=== PATIENT | female | born 1955 | race Caucasian/White ===

== ENCOUNTER 2020-02-29 11:00 | Outpatient (CLI) | payer OTHER, SELFPAY ==
--- NOTE | ~2020-02-29 | CT_ITS ---
EXAMINATION: CT lung screening DATE: 02/29/2020 11:32 INDICATION: History of tobacco dependence TECHNIQUE: Computed tomography (CT) of the chest was performed without intravenous contrast. The dose -length product was 147.28 mGy-cm. Automated exposure control and iterative reconstruction technique were employed. COMPARISON: Chest dated 05/13/2019 FINDINGS: Calcified mediastinal lymph node, consistent with chronic granulomatous disease. No lymphad enopathy. No significant pleural or pericardial effusion. Severe emphysema. No endobronchial lesions. Calcified granuloma right upper lobe. There is an irregular shaped right upper lobe mass measuring 1 .8 x 1.7 x 1.1 cm. IMPRESSION: 1. Lung rads 4B, very suspicious for bronchogenic carcinoma. Recommend further evaluation with pet/CT and/or tissue sampling. 2: Severe emphysema. Reviewed, dictated and finalized at location B.
== END 2020-02-29 11:01 | disposition home or self-care (01) ==
LOC: ANHIMG 11:02
PROVIDERS: PCP Internal Medicine Infectious Disease; Visit Provider Nurse Practitioner Gerontology
DX: Z12.2 Encounter for screening for malignant neoplasm of respiratory organs (principal); Z87.891 Personal history of nicotine dependence; J43.9 Emphysema, unspecified; R91.8 Other nonspecific abnormal finding of lung field
CPT/HCPCS: G0297

== ENCOUNTER 2020-03-16 16:28 | Outpatient (CLI) | payer OTHER, SELFPAY ==
--- NOTE | ~2020-03-16 | US_ITS ---
US soft tissue UE LT 03/16/2020 16:57 Indication: Swelling of the left forearm for 2 months Procedure: High-resolution Limited ultrasound of the left forearm distally and posteriorly in the are a of swelling Comparison: No prior studies for comparison. Findings: Normal heterogeneous echotexture without focal solid or cystic mass. No abnormal fluid laura ections. Impression: 1: Normal soft tissue ultrasound of the left forearm in the area of swelling. No discrete mass. Reviewed, dictated and finalized at location A. Impression: 1: Normal soft tissue ultrasound of the left forearm in the area of swelling. N o discrete mass.
== END 2020-03-16 16:29 | disposition home or self-care (01) ==
PROVIDERS: PCP Internal Medicine Infectious Disease; Visit Provider Internal Medicine Infectious Disease
DX: R22.32 Localized swelling, mass and lump, left upper limb (principal)
CPT/HCPCS: 76882

== ENCOUNTER 2020-04-14 10:35 | Outpatient (CLI) | payer OTHER, SELFPAY ==
--- NOTE | ~2020-04-14 | XR_ITS ---
XR shoulder LT min 2V 04/14/2020 10:52 Indication: Left shoulder pain Procedure: 4 views left shoulder Comparison: No prior studies for comparison. Findings: No fracture, subluxation or dislocation. No significant soft tissue abnormality. No foreign bodies. Visualized lung parenchyma is unremarkable. Impression: 1: No significant bone or joint abnormality. Reviewed, dictated and finalized at location A. Impression: 1: No significant bone or joint abnormality.
== END 2020-04-14 10:36 | disposition home or self-care (01) ==
PROVIDERS: PCP Internal Medicine Infectious Disease; Visit Provider Internal Medicine Infectious Disease
DX: M25.512 Pain in left shoulder (principal)
CPT/HCPCS: 73030

== ENCOUNTER 2020-06-05 12:37 | Outpatient (CLI) | payer OTHER, SELFPAY ==
--- NOTE | 2020-06-12 10:45 | PFT_ITS ---
This report was moved to the correct visit, [id number], on June 14, 2020. Original report was signed by Dr. Perkins on June 13, 2020 at 1047. PFT Interpretation PFT Interpretation: This PFT met all criteria for ATS standards and reproducibility FEV/FVC post bronchodilator 25% FEV1 31% or 0.57 liters FVC 90% or 2.25 liters TLC 207% or 8.41 liters RV 399% RV/TLC 74% DLCO 30% when adjusted for alveolar volume but not adjusted for hemoglobin Flow volume loops showed severe expiratory coving. Impression: Severe airflow obstruction with severe hyperinlfation and air trapping. When compared to 2019 PFT. There has been some worsening of hyperinflation and air trapping but FEV1 has not significantly changed. Clinical correlation is advised. Report Initialized date/time: Meeta Perkins MD 06/13/20 / 1045 Electronically signed by: Meeta Perkins MD 06/13/20 1047 [facility]
--- NOTE | 2020-06-12 10:50 | SIXMIN_ITS ---
This report was moved to the correct visit, [id number], on June 14, 2020 at 1050. Original report was signed by Dr. Perkins on June 13, 2020 at 1053. Six Minute Walk Six Minute Walk: The patients O2 sats started at 94% on 2 liters and dropped as low as 94% on 2 liters Total walk distance was 450 feet using a walker conclusion: This patient did very well with 2 liters of oxgyen. I would recommend using 2 liters 09/03 and no need to increase with exertion Report Initialized date/time: Meeta Perkins MD 06/13/20 / 1050 Electronically signed by: Meeta Perkins MD 06/13/20 1056 [facility]
--- NOTE | 2020-06-13 10:45 | PFT_ITS ---
This report was moved to the correct visit, [id number], on June 14, 2020. Original report was signed by Dr. Perkins on June 13, 2020 at 1047. PFT Interpretation PFT Interpretation: This PFT met all criteria for ATS standards and reproducibility FEV/FVC post bronchodilator 25% FEV1 31% or 0.57 liters FVC 90% or 2.25 liters TLC 207% or 8.41 liters RV 399% RV/TLC 74% DLCO 30% when adjusted for alveolar volume but not adjusted for hemoglobin Flow volume loops showed severe expiratory coving. Impression: Severe airflow obstruction with severe hyperinlfation and air trapping. When compared to 2019 PFT. There has been some worsening of hyperinflation and air trapping but FEV1 has not significantly changed. Clinical correlation is advised. Report Initialized date/time: Meeta Perkins MD 06/13/20 / 1045 Electronically signed by: Meeta Perkins MD 06/13/20 1047 [facility]
== END 2020-06-05 12:38 | disposition home or self-care (01) ==
LOC: ANHPFT 12:38
PROVIDERS: PCP Internal Medicine Infectious Disease; Visit Provider Nurse Practitioner Gerontology
DX: J44.9 Chronic obstructive pulmonary disease, unspecified (principal); J96.10 Chronic respiratory failure, unspecified whether with hypoxia or hypercapnia
CPT/HCPCS: 94060; 94618; 94726; 94729

== ENCOUNTER 2020-07-04 09:04 | Outpatient (CLI) | payer OTHER, SELFPAY ==
--- NOTE | ~2020-07-04 | CT_ITS ---
EXAMINATION: CT chest wo con DATE: 07/04/2020 09:32 INDICATION: Right upper lobe malignant neoplasm TECHNIQUE: Computed tomography (CT) of the chest was performed without intravenous contrast. Automate d exposure control and iterative reconstruction technique were employed. Exam dose: 244.05 mGy-cm to candy exam DLP. COMPARISON: 03/03/2020 CT lung screening FINDINGS: Right upper lung irregular soft tissue mass currently measures approximately 8 x 16 mm maxi mal dimension compared to 9.3 x 18.3 mm maximal dimension on 02/29/2020. Bilateral apical scarring, stable. Severe emphysema is again noted. No pulmonary infiltrate or consolidation. Calcified right upper lobe pulmonary granuloma and calcified right hilar and mediastinal nodes, consi stent with old pulmonary granulomatous disease. No thoracic aortic aneurysm or dissection. Normal heart size. No pericardial or pleural effusion. No hilar or mediastinal mass lesion or lymphadenopathy. Normal morphology of the adrenal glands. Included upper abdominal structures are unremarkable other t brody abdominal aortic calcification, diverticulosis of the splenic flexure of the colon. No suspicious osteolytic or osteoblastic lesions are noted. IMPRESSION: Mildly diminished size of right upper lobe soft tissue mass since 02/29/2020 Emphysema Reviewed, dictated and finalized at Location A. Reviewed, dictated and finalized at location B. 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
== END 2020-07-04 09:05 | disposition home or self-care (01) ==
PROVIDERS: PCP Internal Medicine Infectious Disease; Referring Provider Internal Medicine Medical Oncology; Visit Provider Radiology Radiation Oncology
DX: C34.11 Malignant neoplasm of upper lobe, right bronchus or lung (principal); J43.9 Emphysema, unspecified; F17.210 Nicotine dependence, cigarettes, uncomplicated
CPT/HCPCS: 71250

== ENCOUNTER 2020-07-17 09:00 | Outpatient (RCR) | payer OTHER, SELFPAY ==
[2020-05-24 09:40] VITALS: BP_SYST 108
--- NOTE | 2020-05-24 10:58 | PTOPEVAL ---
INITIAL PHYSICAL THERAPY EVALUATION and PLAN OF CARE Thank you for referring July Lloyd to [facility].? July is scheduled to be seen for physical therapy? 2x/week for 8 weeks. Please review, sign, date and return this plan of care ABENA. I agree with and certify that the following plan of care is medically necessary. Referring Physician Date Admitting Provider: Attending Provider: PHYSICIAN NOT ON STAFF Referring Provider: *PT Outpatient Evaluation Start: 05/24/20 09:53 Freq: Status: Active Protocol: Document 05/24/20 09:40 ALY (Rec: 05/24/20 10:57 ALY [id number]) Therapy Assessment Status Assessment Status Assessment Status Evaluation Outpatient Past Medical History Past Medical History Source of Past Medical History Patient Neurological History Hx Neurological Disorders No Significant History Cardiovascular History Hx Angina Yes Hx Hypercholesterolemia Yes Hx Hypertension Yes Respiratory History Hx Chronic Obstructive Pulmonary Disease Yes: end stage-oxygen all of (COPD) the time Hx Sleep Apnea Yes: moderate to severe Gastrointestinal History Hx Gastrointestinal Disorders No Significant History Genitourinary History Hx Genitourinary Disorders No Significant History Musculoskeletal History Hx Other Musculoskeletal Disorders Yes: L frozen shoulder 2019 Endocrine History Hx Endocrine Disorders No Significant History HEENT History Hx Cataracts Yes: R 2019 Other History Hx Cancer Yes: R lung Hx Radiation Therapy Yes Evaluation Information Problem Diagnosis L shoulder pain - L frozen shoulder Onset end of Spring, beginning Summer Subjective Information increase swelling distal L Query Text:As Reported By Patient/ forearm - testing was negative Family Began to feel pain in L shoulder, progressively got worse with lifting her L arm - then the pain worsened If pillows are supporting L arm - able to lie on L side [place] a pop when walking up the wall - the other day - able to move her arm a little farther. Able to shower and dress herself. Has aide to help her with IADLs, Diagnostic Tests X-Rays For This Problem Yes Prior Level of Function Activity Level (Last 3 Months) Occupation disabled Hand Dominance Right Medications
--- NOTE | 2020-06-07 09:34 | PCPTNOTE ---
Patient called & cancelled scheduled appointment this date due to not feel well.
--- NOTE | 2020-06-13 10:40 | WPDPFTINT ---
PFT Interpretation PFT Interpretation: This PFT met all criteria for ATS standards and reproducibility FEV/FVC post bronchodilator 25% FEV1 31% or 0.57 liters FVC 90% or 2.25 liters TLC 207% or 8.41 liters RV 399% RV/TLC 74% DLCO 30% when adjusted for alveolar volume but not adjusted for hemoglobin Flow volume loops showed severe expiratory coving. Impression: Severe airflow obstruction with severe hyperinlfation and air trapping. When compared to 2019 PFT. There has been some worsening of hyperinflation and air trapping but FEV1 has not significantly changed. Clinical correlation is advised.
--- NOTE | 2020-06-13 10:48 | WPDSIXMINUTE ---
Six Minute Walk Six Minute Walk: The patients O2 sats started at 94% on 2 liters and dropped as low as 94% on 2 liters Total walk distance was 450 feet using a walker conclusion: This patient did very well with 2 liters of oxgyen. I would recommend using 2 liters 09/03 and no need to increase with exertion
[2020-06-21 10:09] VITALS: BP_SYST 125
--- NOTE | 2020-07-02 12:00 | PCPTNOTE ---
Patient called & cancelled scheduled appointment this date due to feeling ill.
[2020-07-17 09:10] VITALS: BP_SYST 135
--- NOTE | 2020-07-17 09:53 | PTOPEVAL ---
PHYSICAL THERAPY DISCHARGE SUMMARY Thank you for referring July Lloyd to [facility].? July has been seen x 10 visits in PT - she needed to cancel a few due to illness. She has made increased gains with L shoulder ROM, strength, and functional abilities with decreased levels of pain. She is ready for d/c from PT to [facility]. I agree with July's discharge from physical therapy. Referring Physician Date Admitting Provider: Attending Provider: PHYSICIAN NOT ON STAFF Referring Provider: *PT Outpatient Evaluation Start: 05/24/20 09:53 Freq: Status: Active Protocol: Document 07/17/20 09:10 ALY (Rec: 07/17/20 09:53 ALY [id number]) Therapy Assessment Status Assessment Status Assessment Status Discharge Evaluation Information Problem Subjective Information July reports that she is Query Text:As Reported By Patient/ using L UE with most Family everything. Only difficulty that she has is with reaching behind her back with L UE. Hardly any pain anymore. Pain Assessment Timing of Pain Assessment Timing of Pain Assessment Assessment Pain Scale Pain Scale Used Numeric (1 - 10) Self Report Pain Assessment Left Shoulder(s) Reported Pain Level 0 Lowest Pain Intensity 0 Greatest Pain Intensity 1 Pain Score Pain Score 0: Self Report Upper Extremity Range of Motion Scapular/ Shoulder Range of Motion Left Shoulder Flexion - Active 140 Shoulder Flexion - Passive 155 Shoulder Extension - Active 60 Shoulder Abduction - Active 122 Shoulder Abduction - Passive 135 Shoulder Medial Rotation - Active 65 Shoulder Medial Rotation - Active L4 Query Text:Reach Behind the Back Shoulder Lateral Rotation - Active 80 Shoulder Lateral Rotation - Active C7 Query Text:Reach Behind the Head Scapular/Shoulder Range of Motion Pain,Soft Tissue Restriction Limitations Scapular/Shoulder Range of Motion ER in neutral - 60 Comments Upper Extremity Muscle Strength Testing Scapular/Shoulder Left Shoulder Flexion Strength 4+ Good + Shoulder Extension Strength 5 Normal Shoulder Abduction Strength 4 Good Shoulder Medial Rotation Strength 5 Normal Shoulder Lateral Rotation Strength 4+ Good + PT Clinical Summary Clinical Summary Protocol: PTEVCODE PT Clinical Summary SPADI - Pain score 6% disability score 10% total score 8% July has progressed well in PT. She has had a decrease in L shoulder pain - especially
== END 2020-07-17 14:58 | disposition home or self-care (01) ==
LOC: ANHPT 09:00
PROVIDERS: PCP Internal Medicine Infectious Disease
DX: M25.519 Pain in unspecified shoulder (principal)
CPT/HCPCS: 97110; 97140; 97162

== ENCOUNTER 2020-10-08 10:58 | Outpatient (CLI) | payer OTHER, SELFPAY ==
--- NOTE | ~2020-10-08 | CT_ITS ---
EXAMINATION:CT diagnostic chest wo con DATE: 10/08/2020 11:24 INDICATION: Lung cancer. TECHNIQUE: Computed tomography (CT) of the chest was performed without intravenous contrast. Automate d exposure control and iterative reconstruction technique were employed. The dose-length product (DLP ) was 295.89 mGy-cm. COMPARISON: Chest CT 07/04/2020, 02/29/2020 FINDINGS: There is severe emphysema. There is mild scarring at the lung apices. A calcified right upp er lobe nodule and calcified right hilar and mediastinal lymph nodes are consistent with old granulom atous disease. There is a 13 mm nodule in right lung upper lobe. There is thickening of the major fis sure in this area. No pleural effusion. The heart size is normal. There are coronary artery calcifica tions. No pericardial effusion. There is mild thoracic spondylosis. IMPRESSION: 1. 13 mm right upper lobe pulmonary nodule, stable from 07/04/2020 and improved from 15 mm on 02/29/20 20. Worsened thickening of the major fissure in this area may be changes of radiation therapy if the patient has that clinical history. 2. Severe emphysema. 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 13 mm right upper lobe pulmonary nodule, stable from 07/04/2020 and improved from 15 mm on 02/29/2020. Worsened thickening of the major fissure in this area may be changes of radiation therapy if the patient has that clinical history. 2. Severe emphysema.
== END 2020-10-08 10:59 | disposition home or self-care (01) ==
PROVIDERS: PCP Internal Medicine Infectious Disease; Visit Provider Radiology Radiation Oncology
DX: C34.11 Malignant neoplasm of upper lobe, right bronchus or lung (principal); F17.210 Nicotine dependence, cigarettes, uncomplicated; J43.9 Emphysema, unspecified
CPT/HCPCS: 71250

== ENCOUNTER 2020-12-11 14:51 | Outpatient (CLI) | payer OTHER, SELFPAY ==
--- NOTE | ~2020-12-11 | MM_ITS ---
EXAMINATION: MM screening lucio BI w arianna HISTORY: Screening mammogram TECHNIQUE: Craniocaudal and mediolateral oblique 3-D tomosynthesis images were obtained and synthetic 2-D images were generated. CAD analysis was submitted and interpreted. COMPARISON: 09/01/2019 bilateral digital screening mammogram BREAST PARENCHYMAL COMPOSITION: There are scattered areas of fibroglandular density. FINDINGS: Stable fibroglandular asymmetry. There is no evidence of suspicious mass, calcification, or architectural distortion to suggest malignancy in either breast. There has been no suspicious interv al change. IMPRESSION: 1. No mammographic evidence of malignancy. 2. Recommend routine screening mammography in one year. BI-RADS Category 2: Benign finding(s). Reviewed, dictated and finalized at location A.
== END 2020-12-11 14:52 | disposition home or self-care (01) ==
LOC: ANHIMG 14:54
PROVIDERS: PCP Internal Medicine Infectious Disease; Visit Provider Internal Medicine Infectious Disease
DX: Z12.31 Encounter for screening mammogram for malignant neoplasm of breast (principal)
CPT/HCPCS: 77063; 77067

== ENCOUNTER 2020-12-31 11:09 | Outpatient (CLI) | payer OTHER, SELFPAY ==
--- NOTE | ~2020-12-31 | CT_ITS ---
EXAMINATION: CT diagnostic chest wo con DATE: 12/31/2020 11:45 INDICATION: Right lung cancer TECHNIQUE: Computed tomography (CT) of the chest was performed without intravenous contrast. The dose -length product (DLP) was 240.08 mGy-cm. Automated exposure control and iterative reconstruction tech [employer] were employed. COMPARISON: 10/08/2020 FINDINGS: A 14 mm nodule in the right upper lobe is not significantly changed since the comparison ex amination. There is stable thickening of the right major fissure adjacent to the nodule. No new pulmo nary nodules are identified. There is severe emphysema. Calcified pulmonary nodules and calcified rig ht hilar and mediastinal lymph nodes are consistent with old granulomatous disease. No pathologically enlarged thoracic lymph nodes are identified. The heart size is normal. There is no pleural effusion or pneumothorax. There is mild thoracic spondylosis. Calcified coronary artery atherosclerosis is no caroline. IMPRESSION: 1. Stable right upper lobe nodule, consistent with primary bronchogenic carcinoma. 2. Stable thickening of the adjacent major fissure, possibly radiation change. Reviewed, dictated and finalized at location A. IMPRESSION: 1. Stable right upper lobe nodule, consistent with primary bronchogenic carcino ma. 2. Stable thickening of the adjacent major fissure, possibly radiation change.
== END 2020-12-31 11:10 | disposition home or self-care (01) ==
PROVIDERS: PCP Internal Medicine Infectious Disease; Visit Provider Radiology Radiation Oncology
DX: C34.11 Malignant neoplasm of upper lobe, right bronchus or lung (principal); F17.210 Nicotine dependence, cigarettes, uncomplicated; R91.8 Other nonspecific abnormal finding of lung field
CPT/HCPCS: 71250

== ENCOUNTER 2021-04-01 10:36 | Outpatient (CLI) | payer OTHER, SELFPAY ==
--- NOTE | ~2021-04-01 | CT_ITS ---
EXAMINATION: CT diagnostic chest wo con DATE: 04/01/2021 11:04 INDICATION: malignant neoplasm upper lobe, RT bronchus, nicotine depende TECHNIQUE: Computed tomography (CT) of the chest was performed without intravenous contrast. Addition al 3D reconstructions utilizing coronal maximum intensity projection (MIP) were performed. Automated exposure control and iterative reconstruction technique were employed. The dose-length product was 29 1.33 mGy-cm. COMPARISON: 12/31/2020 and 02/29/2020 FINDINGS: Severe upper lung predominant emphysema. No interval change since the most recent study of a 13 x 10 mm right upper lobe nodule which measured up to 1.7 x 1.1 cm on 02/29/2020. Unchanged underlying small region of pleural thickening and scarring which is also new since 02/29/2020 suggesting interval radi ation treatment. Calcified right upper lobe nodule and calcified right hilar and mediastinal lymph no colin consistent with old granulomatous disease. No other airspace opacities, pulmonary edema or pleura l effusion. Heart size is normal. Atherosclerotic coronary artery calcification and aortic valve calc ification. No pericardial effusion. Thoracic aorta is normal in caliber. No pathologically enlarged t horacic lymphadenopathy. Visualized upper abdomen is unremarkable. Moderate thoracic spondylosis. IMPRESSION: 1. No interval change in a 13 x 10 mm right upper lobe nodule with overlying region of lateral proxim al scarring with pleural thickening likely representing radiation treated primary bronchogenic carcin adam. Reviewed, dictated and finalized at location A. IMPRESSION: 1. No interval change in a 13 x 10 mm right upper lobe nodule with overlying re gion of lateral proximal scarring with pleural thickening likely representing r adiation treated primary bronchogenic carcinoma.
== END 2021-04-01 10:37 | disposition home or self-care (01) ==
LOC: ANHIMG 10:45
PROVIDERS: PCP Internal Medicine Infectious Disease; Visit Provider Radiology Radiation Oncology
DX: C34.11 Malignant neoplasm of upper lobe, right bronchus or lung (principal); F17.210 Nicotine dependence, cigarettes, uncomplicated
CPT/HCPCS: 71250

== ENCOUNTER 2021-06-11 12:54 | Outpatient (CLI) | payer MEDICARE, MEDICAID, SELFPAY ==
--- NOTE | ~2021-06-11 | XR_ITS ---
XR chest 2V 06/11/2021 13:24 Indication: COPD and shortness of breath Procedure: PA and lateral views of the chest Comparison: 05/13/2019 Findings: There is focal infiltrate of the right upper lobe which is new compared with prior study. C alcified granuloma right upper lung zone. The lungs are hyperinflated which is consistent with, but n ot diagnostic of chronic obstructive pulmonary disease. No significant effusion or pneumothorax. Hear t size normal. Impression: 1: Focal infiltrate right upper lobe which may represent atelectasis or pneumonia. Developing mass le ss favored. Recommend follow-up chest x-ray in 3-4 weeks following appropriate therapy to assess for resolution. If no resolution at that time, follow-up CT chest recommended. Reviewed, dictated and finalized at location A. Impression: 1: Focal infiltrate right upper lobe which may represent atelectasis or pneumon ia. Developing mass less favored. Recommend follow-up chest x-ray in 3-4 weeks following appropriate therapy to assess for resolution. If no resolution at elle t time, follow-up CT chest recommended.
== END 2021-06-11 12:55 | disposition home or self-care (01) ==
PROVIDERS: PCP Internal Medicine Infectious Disease
DX: J44.9 Chronic obstructive pulmonary disease, unspecified (principal)
CPT/HCPCS: 71046

== ENCOUNTER 2021-07-08 10:01 | Outpatient (CLI) | payer MEDICARE, MEDICAID, SELFPAY ==
--- NOTE | ~2021-07-08 | CT_ITS ---
EXAMINATION: CT diagnostic chest wo con EXAM DATE: 07/08/2021 10:29 INDICATION: Bronchogenic carcinoma of right lung, post treatment. TECHNIQUE: Spiral CT of the chest without contrast. Axial, coronal and sagittal images of the chest were reviewed. Coronal maximum intensity pixel images of chest reviewed. The dose-length product ( DLP) for this examination was 301.92 mGy-cm. The exposure was tailored according to patient size (au to mA exposure control), and iterative reconstruction (ASIR) was used as additional dose reduction te chnique. Comparison is made to prior examination from 04/01/2021. FINDINGS: Stable 13 x 10 mm right apical pleural-based density consistent with treated lung cancer. There is adjacent chronic pleural thickening and subacute appearing right 4th rib at same posterolate ral location, could be pathologic from radiation related osteitis. There is severe chronic emphysema and hyperinflation. There are no pleural or pericardial effusions. Tracheobronchial tree is patent. There is no media stinal, hilar or axillary lymphadenopathy. There is no pneumothorax. Heart normal in size. Ther e is mild coronary arterial calcification, arterial sclerosis. Upper abdomen is unremarkable. Ther e is mild thoracic spondylosis without osteoblastic or osteolytic lesions identified. IMPRESSION: 1. Stable treated right upper lobe lung cancer. 2. Underlying pleural thickening and subacute right 4th rib fracture probably pathological from radi ation osteitis. 3. Severe emphysema and hyperinflation. Reviewed, dictated and finalized at location A. 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 Stable treated right upper lobe lung cancer. 2. 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 3. Severe emphysema and hyperinflation.
== END 2021-07-08 10:02 | disposition home or self-care (01) ==
PROVIDERS: PCP Internal Medicine Infectious Disease; Visit Provider Radiology Radiation Oncology
DX: C34.91 Malignant neoplasm of unspecified part of right bronchus or lung (principal); J43.9 Emphysema, unspecified; R91.8 Other nonspecific abnormal finding of lung field
CPT/HCPCS: 71250

== ENCOUNTER 2021-09-24 16:14 | Emergency (ER) | payer MEDICARE, MEDICAID, SELFPAY ==
[2021-09-24] VITALS (14 sets, daily range): BP systolic 104–157; BP diastolic 62–96; PULSE 99–112; RESP 14–24; TEMP 36.6–36.9; O2SAT 95–100
--- NOTE | ~2021-09-24 | XR_ITS ---
EXAMINATION: XR chest 1V portable DATE: 09/24/2021 16:57 INDICATION: Shortness of breath. TECHNIQUE: A single frontal view of the chest was obtained. COMPARISON: Chest CT 07/08/2021, chest 2 views 06/11/2021 FINDINGS: There are lucencies in the lungs, consistent with emphysema. A calcified right lung nodule is consistent with old granulomatous disease. There is a 3 cm mass in right upper lobe. There is a di ffuse interstitial pattern in the lungs. No pleural effusion or pneumothorax. The heart size is job l. There are prominent paracardial fat pads. There are pathologic fractures of right fourth and fifth ribs. IMPRESSION: 1. Worsened mass in right lung upper lobe, consistent with primary bronchogenic carcinoma and treatme nt changes. 2. Pathologic fractures of right fourth and fifth ribs. 3. New interstitial pattern in the lungs suspicious for pulmonary edema versus atypical pneumonia. 4. Emphysema. Reviewed, dictated and finalized at location A. ACCOUNTANT IMPRESSION: 1. Worsened mass in right lung upper lobe, consistent with primary bronchogenic carcinoma and treatment changes. 2. Pathologic fractures of right fourth and fifth ribs. 3. New interstitial pattern in the lungs suspicious for pulmonary edema versus atypical pneumonia. 4. Emphysema.
--- NOTE | ~2021-09-24 | CT_ITS ---
EXAMINATION: CTA chest PE protocol DATE: 09/24/2021 18:24 INDICATION: Chest pain. Shortness of breath. TECHNIQUE: Computed tomography angiography (CTA) of the chest was performed with 100 mL Omnipaque-350 intravenous contrast timed to evaluate the pulmonary arteries. Coronal maximum intensity projection 3D-reconstructions were created by the technologist. Automated exposure control and iterative reconst ruction technique were employed. The dose-length product was 609.56 mGy-cm. COMPARISON: Chest CT 07/08/2021, 02/29/20 FINDINGS: There is severe emphysema. There is mild scarring at the lung apices. There are peripheral airspace opacities in right upper lobe measuring 4.3 x 1.5 cm. A calcified right lung nodule and calc ified right hilar lymph nodes are consistent with old granulomatous disease. There are airspace opaci ties in apicoposterior segment left upper lobe. There is septal thickening in left upper lobe. There are airspace opacities involving the lingula. No pleural effusion. The heart size is normal. No peric ardial effusion. There is no pulmonary embolus. There are healing fractures of right third, fourth, a nd fifth ribs. There is mild thoracic spondylosis. IMPRESSION: 1. Stable peripheral airspace opacities in right upper lobe, consistent with primary bronchogenic car cinoma and changes of radiation therapy. 2. Airspace opacities and septal thickening in left upper lobe, likely pneumonia. 3. Severe emphysema. 4. No pulmonary embolus. Reviewed, dictated and finalized at location A. R SPRAYER IMPRESSION: 1. Stable peripheral airspace opacities in right upper lobe, consistent with pr imary bronchogenic carcinoma and changes of radiation therapy. 2. Airspace opacities and septal thickening in left upper lobe, likely pneumoni a. 3. Severe emphysema. 4. No pulmonary embolus.
--- NOTE | 2021-09-24 16:24 | ECG_ITS ---
Measurements Intervals [place] Rate: 105 P: 78 VT: 132 QRS: 83 QRSD: 89 T: 50 QT: 340 QTc: 451 Interpretive Statements SINUS TACHYCARDIA BORDERLINE ST ABNORMALITY- ANTEROLATERAL LEADS BASELINE ARTIFACT- I, II, III, AVR, AVL, AVF, V1-V6 BORDERLINE ECG Electronically Signed On 09-25-2021 6:29:40 INTERNETWORKING TECHNICIAN by Sumeet Rutherford D.O.
[2021-09-24 16:37] LABS: Basophils Percent Auto 0.3 % (0.2-1.2); Eosinophils Absolute Auto 0.2 K/mm3 (0-0.3); Eosinophils Percent Auto 1.4 % (0-4.4); Hemoglobin 12.5 g/dL (12.0-15.0); Immature Granulocyte Absolute 0.04 K/mm3 (0.00-0.031); Immature Granulocyte Percent A 0.4 % (0-0.5); Lymphocytes Absolute Auto 0.86 K/mm3 (0.9-3.2); Lymphocytes Percent Auto 7.9 % (18.3-44.2); Mean Corpuscular HGB Conc 32.1 g/dl (32-36); Mean Corpuscular Hemoglobin 28.3 pg (26-34); Mean Corpuscular Volume 88.2 fl (80-100); Monocytes Absolute Auto 0.7 K/mm3 (0.1-0.6); Monocytes Percent Auto 6.8 % (2.6-8.5); Neutrophils Percent Auto 83.2 % (45.5-73.1); Platelet Count Result 316 k/mm3 (150-375); Red Blood Count 4.42 M/mm3 (4.2-5.4); Red Cell Distribution Width 13.2 % (11.5-14.5); White Blood Count 10.8 K/mm3 (4.5-10.0)
[2021-09-24 16:51] LABS: Alanine Aminotransferase 41 U/L (4-35); Albumin Level 4.5 g/dL (3.5-5.1); Alkaline Phosphatase 199 U/L (38-126); Anion Gap 10 mmol/L (8-16); Aspartate Amino Transferase 61 U/L (14-36); Bilirubin,Total 0.4 mg/dL (0.2-1.3); Blood Urea Nitrogen 15 mg/dL (7-17); Calcium 9.8 mg/dL (8.4-10.2); Carbon Dioxide 27 mmol/L (22-30); Chloride 99 mmol/L (98-107); Estimated CRCL calculation 71 ml/min; Estimated Glomerular Filt Rate > 60; Glucose 182 mg/dL (65-110); Potassium 3.4 mmol/L (3.4-5.0); Sodium 136 mmol/L (137-145)
--- NOTE | 2021-09-24 17:25 | ED.GENADULT ---
HPI - General Adult General Chief complaint: Fever Stated complaint: MULTIPLE C/O Time Seen by Provider: 09/24/21 16:28 Source: patient and RN notes reviewed History of Present Illness HPI narrative: Patient is 66 y/o female complaining of fever starting 2 days ago. She states that her fever is up to 103. She has been taking Tylenol, which usually helps bring the fever down. She also has cough, SOB and chest pain. She is on O2 at home for COPD. She has history of lung cancer and she received radiation in the past. Related Data Allergies Allergy/AdvReac Type Severity Reaction Status Date / Time oxycodone Allergy Severe Unknown Verified 09/24/21 18:32 meperidine Allergy Unknown Unknown Verified 09/24/21 18:32 Review of Systems Constitutional: Constitutional: Denies chills, Reports fever(s), Denies headache(s) and Denies weakness Eyes: Eyes: Denies blurry vision ENT: Denies headache(s) and Denies neck pain Cardiovascular: Cardiovascular: Reports chest pain and Reports dyspnea Respiratory: Respiratory: Reports cough and Reports dyspnea Gastrointestinal: Gastrointestinal: Denies abdominal pain, Denies diarrhea, Denies nausea and Denies vomiting Genitourinary: Genitourinary: Denies hematuria and Denies dysuria Musculoskeletal: Musculoskeletal: Denies back pain and Denies neck pain Neurologic: Denies headache(s) and Denies weakness Exam Const: General: no acute distress and well developed Orientation/consciousness: oriented to person, oriented to place, oriented to time and patient oriented x3 HENMT: Head: normocephalic Ears: external ears normal General nose exam: Normal external nose present Eyes: General: appearance normal, both eyes and all related structures Conjunctivae: conjunctivae normal Neck: Neck: normal visual inspection and full ROM Chest: Chest palpation & inspection: normal inspection of the chest and no tenderness Resp: Effort & Inspection: normal respiratory effort Auscultation: clear to auscultation bilaterally Cardio: Rate: regular rate Rhythm: regular rhythm GI: GI Palp: No abdominal tenderness and Yes Soft to palpation Skin: General skin exam: normal color and turgor normal Neuro: General: oriented to person, oriented to place, oriented to time and patient oriented x3 Cognition (Neuro): normal cognition Extrem: General: normal to inspection, full ROM and no pedal edema Psych: Appearance: grossly normal Mental Status: mental status grossly normal Affect: normal affect Course Reevaluation(s) Reevaluation #1: Offered patient admission for observation and IV antibiotics, but patient declined. Date: 09/24/21 Consultations Consultation #1: Discussed with Dr. Woods, who agrees to admit. Date: 09/24/21 Time: 23:21 Vital Signs Vital signs: Vital Signs Temperature 36.6 C 09/24/21 16:19 Pulse Rate 112 H 09/24/21 16:19 Respiratory Rate 23 H 09/24/21 16:19 Blood Pressure 157/77 H 09/24/21 16:19 Pulse Oximetry 100 09/24/21 16:19 Temperature 36.9 C 09/24/21 19:28 Pulse Rate 108 H 09/25/21 00:54 Respiratory Rate 24 H 09/25/21 00:54 Blood Pressure 127/78 09/25/21 00:54 Pulse Oximetry 98 09/25/21 00:54 Medical Decision Making Vital Signs Vital Signs: Vital Signs Temperature 36.6 C 09/24/21 16:19 Pulse Rate 112 H 09/24/21 16:19 Respiratory Rate 23 H 09/24/21 16:19 Blood Pressure 157/77 H 09/24/21 16:19 Pulse Oximetry 100 09/24/21 16:19 Temperature 36.9 C 09/24/21 19:28 Pulse Rate 108 H 09/25/21 00:54 Respiratory Rate 24 H 09/25/21 00:54 Blood Pressure 127/78 09/25/21 00:54 Pulse Oximetry 98 09/25/21 00:54 Lab Data Result diagrams: 09/24/21 16:31 09/24/21 16:31 Labs: Lab Results 09/24/21 09/24/21 09/24/21 Range/Units 16:31 16:31 16:31 WBC 10.8 H (4.5-10.0) K/mm3 RBC 4.42 (4.2-5.4) M/mm3 Hgb 12.5 (12.0-15.0) g/dL Hct 39.0 (37.0-47.0) % MCV 88.2 (80-100)
[2021-09-24] MEDS: ONDANSETRON INJ 4 MG/2 ML VIAL IV PUSH (18:33)
[2021-09-24 18:36] LABS: Troponin I < 0.012 ng/mL (0.000-0.034)
[2021-09-24 21:38] LABS: Troponin I < 0.012 ng/mL (0.000-0.034)
[2021-09-25 00:54] VITALS: BP 127/78; PULSE 108; RESP 24; O2SAT 98
== END 2021-09-25 00:55 | disposition home or self-care (01) ==
PROVIDERS: Emergency Medicine; Emergency Provider Emergency Medicine; PCP Internal Medicine Infectious Disease
DX: J18.9 Pneumonia, unspecified organism (principal); C34.91 Malignant neoplasm of unspecified part of right bronchus or lung; J44.9 Chronic obstructive pulmonary disease, unspecified; Z99.81 Dependence on supplemental oxygen; R00.0 Tachycardia, unspecified; R94.31 Abnormal electrocardiogram [ECG] [EKG]
CPT/HCPCS: 36415; 71045; 71275; 80053; 84484; 85025; 93005; 96365; 96368; 96375; 99284; J0456; J0696; J2405; Q9967

== ENCOUNTER 2021-10-09 09:55 | Outpatient (CLI) | payer MEDICARE, MEDICAID, SELFPAY ==
--- NOTE | ~2021-10-09 | CT_ITS ---
EXAMINATION: CT diagnostic chest wo con EXAM DATE: 10/09/2021 10:22 INDICATION: Bronchogenic Carcinoma Of Right Lung TECHNIQUE: Spiral CT of the chest without contrast. Axial, coronal and sagittal images of the chest were reviewed. Coronal maximum intensity pixel images of chest reviewed. The dose-length product ( DLP) for this examination was 273.26 mGy-cm. The exposure was tailored according to patient size (au to mA exposure control), and iterative reconstruction (ASIR) was used as additional dose reduction te chnique. There is no prior study for comparison. FINDINGS: Interval decrease in size, volume of previously seen left upper lobe, suprahilar airspace disease, could be resolving pneumonia given that prior study was 2 weeks ago. Stable appearance to farheen henry's treated right upper lobe cancer. Right 3rd-5th subacute appearing rib fractures, could be pat hologic from radiation osteitis. There are no pleural or pericardial effusions. Tracheobronchial t ree is patent. There is no mediastinal, hilar or axillary lymphadenopathy. There is no pneumothor ax. Heart normal in size. There is mild coronary arterial calcification, arterial sclerosis. Upp er abdomen is unremarkable. Lower rib bone island. There is moderate emphysema. IMPRESSION: 1. Stable treated right upper lobe cancer. 2. Improving left upper lobe airspace disease which would be most consistent with pneumonia. 3. Right 3rd-5th rib fractures could be from radiation osteitis. 4. Moderate emphysema. Reviewed, dictated and finalized at location G. DIRECTOR IMPRESSION: 1. Stable treated right upper lobe cancer. 2. Improving left upper lobe airspace disease which would be most consistent w ith pneumonia. 3. Right 3rd-5th rib fractures could be from radiation osteitis. 4. Moderate emphysema.
== END 2021-10-09 09:56 | disposition home or self-care (01) ==
LOC: ANHIMG 10:03
PROVIDERS: PCP Internal Medicine Infectious Disease; Visit Provider Radiology Radiation Oncology
DX: C34.11 Malignant neoplasm of upper lobe, right bronchus or lung (principal); I25.10 Atherosclerotic heart disease of native coronary artery without angina pectoris; S22.41XA Multiple fractures of ribs, right side, initial encounter for closed fracture; J43.9 Emphysema, unspecified
CPT/HCPCS: 71250

== ENCOUNTER 2022-01-23 10:02 | Outpatient (CLI) | payer MEDICARE, MEDICAID, SELFPAY ==
--- NOTE | 2022-01-23 12:42 | WPDSIXMINUTE ---
Six Minute Walk Procedure Procedure Performed Pulmonary Stress Test (6 min walk) Six Minute Walk Six Minute Walk: this 6 minute walk test was carried out with the patient breathing supplemental oxygen 2 liters/minute. The pre walk oxyhemoglobin saturation was 98%. The patient walked over 121 m with 1 stop during testing. During the walk, the oxyhemoglobin saturation remained 90% or higher. The perceived dyspnea on the Elia scale was 0 at baseline and increased to 2 at the end of the testing. Impression: No evidence of oxyhemoglobin desaturation on this testing.
--- NOTE | 2022-01-23 12:45 | WPDPFTINT ---
PFT Procedure Performed PFT Procedure Performed Spirometry with Pre/Post Bronchodilator Plethysmography (Lung Vol) Diffusing Cap (DLCO) Flow Vol Loop PFT Interpretation Lung volumes were measured with the body plethysmography method. The elevated FRC and RV are indicative of air trapping. Spirometry showed diminished expiratory flow rates and a diminished FEV1 to FVC ratio of 24%, indicative of very severe obstructive airway disease. Following administration of a bronchodilator, there was no significant change in the expiratory flow rates. Lung diffusion capacity is severely reduced at 27% predicted. The flow volume loop is consistent with severe emphysema. In comparison to previous study done in 20, the post bronchodilator measurement of FVC is now lower by approximately 0.4 L whereas FEV1 and Lung diffusion capacity are essentially unchanged. Also since the previous study, there has been less air trapping from lung volume measurements. Impression: Very severe obstructive airway disease with evidence of air trapping and no response to bronchodilators on this testing. Severely reduced lung diffusion capacity.
== END 2022-01-23 10:03 | disposition home or self-care (01) ==
LOC: ANHPFT 10:04
PROVIDERS: PCP Internal Medicine Infectious Disease
DX: J44.9 Chronic obstructive pulmonary disease, unspecified (principal); R94.2 Abnormal results of pulmonary function studies
CPT/HCPCS: 94060; 94618; 94726; 94729

== ENCOUNTER 2022-04-08 12:13 | Outpatient (CLI) | payer MEDICARE, MEDICAID, SELFPAY ==
--- NOTE | ~2022-04-08 | CT_ITS ---
EXAMINATION: CT diagnostic chest wo con DATE: 04/08/2022 12:34 INDICATION: Bronchogenic carcinoma of the right lung TECHNIQUE: Computed tomography (CT) of the right was performed without intravenous contrast. The dose -length product (DLP) was 213.92 mGy-cm. Automated exposure control and iterative reconstruction tech MyFrontStepsque were employed. COMPARISON: 10/09/2021 FINDINGS: There is severe emphysema. There are stable subpleural airspace opacities of the right uppe r lobe. There are chronic fractures of right third, fourth, and fifth ribs. Left perihilar upper lobe airspace opacities are nearly completely resolved. There is some residual scarring, likely postinfec tious. No new opacities are identified. No pleural effusion or pneumothorax. No pathologically enlarg ed thoracic lymph nodes are identified. The heart size is normal. Calcified coronary artery atheroscl erosis is noted. There is mild thoracic spondylosis. IMPRESSION: 1. Stable changes in the right upper lobe, consistent with treated malignancy. 2. Left upper lobe scarring. 3. Severe emphysema. Reviewed, dictated and finalized at location B.
== END 2022-04-08 12:14 | disposition home or self-care (01) ==
PROVIDERS: PCP Internal Medicine Infectious Disease; Visit Provider Radiology Radiation Oncology
DX: C34.91 Malignant neoplasm of unspecified part of right bronchus or lung (principal); J43.9 Emphysema, unspecified; R91.8 Other nonspecific abnormal finding of lung field
CPT/HCPCS: 71250

== ENCOUNTER 2022-04-11 08:05 | Outpatient (CLI) | payer MEDICARE, MEDICAID, SELFPAY ==
[2022-04-11 08:15] VITALS: PULSE 66; O2SAT 95
[2022-04-11 08:20] VITALS: PULSE 75; O2SAT 86
[2022-04-11 08:25] VITALS: PULSE 77; O2SAT 88
[2022-04-11 08:30] VITALS: PULSE 78; O2SAT 91
[2022-04-11 08:40] VITALS: PULSE 68; O2SAT 95
--- NOTE | 2022-04-11 08:46 | HOMEO2EVAL ---
Evaluation was performed at [facility] Home Oxygen Evaluation RC: Home Oxygen (O2) Evaluation Start: 04/11/22 08:42 Freq: Status: Active Protocol: RPE Activity Type Activity Date Activity User E-sign Co-sign Detail Recorded Client Recorded Date Recorded By Document 04/11/22 08:15 [email or web address] [email or web address] 04/11/22 08:46 DJO Document 04/11/22 08:20 [email or web address] [email or web address] 04/11/22 08:46 DJO Document 04/11/22 08:25 [email or web address] [email or web address] 04/11/22 08:46 DJO Document 04/11/22 08:30 [email or web address] [email or web address] 04/11/22 08:46 DJO Document 04/11/22 08:40 [email or web address] [email or web address] 04/11/22 08:46 DJO 04/11/22 04/11/22 04/11/22 08:15 08:20 08:25 Home O2 Evaluation Test Phase Resting Exercise Exercise Oxygen Delivery Room Air Room Air Nasal Cannula Oxygen Flow Rate (L/min) 1 Pulse Oximetry (90-100 %) 95 86 L 88 L Pulse Rate (60-100 beats/min) 66 75 77 Activity Tolerance Ambulation Distance (feet) Ambulation Distance (meters) Treatment Charges O2 Evaluation - Outpatient 04/11/22 04/11/22 08:30 08:40 Home O2 Evaluation Test Phase Exercise Resting Oxygen Delivery Nasal Cannula Room Air Oxygen Flow Rate (L/min) 2 Pulse Oximetry (90-100 %) 91 95 Pulse Rate (60-100 beats/min) 78 68 Activity Tolerance Good Ambulation Distance (feet) 500 Ambulation Distance (meters) 152.39 Treatment Charges
== END 2022-04-11 08:06 | disposition home or self-care (01) ==
PROVIDERS: PCP Internal Medicine Infectious Disease; Visit Provider Nurse Practitioner Gerontology
DX: J44.9 Chronic obstructive pulmonary disease, unspecified (principal)
CPT/HCPCS: 94618

== ENCOUNTER 2022-06-24 09:02 | Outpatient (CLI) | payer MEDICARE, MEDICAID, SELFPAY ==
--- NOTE | ~2022-06-24 | MM_ITS ---
EXAMINATION: MM screening [facility] BI w arianna HISTORY: Screening mammogram TECHNIQUE: Craniocaudal and mediolateral oblique 3-D tomosynthesis images were obtained and synthetic 2-D images were generated. CAD analysis was submitted and interpreted. COMPARISON: 12/11/2020, 09/01/2019 bilateral screening mammogram examinations BREAST PARENCHYMAL COMPOSITION: There are scattered areas of fibroglandular density. FINDINGS: Stable mild fibroglandular asymmetry. There are a few benign calcifications. There is no ev idence of suspicious mass, calcification, or architectural distortion to suggest malignancy in either breast. There has been no suspicious interval change. IMPRESSION: 1. No mammographic evidence of malignancy. 2. Recommend routine screening mammography in one year. BI-RADS Category 2: Benign finding(s). Reviewed, dictated and finalized at location A. RIOR WIRER
== END 2022-06-24 09:03 | disposition home or self-care (01) ==
PROVIDERS: PCP Internal Medicine Infectious Disease; Visit Provider Internal Medicine Infectious Disease
DX: Z12.31 Encounter for screening mammogram for malignant neoplasm of breast (principal)
CPT/HCPCS: 77063; 77067

== ENCOUNTER 2022-10-10 12:15 | Outpatient (CLI) | payer MEDICARE, MEDICAID, SELFPAY ==
--- NOTE | ~2022-10-10 | CT_ITS ---
CT Scan of the Chest without Contrast: Clinical Indication: Lung cancer Technique: Contiguous sections were acquired throughout the chest without intravenous contrast. Dose reduction technique was used on this scan by utilizing automated exposure control and iterative recon struction technique. The dose-length product (DLP) was 310.60 mGy-cm. COMPARISON: 04/08/2022 Findings: There is no evidence of any significant mediastinal, hilar or axillary lymphadenopathy. The mediastin al soft tissues appear normal. There is no evidence of pleural or pericardial effusion. Severe emphysema noted. Stable scarring noted in the right upper lobe, with possible postoperative sc arring present. Calcified granuloma unchanged. No new pulmonary abnormality seen. Stable chronic rib fracture deformities of the lateral right fourth and fifth ribs are noted. Images through the upper abdomen reveal no abnormalities. Impression: Stable pulmonary findings in the right upper lobe, suggestive of scarring and possible postoperative or post therapy change. No distinct evidence for active malignancy or metastatic disease. Severe emphysema. Reviewed, dictated and finalized at location M. ER TECH Impression: Stable pulmonary findings in the right upper lobe, suggestive of scarring and p ossible postoperative or post therapy change. No distinct evidence for active m alignancy or metastatic disease. Severe emphysema.
== END 2022-10-10 12:16 | disposition home or self-care (01) ==
PROVIDERS: PCP Internal Medicine Infectious Disease; Visit Provider Radiology Radiation Oncology
DX: C34.91 Malignant neoplasm of unspecified part of right bronchus or lung (principal); J43.9 Emphysema, unspecified
CPT/HCPCS: 71250

== ENCOUNTER 2023-04-13 09:37 | Outpatient (CLI) | payer MEDICARE, MEDICAID, SELFPAY ==
--- NOTE | ~2023-04-13 | CT_ITS ---
CT Scan of the Chest without Contrast: Clinical Indication: Right lung cancer Technique: Contiguous sections were acquired throughout the chest without intravenous contrast. Dose reduction technique was used on this scan by utilizing automated exposure control and iterative recon struction technique. The dose-length product (DLP) was 346.00 mGy-cm. COMPARISON: 10/10/2022 Findings: There is no evidence of any significant mediastinal, hilar or axillary lymphadenopathy. The mediastin al soft tissues appear normal. There is no evidence of pleural or pericardial effusion. There is moderate to advanced pulmonary emphysema. Probable prior resection in the right lung. Stable areas of chronic pulmonary scarring. Stable calcified right lung granuloma. Images through the upper abdomen reveal no abnormalities. Impression: No change from prior exam. Prior postoperative/post therapy changes in the right upper lobe. Moderate to severe emphysema with areas of chronic bibasilar scarring. Reviewed, dictated and finalized at [facility]. Impression: No change from prior exam. Prior postoperative/post therapy changes in the righ t upper lobe. Moderate to severe emphysema with areas of chronic bibasilar scarring.
== END 2023-04-13 09:38 | disposition home or self-care (01) ==
PROVIDERS: PCP Internal Medicine Infectious Disease; Visit Provider Radiology Radiation Oncology
DX: C34.91 Malignant neoplasm of unspecified part of right bronchus or lung (principal); J43.9 Emphysema, unspecified
CPT/HCPCS: 71250

== ENCOUNTER 2023-05-15 09:17 | Outpatient (CLI) | payer MEDICARE, MEDICAID, SELFPAY ==
[2023-05-15 10:18] LABS: NT Pro B Type Natriuretic Pept 59 pg/mL (19.9-100)
[2023-05-15 11:24] LABS: Microalbumin Urine Random 20.3 mg/L (0-16.7)
[2023-05-15 11:33] LABS: Creatinine Urine 76.2 mg/dL; MALB Creatinine Ratio 26.6 mg/g (0-30)
[2023-05-20 12:51] LABS: Lipoprotein A 24 nmol/L (<75)
== END 2023-05-15 09:18 | disposition home or self-care (01) ==
PROVIDERS: PCP Internal Medicine Infectious Disease; Visit Provider Internal Medicine Cardiovascular Disease
DX: G47.33 Obstructive sleep apnea (adult) (pediatric) (principal); I51.89 Other ill-defined heart diseases; I25.10 Atherosclerotic heart disease of native coronary artery without angina pectoris; Z82.49 Family history of ischemic heart disease and other diseases of the circulatory system; E78.5 Hyperlipidemia, unspecified; E55.9 Vitamin D deficiency, unspecified; I10 Essential (primary) hypertension; C34.90 Malignant neoplasm of unspecified part of unspecified bronchus or lung
CPT/HCPCS: 36415; 82043; 83695; 83880; 86141

== ENCOUNTER 2023-07-20 09:36 | Outpatient (CLI) | payer MEDICARE, MEDICAID, SELFPAY ==
--- NOTE | 2023-07-27 12:17 | WPDPFTINT ---
PFT Procedure Performed PFT Procedure Performed Plethysmography (Lung Vol) Diffusing Cap (DLCO) Flow Vol Loop Spirometry w/o Bronchodil PFT Interpretation DOS: 07/20/2023 REQUESTING: Dr. Errol Harrison REASON FOR TESTING: asthma Results are reliable and reproducible. SPIROMETRY: FEV1 is 0.5 L, 24% predicted, extremely reduced. FVC is 1.88 L, 71% predicted, mildly reduced. The FEV1/FVC ratio is 27%, marked extremely reduced consistent with airflow obstruction. No bronchodilator was given. LUNG VOLUMES: Total lung capacity is 5.52 L, 120% predicted, within the normal range. Residual volume 3.47 L, 175% predicted, elevated consistent with air trapping. RV/TLC is 63%, consistent with air trapping. Airway resistance is 19.99, extremely increased. DIFFUSION DLCO is 5.0, 26% predicted, extremely reduced. DLCO/VA is 1.8, 40% predicted, extremely reduced. FLOW VOLUME LOOP: There is extreme coving of the expiratory limb consistent with airflow obstruction. IMPRESSION: this study shows extremely severe obstructive ventilatory impairment with moderately severe air trapping and extremely severe diffusion impairment. No bronchodilator was given. Compared to a prior study on 01/23/2022 values are similar. The FEV1 was 0.49 L,, severe airflow obstruction was present, lung volumes were similar. Diffusion was similar. On the prior study bronchodilator was given but there was not a significant response. Disha Eldridge MD
== END 2023-07-20 09:37 | disposition home or self-care (01) ==
PROVIDERS: PCP Internal Medicine Infectious Disease
DX: J45.40 Moderate persistent asthma, uncomplicated (principal)
CPT/HCPCS: 94375; 94726; 94729

== ENCOUNTER 2023-10-15 12:37 | Outpatient (CLI) | payer MEDICARE, MEDICAID, SELFPAY ==
--- NOTE | ~2023-10-15 | CT_ITS ---
CT Scan of the Chest without Contrast: Clinical Indication: Lung cancer Technique: Contiguous sections were acquired throughout the chest without intravenous contrast. Dose reduction technique was used on this scan by utilizing automated exposure control and iterative recon struction technique. The dose-length product (DLP) was 315.87 mGy-cm. COMPARISON: 04/13/2023 Findings: There is no evidence of any significant mediastinal, hilar or axillary lymphadenopathy. The mediastin al soft tissues appear normal. There is no evidence of pleural or pericardial effusion. Stable area of scarring and/or pleural thickening at the right upper lobe region. Advanced emphysema present. Images through the upper abdomen reveal no abnormalities. Impression: No evidence for active malignancy or metastatic disease. Stable linear scarring and/or pleural thickening at the right upper lobe region. Advanced emphysema. Reviewed, dictated and finalized at [facility]. TER SUPERVISOR Impression: No evidence for active malignancy or metastatic disease. Stable linear scarring and/or pleural thickening at the right upper lobe region . Advanced emphysema.
== END 2023-10-15 12:38 | disposition home or self-care (01) ==
LOC: ANHIMG 12:37
PROVIDERS: PCP Internal Medicine Infectious Disease; Visit Provider Physician Assistant Medical
DX: C34.91 Malignant neoplasm of unspecified part of right bronchus or lung (principal); J43.9 Emphysema, unspecified
CPT/HCPCS: 71250

== ENCOUNTER 2024-02-02 10:31 | Outpatient (CLI) | payer MEDICARE, MEDICAID, SELFPAY ==
--- NOTE | 2024-02-11 13:28 | P.PCNPFT_ITS ---
PFT Procedure Performed PFT Procedure Performed Spirometry with Pre/Post Bronchodilator Plethysmography (Lung Vol) Diffusing Cap (DLCO) Flow Vol Loop PFT Interpretation DOS: 02/02/2024 REQUESTING: Dr. Darshan Ballesteros REASON FOR TESTING: COPD Results are reliable and reproducible. SPIROMETRY: FEV1 is 0.58 L, 30% predicted, extremely reduced. FVC is 2.53 L, 105% predicted, normal. The FEV1/FVC ratio is 23%, extremely reduced consistent with airflow obstruction. After bronchodilator, FEV1 increased 2%, 0.59L, 31% predicted. There was no change in the FVC after bronchodilator. LUNG VOLUMES: Total lung capacity is 8.23 L, 204%, extremely high, consistent with severe hyperinflation. Residual volume is 5.71 L, 361%, consistent with severe air trapping. RV/TLC is 69%, consistent with severe air trapping. Airway resistance is extremely increased. DIFFUSION: DLCO is 7.3,40% predicted, extremely reduced. DLCO/VA is 2.07, 57% predicted, moderately reduced. FLOW VOLUME LOOP: There is extreme coving of the expiratory limb consistent with airflow obstruction. IMPRESSION: This study shows an extremely severe obstructive ventilatory impairment with severe hyperinflation and severe air trapping with a severe diffusion impairment. There is no response to bronchodilator. No hyperinfla tion, worsening air trapping, mild improvement in diffusion. Compared to a prior study on 07/20/2023, the FEV1 was 0.50 L, now is similar, 0.58 L. FVC is higher, now 2.53 L compared to 1.88 L. Severe airflow obstruction is still present. Total lung capacity was 5.52 L, 120%, now TLC is 8.23 L, 204%, consistent with severe hyperinflation which is new. RV was 3.47 L, 175%, now RV is 5.71 L, 361%, worsening severe air trapping. Diffusion was similar, DLCO was 5.0, 26%, now 7.3 which is 40%, on the border between severe and moderately abnormal. DLCO/VA is 2.07, 57%, better, was 1.8 which was 40%. Disha Eldridge MD
== END 2024-02-02 10:32 | disposition home or self-care (01) ==
LOC: CHSCARD 10:32
PROVIDERS: PCP Internal Medicine Infectious Disease
DX: J44.9 Chronic obstructive pulmonary disease, unspecified (principal)
CPT/HCPCS: 94060; 94726; 94729

== ENCOUNTER 2024-02-15 14:06 | Outpatient (CLI) | payer MEDICARE, MEDICAID, SELFPAY ==
--- NOTE | ~2024-02-15 | MM_ITS ---
EXAMINATION: MM screening [facility] BI w arianna HISTORY: Screening mammogram TECHNIQUE: Craniocaudal and mediolateral oblique 3-D tomosynthesis images were obtained and synthetic 2-D images were generated. CAD analysis was submitted and interpreted. COMPARISON: 06/24/2022, 12/11/2020, 09/01/2019 BREAST PARENCHYMAL COMPOSITION:Not Dense. There are scattered areas of fibroglandular density. FINDINGS: No suspicious mass, calcification, or architectural distortion are identified in either ozzie ast to suggest malignancy. There has been no suspicious interval change. IMPRESSION: No mammographic evidence of malignancy. Recommend routine screening mammography in one year. BI-RADS Category 1: Negative Reviewed, dictated and finalized at location .
== END 2024-02-15 14:07 | disposition home or self-care (01) ==
LOC: ANHIMG 14:07
PROVIDERS: PCP Internal Medicine Infectious Disease; Visit Provider Internal Medicine Infectious Disease
DX: Z12.31 Encounter for screening mammogram for malignant neoplasm of breast (principal)
CPT/HCPCS: 77063; 77067

== ENCOUNTER 2024-04-15 10:39 | Outpatient (CLI) | payer MEDICARE, MEDICAID, SELFPAY ==
--- NOTE | ~2024-04-15 | CT_ITS ---
CT Scan of the Chest without Contrast: Clinical Indication: Bronchogenic carcinoma Technique: Contiguous sections were acquired throughout the chest without intravenous contrast. Dose reduction technique was used on this scan by utilizing automated exposure control and iterative recon struction technique. The dose-length product (DLP) was 239.01 mGy-cm. COMPARISON: 10/15/2023 Findings: There is no evidence of any significant mediastinal, hilar or axillary lymphadenopathy. The mediastin al soft tissues appear normal. There is no evidence of pleural or pericardial effusion. Severe emphysema present. Peripheral pleural thickening/consolidation the right upper lobe with adjac ent scarring is stable from prior exam, likely representing post therapy change/treated disease. Stab le calcified right lung granuloma. Images through the upper abdomen reveal no abnormalities. Impression: Stable probable posttreatment changes at the right upper lobe peripherally. Severe nausea. Reviewed, dictated and finalized at [facility]. Impression: Stable probable posttreatment changes at the right upper lobe peripherally. Severe nausea.
== END 2024-04-15 10:40 | disposition home or self-care (01) ==
PROVIDERS: PCP Internal Medicine Infectious Disease; Visit Provider Radiology Radiation Oncology
DX: C34.91 Malignant neoplasm of unspecified part of right bronchus or lung (principal); R11.0 Nausea; J43.9 Emphysema, unspecified; J84.10 Pulmonary fibrosis, unspecified
CPT/HCPCS: 71250

== ENCOUNTER 2024-09-22 08:53 | Outpatient (CLI) | payer MEDICARE, MEDICAID, SELFPAY ==
--- NOTE | ~2024-09-22 | DEXA_ITS ---
Bone Density Report Name: JUDITH COLORADO Age: 69 Sex: Female Ethnicity: White Date of : 1955 Indication: postmenopausal; screening for osteoporosis; height loss; cancer; hysterectomy; Referring Provider: KRISTIAN, EDI Study: Bone densitometry was performed. Exam Date: September 22, 2024 Accession number: [id number] Bone Density: Region BMD T-score Z-score Classification AP Spine(L1-L4) 0.835 -1.9 0.1 Osteopenia Femoral Neck (Left) 0.619 -2.1 -0.4 Osteopenia Total Hip (Left) 0.683 -2.1 -0.7 Osteopenia Femoral Neck (Right) 0.619 -2.1 -0.4 Osteopenia Total Hip (Right) 0.713 -1.9 -0.5 Osteopenia Total Hip Mean 0.698 -2.0 -0.6 Osteopenia World Health Organization criteria for BMD impression classify patients as: Normal (T-score at or above -1.0), Osteopenia (T-score between -1.0 and -2.5), or Osteoporosis (T-score at or below -2.5). 10-year Fracture Risk(1): Major Osteoporotic Fracture 12% Hip Fracture 2.0% Reported Risk Factors: [place] (), Neck BMD=0.619, BMI=28.2 (1) FRAX(R) Version 3.08. Fracture probability calculated for an untreated patient. Fracture probability may be lower if the patient has received treatment. Clinical Information Provided by Patient: Has used the following medications: Vitamin D Has the following medical conditions: Cancer, Hysterectomy Patient maximum height was 62 Menopause Age: 36 Drinks caffeinated beverages Onset of menses at age 13 Number of children 2 Impression: The patient has low bone mass, based on the Left Total Hip T-score. The patient has an estimated ten-year risk of hip fracture of 2% and an estimated ten-year risk of major fracture of 12%, based on the WHO FRAX algorithm. Discussion: BONE DENSITY IS LOW AT ONE OR MORE SKELETAL SITES. This patient's lowest T-score is low at one or more skeletal sites. It meets the World Health Organization's (WHO) criteria for ?low bone mass? (T-score between -1.0 and -2.5). The patient's 10-year risk of fracture as calculated by FRAX is less than the threshold where pharmacological therapy is recommended by the National Osteoporosis Foundation (NOF). However, all treatment decisions require clinical judgment and consideration of individual patient factors, including patient preferences, comorbidities, previous drug use, risk factors not captured in the FRAX model (e.g., frailty, falls, vitamin D deficiency, increased bone turnover, interval significant decline in bone density) and possible under or overestimation of fracture risk by FRAX. The patient should follow a healthful lifestyle (good nutrition with adequate calcium and vitamin D, and appropriate weight-bearing exercise). Follow-Up: Consider repeating this study in 2 to 3 years to reassess this patient's status, or sooner if there is some new clinical indication. Reported by: XIN on 09/22/2024 9:21:00 AM. Reviewed, dictated and finalized at location [facility] PATRICIA
--- OUTSIDE RECORDS SUMMARY | 2024-09-22 09:03 | XMS_ITS | Encounter Summary ---
Author Organization [facility] Facility Care Team Providers Care Box Coverer Hand Name Role Phone Darshan Ballesteros MD Primary Care Provider Abdiaziz Fuentes DO Unavailable [phone] Walter Rowan MD Unavailable [phone] Cholo Aguilar MD Unavailable Cholo Aguilar MD Unavailable Walter Rowan MD Unavailable [phone] Encounter Details Date Type Department Care Team (Latest Contact Info) Description 06/20/2015 Orders Only [facility] CLINCONV ProviderDayan MD [address] [place] [address] Social History Tobacco Use Types Packs/Day Years Used Date Smoking Tobacco: Never Assessed Comments Unknown Sex and Gender Information Value Date Recorded Sex Assigned at Not on file Legal 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 us Historical Provider [facility] CARDIAC SERVICES PROCE DURES Final Result * CARDIOLOGY REPORT (01/08/2016 12:00 AM CDT) Anatomical Region Laterality Modality Other Narrative 01/08/2016 12:00 AM CDT Ordered by an unspecified provider. us Historical Provider CV CARDIAC SERVICES PROCE DURES Final Result documented in this encounter Visit Diagnoses Not on filedocumented in this encounter Care Teams Box Coverer Hand Relationship Specialty Start Date End Date Darshan Ballesteros MD [address] [address] PCP - General Internal Medicine 11/12/18 Abdiaziz Fuentes DO [address] [phone] Medical Oncologist/Sheet Sorter Hematology and Oncology 10/15/20 Walter Rowan MD [facility] [phone] Radiation Oncologist Radiation Oncology 04/10/21 Cholo Aguilar MD [address] [address] Ice Cream Truck Driver Pulmonary Disease 07/15/21 Cholo Aguilar MD [address] [place] [address] Surgeon Pulmonary Disease 04/21/23 Walter Rowan MD [address] [address] Radiation Oncologist Radiation Oncology 04/01/24 documented as of this encounter
--- OUTSIDE RECORDS SUMMARY | 2024-09-22 09:03 | XMS_ITS | Encounter Summary ---
Author Organization [facility] Facility Care Team Providers Care Feed Mill Manager Name Role Phone Darshan Ballesteros MD Primary Care Provider Abdiaziz Fuentes DO Unavailable [phone] Walter Rowan MD Unavailable [phone] Cholo Aguilar MD Unavailable Cholo Aguilar MD Unavailable Walter Rowan MD Unavailable [phone] Encounter Details Date Type Department Care Team (Latest Contact Info) Description 01/28/2018 Orders Only [facility] CLINCONV ProviderDayan MD [address] [place] [address] Social History Tobacco Use Types Packs/Day Years Used Date Smoking Tobacco: Never Assessed Comments Unknown Sex and Gender Information Value Date Recorded Sex Assigned at Not on file 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 Historical Provider Final Res ult documented in this encounter Visit Diagnoses Not on filedocumented in this encounter Care Teams Feed Mill Manager Relationship Specialty Start Date End Date Darshan Ballesteros MD [address] [facility] [address] [place] [address] PCP - General Internal Medicine 11/12/18 Abdiaziz Fuentes DO [address] [place] [address] Medical Oncologist/Eye Technician Hematology and Oncology 10/15/20 Walter Rowan MD [address] [place] [phone] Radiation Oncologist Radiation Oncology 04/10/21 Cholo Aguilar MD [address] [place] [address] Development Officer Pulmonary Disease 07/15/21 Cholo Aguilar MD [address] [place] [address] [phone] Surgeon Pulmonary Disease 04/21/23 Walter Rowan MD [address] [place] [phone] Radiation Oncologist Radiation Oncology 04/01/24 documented as of this encounter
--- OUTSIDE RECORDS SUMMARY | 2024-09-22 09:03 | XMS_ITS | Encounter Summary ---
Author Organization [facility] Facility Care Team Providers Care Jewelry Store Manager Name Role Phone Darshan Ballesteros MD Primary Care Provider Abdiaziz Fuentes DO Unavailable [phone] Walter Rowan MD Unavailable [phone] Cholo Aguilar MD Unavailable Cholo Aguilar MD Unavailable Walter Rowan MD Unavailable [phone] Encounter Details Date Type Department Care Team (Latest Contact Info) Description 10/10/2015 Orders Only [facility] CLINCONV ProviderDayan MD [address] [place] [address] Social History Tobacco Use Types Packs/Day Years Used Date Smoking Tobacco: Never Assessed Comments Unknown Sex and Gender Information Value Date Recorded Sex Assigned at Not on file 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 Historical Provider MD [facility] CARDIAC SERVICES PROCE [place] Final Result documented in this encounter Visit Diagnoses Not on filedocumented in this encounter Care Teams Jewelry Store Manager Relationship Specialty Start Date End Date Darshan Ballesteros MD [address] [facility] [address] [place] [address] PCP - General Internal Medicine 11/12/18 Abdiaziz Fuentes DO [facility] [address] Medical Oncologist/Machine Oiler Hematology and Oncology 10/15/20 Walter Rowan MD [address] [place] [address] [phone] Radiation Oncologist Radiation Oncology 04/10/21 Cholo Aguilar MD [address] [place] [address] [phone] Conference Coordinator Pulmonary Disease 07/15/21 Cholo Aguilar MD [address] [place] [address] [phone] Surgeon Pulmonary Disease 04/21/23 Walter Rowan MD [address] [place] [address] [phone] Radiation Oncologist Radiation Oncology 04/01/24 documented as of this encounter
--- OUTSIDE RECORDS SUMMARY | 2024-09-22 09:03 | XMS_ITS | CONTINUITY OF CARE DOCUMENT ---
Author Name yared vail Address Unknown Organization [facility] Address [address] [place] [address] Phone [phone] Care Team Providers Care Sexologist Name Role Phone Sam BARRIGA, Andrew Unavailable [phone] EDI TOWNSEND MD Unavailable [phone] EDI TOWNSEND MD Unavailable PROBLEMS Condition Status Date Provider Notes Tricuspid regurgitation, mild active Andrew Vargas MD Diastolic dysfunction active Andrew Vargas MD Emphysema;see lung md active Andrew Vargas MD Tobacco use, quit active Andrew Vargas MD Screening active Andrew Vargas MD HTN essential active Andrew Vargas MD VITAMIN D DEFICIENCY active Andrew Banuelos Hyperlipidemia;with low lpa and high crp active Andrew Vargas MD FAMILY HISTORY OF HEART DISEASE active Andrew Vargas MD family hx CAD;NEG DUPLEX per pt active Andrew Vargas MD Abnormal electrocardiogram completed 04/06 - Andrew Vargas MD [place], adult active Andrew Varags MD Lung cancer active Andrew Vargas MD had rad rxl 2020 Pulmonary hypertension active Andrew Vargas MD Overweight active Andrew Vargas MD ENCOUNTERS Date Type Provider Location Encounter Diag nosis - In-person encounter Office Visit Andrew Vargas MD [place] [facility] ScreeningHyperlipidemia;with low lpa and high crpPulmonary hypertensionOverweight - In-person encounter Office Visit Andrew Vargas MD [facility] [place], adultLung cancer - In-person encounter Office Visit Andrew Vargas MD [place] [facility] VITAMIN D DEFICIENCYAbnormal electrocardiogram - In-person encounter Office Visit Andrew Vargas MD [place] [facility] Emphysema;see lung mdTobacco use, quitScreeningHTN essentialVITAMIN D DEFICIENCYHyperlipidemia;wit h low lpa and high crpFAMILY HISTORY OF HEART DISEASECAD;NEG DUPLEX per pt VITAL SIGNS Date Observation Value Provider Body Mass Index (Ratio) 29.49 kg/m2 Lisseth Vargas MD blood pressure, diastolic 76 mm[Hg] Jamel Vargas MD blood pressure, systolic 128 mm[Hg] Michael Vargas MD respiratory rate E&M 12 /min Andrew Vargas MD pulse rate 62 /min Andrew Banuelos oxygen saturation, oximetry 91 % Andrew Vargas MD weight E&M 151 [lb_av] Andrew Banuelos Body Mass Index (Ratio) 31.05 kg/m2 Lisseth Vargas MD blood pressure, diastolic 70 mm[Hg] Li nkLogic blood pressure, systolic 131 mm[Hg] Yasmine kLogic blood pressure, cuff size regular Ja rret blood pressure, diastolic 70 mm[Hg] Ja rret blood pressure, systolic 131 mm[Hg] Jar ret pulse rate 65 /min Shade respiratory rate E&M 12 /min Shade Inhaled O2 2 L/min Shade y oxygen saturation, oximetry 86 % Shade weight E&M 159 [lb_av] Shade da y height E&M 60 [in_i] Shade Goddard y Body Mass Index (Ratio) 30.07 kg/m2 Lisseth Vargas MD respiratory rate E&M 16 /min Tonsha Pepe blood pressure, diastolic 72 mm[Hg] To nsha Pepe blood pressure, systolic 132 mm[Hg] Ton sha Pepe blood pressure, resting Yes Tons [facility] Pepe oxygen saturation, oximetry 94 % Tonsha Pepe pulse rate 59 /min Tonsha Pepe weight E&M 154 [lb_av] Tons Pepe height E&M 60 [in_i] [facility] Pepe temperature site temporal Tammy Tank sley temperature E&M 97.5 [degF] Tammy Tanks ivory Body Mass Index (Ratio) 26.75 kg/m2 Lisseth Vargas MD Inhaled O2 2 L/min Kim sadler blood pressure, cuff size regular Cy raheem Carbajal blood pressure, diastolic 70 mm[Hg] Cy raheem Carbajal blood pressure, systolic 134 mm[Hg] Petra Carbajal oxygen saturation, oximetry 87 % Kim Carbajal pulse rate 74 /min Kim Odombel l respiratory rate E&M 16 /min Kim Carbajal height E&M 60 [in_i] Kim Leibel l weight E&M 137 [lb_av] Kim Leibel l ALLERGIES Allergy Name Onset Date Reaction Criticality Status Tiotropium [place] Low Criticality a ctive Oxycodone-Acetaminophen Low Critical ity active Oxycodone Low Criticality active Meperidine Low Criticality active Fluticasone Propion-Salmeterol Low C riticality active PERCOCET Low Criticality active DEMEROL Low Criticality active RESULTS Date Observation Value Provider Reference Range Interpretation Location 1 prothrombin time (patient) 10.0 s [facility] 9.1-12.0 1 international normalized ratio (INR) 0.9 [facility] 0.8-1.2 1 lipoprotein, beta, serum, point, quantitative, calculated 47 mg/dL [facility] 0-99 1 very low density lipoproteins 21 mg/dL [facility] 5-40 1 HDL cholesterol, serum 72 mg/dL [facility] >39 1 triglyceride, serum, random 103 mg/dL [facility] 0-149 1 cholesterol, serum 140 mg/dL [facility] [id number]/07/3 1 calcium, serum 9.9 mg/dL [facility] 8.7-10.3 1 carbon dioxide, venous blood 25 mmol/L [facility] 20-29 1 chloride, serum 105 mmol/L [facility] 96-106 1 potassium, serum 4.4 mmol/L [facility] 3.5-5.2 1 sodium, serum 145 mmol/L [facility] 134-144 High 1 urea nitrogen/creatinin e ratio, serum 17 [facility] 12-28 1 eGFR if 111 mL/min/{1. 73_m2} [facility] >59 1 eGFR if not 96 mL/min/{1. 73_m2} [facility] >59 1 creatinine, serum 0.64 mg/dL [facility] 0.57-1.00 1 urea nitrogen, blood 11 mg/dL [facility] 8-27 1 blood glucose, random 90 mg/dL [facility] 65-99 1 basophil count, absolute 0.1 x10E3/uL [facility] 0.0-0.2 1 Eosinophil Absolute Count 0.2 X10E3/UL [facility] 0.0-0.4 1 monocyte count, blood, automated 0.6 X10E3/UL [facility] 0.1-0.9 1 lymphocyte count, blood, automated 2.1 X10E3/UL [facility] 0.7-3.1 1 Absolute Neutrophils 5.6 X10E3/UL [facility] 1.4-7.0 1 basophils as percent of blood leukocytes 1 % [facility] Not Estab. 1 eosinophils as percent of blood leukocytes 2 % [facility] Not Estab. 1 monocytes as percent of blood leukocytes 7 % [facility] Not Estab. 1 lymphocytes as percent of blood leukocytes 25 % [facility] Not Estab. 1 neutrophils as percent of blood leukocytes 65 % [facility] Not Estab. 1 platelet count 292 X10E3/UL [facility] 066-338 3567/07/3 1 red blood cell distribution width 14.0 % [facility] 12.3-15.4 1 mean corpuscular hemoglobin concentration, RBC 32.8 G/DL [facility] 31.5-35.7 1 mean corpuscular hemoglobin, RBC 29.2 pg [facility] 26.6-33.0 1 mean corpuscular volume, RBC 89 fL [facility] 79-97 1 hematocrit, blood 42.1 % [facility] 34.0-46.6 1 hemoglobin, blood 13.8 g/dL [facility] 11.1-15.9 1 erythrocyte (RBC) count 4.72 X10E6/UL [facility] 3.77-5.28 1 leukocyte count, blood 8.6 X10E3/UL [facility] 3.4-10.8 HISTORY OF MEDICATION USE Medication Status Instructions Dates Provider Indications Com merlene Freire 10 mg tablet active TAKE 1 TABLET BY MOUTH EVERY DAY Jinny Stone 0.25 mg/0.5 mL pen injector active 1 pen injector subcutaneously once a week Andrew Vargas MD ranolazine 500 mg tablet extended release 12 hr active TAKE 1 TABLET BY MOUTH TWICE DAILY Jeannette Khan Jardiance 10 mg tablet completed Take 1 tablet by mouth once a day - Andrew Vargas MD ranolazine 500 mg tablet extended release 12 hr completed TAKE 1 TABLET BY MOUTH TWICE A DAY - Jinny Castlelanorossy ranolazine 500 mg tablet extended release 12 hr completed TAKE 1 TABLET BY MOUTH TWICE DAILY - Urvashi RIOSP Atrovent HFA 17 mcg/actuation HFA aerosol inhaler active Inhale 2 puff by mouth four times a day Urvashimichael Garciaglhenry [employer] #12.9, 30 days supply, Prescribed by FEDERICO HUNTER, Filled 02/13/2020 POLYMYXIN B-TRIMETHOPRIM SOLUTION completed drop in each eye three times daily - Andrew Vargas MD KETOROLAC TROMETHAMINE 0.4 % OPHTHALMIC SOLUTION completed 1 drop in each eye four times a day - Andrew Vargas MD PREDNISOLONE ACETATE 1 % OPHTHALMIC SUSPENSION completed Take 1 drop in each eye three times a day - Andrew Vargas MD Symbicort 160-4.5 mcg/actuation HFA aerosol inhaler active Inhale 2 puff twice a day Kim Carbajal SPIRIVA HANDIHALER 18 MCG INHALATION CAPSULE completed inhale 1 capsule by mouth daily - Anisha Pepe ranolazine 500 mg tablet extended release 12 hr completed take 1 tab twice daily - Kim Carbajal nitroglycerin 0.4 mg tablet, sublingual active Take as directed Kim Carbajal PROAIR RESPICLICK 108 (90 BASE) MCG/ACT INH AEPB completed Inhale 2 puffs every 4 hrs as needed - Anisha Pepe ipratropium-alb uterol 0.5 mg-3 mg(2.5 mg base)/3 mL solution for nebulization active Take as directed Kim Carbajal furosemide 20 mg tablet active Take 1 tablet by mouth once a day as needed Andrew Vargas MD FLUTICASONE PROPIONATE 50 MCG/ACT NASAL SUSPENSION completed take as directed - Andrew Vargas MD VITAMIN D2 TABLET completed take 1 tab weekly - Andrew Vargas MD cetirizine 10 mg tablet completed Take 1 tablet once a day - [facility] metoprolol tartrate 25 mg tablet active Take 1 tablet by mouth twice a day Kim Carbajal atorvastatin 80 mg tablet active Take 1 tablet once a day Kim Carbajal aspirin 81 mg tablet,delayed release (DR/EC) active Take 1 tablet by mouth once a day [facility] amlodipine 10 mg tablet active Take tablet by mouth once a day Kim Carbajal albuterol sulfate 0.63 mg/3 mL solution for nebulization active Take as directed Kim Carbajal SOCIAL HISTORY Date Observation Value Provider drug use no Andrew Banuelos alcohol use no Andrew Banuelos smoking, year quit 2018 Andrew chinchilla MD smoking history, tot al pack/day 4 PPD Andrew Vargas MD cigarette use yes Andrew Vargas MD smoking status Former smoker Andrew aguilar MD drug use no Urvashi Ventimig nenita [facility] alcohol use no Urvashi Ventimig nenita [facility] smoking status Former smoker Urvashi Venti miglia [facility] social history E&M S moking History: Pancho richard is a former smoker. Andrew Vargas MD social history reviewed E&M revi ewed - no changes required Andrew Vargas MD smoking, year quit 2019 Tonsha Mo ss smoking history, tot al pack/day 4 PPD Tonsha Pepe cigarette use yes Tonsha Pepe smoking status Former smoker Tonsha Pepe quit smoking, stage quit Andrew pa MD social history E&M S moking History: Pancho richard is a former smoker. Andrew Vargas MD social history reviewed E&M radha garcia - no changes required Andrew Vargas MD smoking, year quit 2019 Kim bell smoking history, tot al pack/day 4 PPD Kim Carbajal cigarette use yes Kimshant Odomisrael la smoking status Former smoker Kim Lei arzate FUNCTIONAL STATUS Date Observation Value Provider HRA, CV Assess/Plan, Angina (inactive) Management Plan continue current therapy Andrew Vargas MD HRA, CV Assess/Plan, Angina (inactive) Management Plan continue current therapy Kimmie Voss HRA, CV Assess/Plan, Angina (inactive) Management Plan continue current therapy Andrew Vargas MD FAMILY HISTORY Family Member Condition Aunt Family History of Co ronary Artery Disease: Father Family History of Hy pertension: Father Family History of Di abetes: INSURANCE PROVIDERS Payer name Policy type / Coverage type [place] [employer] party ID [employer] MEDICARE GOLD ADVANTAGE HMO Medicare [id number] [facility] Medicaid 9 [id number] ADVANCE DIRECTIVES Name Date DISCUSSED - NO DECISION MADE TREATMENT PLAN Date Name Performer [id number],C,nml pro Kay Vargas MD [id number],S, Urvashimichael Mercer mignenita [facility] [id number],S,will do f/u e cho Urvashimichael Christy [facility] [id number],S,r emains on statin therapy. LIpids at goal. Last LDL was 61 H er updated medication list for this problem includes: Atorvastatin 80 Mg Tablet (Atorvastatin) ..... Take 1 tablet once a day Urvashi Ventimiglia [facility] [id number],C,O2 dependent Urvashi Ventimiglia [facility] [id number],S,B P well controlled 131/70. C ontinue present medication regimen H er updated medication list for this problem includes: Metoprolol Tartrate 25 Mg Tablet (Metoprolol tartrate) ..... Take 1 tablet by mouth twice a day Amlodipine 10 Mg Tablet (Amlodipine) ..... Take tablet by mouth once a day Aspirin 81 Mg Tablet,delayed Release (dr/ec) (Aspirin) ..... Take 1 tablet by mouth once a day Furosemide 20 Mg Tablet (Furosemide) ..... Take 1 tablet by mouth once a day as needed Urvashi Christy [facility] [id number],S,H as history of HFref. She has chronic SOB unclear if related to her COPD or also diastolic HF. We will update some labs. Recent labs from PCP show no anemia. Will also update echo as last echo was in 2019. 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 as well as her pre-diabetes O rders: E KG (CPT-65523) 9 9214 MOD 30-39min (CPT-48771) C omplete Echo (CPT-81200) P ROBNP, N TERMINAL (47471) P ROBNP, N TERMINAL (72373) M icroalb/Creatinine Urine, Random (6517) L ipoprotein (a) (849169) C RP, high sensitivity (47468) C T, Coronary Calcium Score (CPT-72202) Urvashi Westley [facility] Cardiology Andrew Vargas MD Cardiology Andrew Vargas MD Cardiology: O 2 dependent Andrew Vargas MD Cardiology:32 Andrew Vargas MD Cardiology:pro 50 Andrew Vargas MD Cardiology:neg uacr n eg vd and egfre n ml tsh, nml b12 and folate n eg a1c and tsh Andrew Vargas MD Cardiology Andrew Vargas MD Cardiology:neg in fu Andrew esqueda MD Cardiology: n eg nuc m ild cad 15 Andrew Vargas MD Cardiology Andrew Vargas MD :nml pro Andrew Vargas MD Cardiology Urvashi Naima figueroa [facility] Cardiology:will do f/u echo Darrell Mason [facility] Cardiology:remains o n statin therapy. LIpids at goal. Last LDL was 61 H er updated medication list for this problem includes: Atorvastatin 80 Mg Tablet (Atorvastatin) ..... Take 1 tablet once a day Urvashi Christy [facility] Cardiology:O2 dependent Urvashi serrano [facility] Cardiology:BP well c ontrolled 131/70. C ontinue present medication regimen H er updated medication list for this problem includes: Metoprolol Tartrate 25 Mg Tablet (Metoprolol tartrate) ..... Take 1 tablet by mouth twice a day Amlodipine 10 Mg Tablet (Amlodipine) ..... Take tablet by mouth once a day Aspirin 81 Mg Tablet,delayed Release (dr/ec) (Aspirin) ..... Take 1 tablet by mouth once a day Furosemide 20 Mg Tablet (Furosemide) ..... Take 1 tablet by mouth once a day as needed Urvashimichael Christy [facility] Cardiology:Has histo ry of HFref. She has chronic SOB unclear if related to her COPD or also diastolic HF. We will update some labs. Recent labs from PCP show no anemia. Will also update echo as last echo was in 2019. 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 The patient is either a current smoker or has quit within the past 15 years. T he patient is recommended to have low dose CT scan for lung cancer screening. Has been counseled regarding the importance of tobacco cessation and abstinence. Shared decision making during this office visit included discussion of the benefits and harms of screening, possible future recommendations of follow-up diagnostic testing, and total amount of radiation exposure. The patient was recommended to have annual low dose CT scan for lung cancer screening and is willing to undergo diagnosis and treatment. Andrew Vargas MD Cardiology: H er updated medication list for this problem includes: Atorvastatin Calcium 80 Mg Oral Tablet (Atorvastatin calcium) ..... Take 1 tab daily C HOL: 140 (03/16/2019) HDL: 72 (03/16/2019) Andrew Vargas MD Cardiology: H er updated medication list for this problem includes: Furosemide 20 Mg Oral Tablet (Furosemide) ..... Take 1 tab daily as needed Metoprolol Tartrate 25 Mg Oral Tablet (Metoprolol tartrate) ..... Take 1 tab twice daily Aspirin Adult Low Dose 81 Mg Oral Tablet Delayed Release (Aspirin) ..... Take daily Amlodipine Besylate 10 Mg Oral Tablet (Amlodipine besylate) ..... Take daily BP today: 132/72 P rior BP: 134/70 (03/15/2019) Labs Reviewed: C reat: 0.64 (03/16/2019) C hol: 140 (03/16/2019) HDL: 72 (03/16/2019) Andrew Vargas MD Cardiology:neg nuc h ad caht per pt and tells me was mild Andrew Vargas MD Cardiology Andrew Vargas MD Cardiology:neg vd n ml tsh, nml b12 and folate Andrew Vargas MD Cardiology:nml pro Andrew Vargas MD Cardiology New Patient Andrew chinchilla MD Cardiology New Patie nt : H er updated medication list for this problem includes: Atorvastatin Calcium 80 Mg Oral Tablet (Atorvastatin calcium) ..... Take 1 tab daily Andrew Vargas MD Cardiology New Patient Andrew chinchilla MD Cardiology New Patie nt : H er updated medication list for this problem includes: Furosemide 20 Mg Oral Tablet (Furosemide) ..... Take 1 tab daily as needed Metoprolol Tartrate 25 Mg Oral Tablet (Metoprolol tartrate) ..... Take 1 tab twice daily Aspirin Adult Low Dose 81 Mg Oral Tablet Delayed Release (Aspirin) ..... Take daily Amlodipine Besylate 10 Mg Oral Tablet (Amlodipine besylate) ..... Take daily BP today: 134/70 Andrew Vargas MD Cardiology New Patient Andrew chinchilla MD Cardiology New Patient :nml tsh, nml b12 and folate Andrew Vargas MD Cardiology New Patient :miguelangel joseph Andrew Vargas MD Date Name RPM (remote patient monitoring) Vitamin D, 25-Hydrox y CT, Coronary Calcium Score Complete Echo CT, Coronary Calcium Score CRP, high sensitivit y Lipoprotein (a) Microalb/Creatinine Urine, Random PROBNP, N TERMINAL Complete Echo Low Dose Lung CT CT, Coronary Calcium Score PROTHROMBIN TIME WIT H INR LIPID PANEL CBC (INCLUDES DIFF/P LT) BASIC METABOLIC PANE L W/EGFR LIPID PANEL Complete Echo Stress Regadenoson CT, Coronary Calcium Score HISTORY OF PROCEDURES Procedure Date Procedure Name Provider Procedure Notes S tatus Complex e/m visit add on Andrew Vargas MD completed EKG Andrew Vargas MD complete d Counseling LDCT Adnrew Vargas MD com pleted EKG Andrew Vargas MD complete d Regadenoson, 4 units Andrew Vargas MD completed Cardiolite, 2 units Andrew Vargas MD completed SPECT Images Andrew Vargas MD comple caroline Stress EKG Andrew Vargas MD complete d ALEXIS Vargas MD complete d
--- OUTSIDE RECORDS SUMMARY | 2024-09-22 09:04 | XMS_ITS | Encounter Summary ---
Author Organization [facility] Care Team Providers Care Costume Seamstress Name Role Phone Darshan Ballesteros MD Primary Care Provider Abdiaziz Fuentes DO Unavailable [phone] Walter Rowan MD Unavailable [phone] Cholo Aguilar MD Unavailable Cholo Aguilar MD Unavailable Walter Rowan MD Unavailable [phone] Encounter Details Date Type Department Care Team (Latest Contact Info) Description 06/06/2015 Orders Only [facility] CLINCONV ProviderDayan MD [address] [place] [id number] Social History Tobacco Use Types Packs/Day Years Used Date Smoking Tobacco: Never Assessed Comments Unknown Sex and Gender Information Value Date Recorded Sex Assigned at Not on file Legal 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 Gender Identity Not on file Sexual Orientation [...] on filedocumented in this encounter Care Teams Costume Seamstress Relationship Specialty Start Date End Date Darshan Ballesteros MD [address] [facility] [address] [place] [address] PCP - General Internal Medicine 11/12/18 Abdiaziz Fuentes DO [facility] [address] Medical Oncologist/Construction Field Engineer Hematology and Oncology 10/15/20 Walter Rowan MD [address] [place] [address] [phone] Radiation Oncologist Radiation Oncology 04/10/21 Cholo Aguilar MD [address] [place] [address] [phone] Radiology Physician Pulmonary Disease 07/15/21 Cholo Aguilar MD [address] [place] [address] [phone] Surgeon Pulmonary Disease 04/21/23 Walter Rowan MD [address] [place] [address] [phone] Radiation Oncologist Radiation Oncology 04/01/24 documented as of this encounter
--- OUTSIDE RECORDS SUMMARY | 2024-09-22 09:04 | XMS_ITS ---
Author Organization [facility] Address [address] [place] [address] Care Team Providers Care [place] Instructor Name Role Phone Darshan Ballesteros MD Primary Care Provider Abdiaziz Fuentes DO Unavailable [phone] Cholo Aguilar MD Unavailable Cholo Aguilar MD Unavailable Walter Rowan MD Unavailable [phone] Active Problems Problem Noted Date Diagnosed Date 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 Cancer Staging:Clinical stage from 03/20/2020:Stage IA2(cT1b, cN0, cM0) - Signed by Abdiaziz Fuentes DO on 03/21/2020 Left shoulder tendinitis 03/21/2020 Current Oncology Plans No current plan information found. Past Plans No past plan information found. Radiation Treatments * Plan Last Treated On Elapsed Days Fractions Treated Prescribed Fraction Dose Prescribed Total Dose SBRT R LUNG 04/13/2020 4 3 1,800 cGy 5,400 cG y Reference Point Last Treated On Elapsed Days Session Dose Total Dose SBRT R LUNG 04/13/2020 4 1,800 cGy 5,400 cGy
--- OUTSIDE RECORDS SUMMARY | 2024-09-22 09:04 | XMS_ITS | Encounter Summary ---
Author Organization [facility] Facility Care Team Providers Care Waiver Analyst Name Role Phone Darshan Ballesteros MD Primary Care Provider Abdiaziz Fuentes DO Unavailable [phone] Walter Rowan MD Unavailable [phone] Cholo Aguilar MD Unavailable Cholo Aguilar MD Unavailable Walter Rowan MD Unavailable [phone] Encounter Details Date Type Department Care Team (Latest Contact Info) Description 06/08/2015 Orders Only [facility] CLINCONV ProviderDayan MD [address] [place] [address] Social History Tobacco Use Types Packs/Day Years Used Date Smoking Tobacco: Never Assessed Comments Unknown Sex and Gender Information Value Date Recorded Sex Assigned at Not on file 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 Gender Identity Not on file Sexual Orientation [...] on filedocumented in this encounter Care Teams Waiver Analyst Relationship Specialty Start Date End Date Darshan Ballesteros MD [address] [facility] 1 [place] [address] PCP - General Internal Medicine 11/12/18 Abdiaziz Fuentes DO [facility] [address] Medical Oncologist/Women'S Ministry Director Hematology and Oncology 10/15/20 Walter Rowan MD [address] [place] [address] [phone] Radiation Oncologist Radiation Oncology 04/10/21 Cholo Aguilar MD [address] [place] [address] [id number] Air Traffic Systems Technician Pulmonary Disease 07/15/21 Cholo Aguilar MD [address] [place] [address] [phone] Surgeon Pulmonary Disease 04/21/23 Walter Rowan MD [address] [place] [address] [id number] Radiation Oncologist Radiation Oncology 04/01/24 documented as of this encounter
--- OUTSIDE RECORDS SUMMARY | 2024-09-22 09:04 | XMS_ITS | Clinical Summary ---
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 Gender Identity Not on file Sexual Orientation Not on file Plan of Treatment Health Maintenance Due Date Last Done Comments DEXA Bone Density 1955 Hepatitis C Virus (HCV) Screening 1955 Colonoscopy 2001 Colorectal Cancer Screening 2001 Cologuard 2006 Immunochemical Fecal Occult Blood 2006 Mammogram 2006 Pneumococcal Immunization (50+ years) (1 of 1 - PCV) 2006 Zoster Immunization (1 of 2) 2006 Influenza Immunization (#1) 2024 SARS-COV-2 Immunization ( season) 2024 08/21/2021, 11/06/2020, 10/16/2020, Additional history exists Respiratory Syncytial Virus (RSV) Immunization (Adult) (1 - 1-dose 75+ series) 2031 DTaP/Tdap/Td Immunization Discontinued 08/16/2003 TdaP Immunization Completed 08/16/2003 Hepatitis B Immunization Aged Out No longer eligible based on patient's age to complete this topic Meningococcal Immunization (ACWY) Aged Out No longer eligible based on patient's age to complete this topic Rotavirus Immunization Aged Out No lo nger eligible based on patient's age to complete this topic
--- OUTSIDE RECORDS SUMMARY | 2024-09-22 09:04 | XMS_ITS | Clinical Summary ---
Author Organization [facility] Address [address] [place] [address] Care Team Providers Care Electrical Tester Name Role Phone Darshan Ballesteros MD Primary Care Provider Abdiaziz Fuentes DO Unavailable [phone] Cholo Aguilar MD Unavailable hColo Aguilar MD Unavailable Walter Rowan MD Unavailable [phone] Allergies Active Allergy Reactions Criticality Noted Date Comments Fluticasone Propion-Salmeterol Other (See comments) High 07/08/2019 Meperidine Hives Medium 03/07/2019 hives Oxycodone Hives Medium 06/20/2015 Hives Oxycodone-Acetaminophen Hives Medium 03/07/2019 hives Tiotropium [place] Shortness of breath High 03/20/20 20 Medications ranolazine ER (RANEXA) 500 mg 12 hr tablet Take 1 tablet (500 mg total) by mouth 2 (two) times a day 84 tablet 9 Active budesonide-form oteroL (SYMBICORT) 160-4.5 mcg/actuation inhaler Inhale 2 puffs 2 (two) times a day Rinse mouth with water after use. Do not swallow. Active ipratropium (ATROVENT HFA) 17 mcg/actuation inhaler Inhale 2 puffs 4 (four) times a day Active atorvastatin (LIPITOR) 80 mg tablet Take 1 tablet (80 mg total) by mouth daily Active metoprolol tartrate (LOPRESSOR) 25 mg immediate release tablet Take 1 tablet (25 mg total) by mouth 2 (two) times a day Active furosemide (LASIX) 20 mg tablet Take 1 tablet (20 mg total) by mouth 2 (two) times a day Active amLODIPine (NORVASC) 10 mg tablet Take 1 tablet (10 mg total) by mouth daily Active nitroglycerin (NITROSTAT) 0.[address] 0.4 mg under the tongue every 5 (five) minutes as needed for chest pain Active sodium chloride-aloe vera ([place] Saline) gel Active cyclobenzaprine (FLEXERIL) 10 mg tablet daily as needed Acti ve aspirin 81 mg enteric coated tablet TK 1 T PO D 0 Active meloxicam (MOBIC) 15 mg tablet Take 1 tablet (15 mg total) by mouth daily Active albuterol HFA (PROVENTIL HFA,VENTOLIN HFA,PROAIR HFA) 90 mcg/actuation inhaler albuterol sulfate HFA 90 mcg/actuation aerosol inhaler Active arformoteroL (BROVANA) 15 mcg/2 mL nebulizer solution 2 mL (15 mcg total) every 12 hours Active budesonide (PULMICORT) 0.5 mg/2 mL nebulizer solution 2 mL every 12 hours Active ipratropium-alb uteroL (DUO-NEB) 0.5-2.5 mg/3 mL nebulizer solution ipratropium 0.5 mg-albuterol 3 mg (2.5 mg base)/3 mL nebulization soln Active predniSONE (DELTASONE) 20 mg tablet Active azithromycin (ZITHROMAX) 250 mg tablet azithromycin 250 mg tablet TK 2 TS PO ON DAY 1, THEN TK 1 T PO D FOR 4 DAYS Active Wixela Inhub 250-50 mcg/dose diskus inhaler Inhale 1 puff 2 (two) times a day 4 Active Jardiance 10 mg tablet Take 1 tablet (10 mg total) by mouth daily 3 Active Active Problems Problem Noted Date Diagnosed Date 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 Cancer Staging:Clinical stage from 03/20/2020:Stage IA2(cT1b, cN0, cM0) - Signed by Abdiaziz Fuentes DO on 03/21/2020 Left shoulder tendinitis 03/21/2020 Immunizations Name Administration Dates Next Due Tdap 08/16/2003 Surgical History Surgery Date Site/Laterality Comments HERNIA REPAIR CARPAL TUNNEL RELEASE PARTIAL HYSTERECTOMY HYSTERECTOMY Medical History Medical History Date Comments Depression Emphysema, unspecified (HCC) Bronchitis Hypercholesteremia Hypertension Peptic ulceration CAD (coronary artery disease) Family History Medical History Relation Name Comments No Known Problems Father Aneurysm Mother Relation Name Status Comments Father Mother Social History Tobacco Use Types Packs/Day Years Used Date Smoking Tobacco: Former Cigarettes 0 45 1 [phone] - 2019 Smokeless Tobacco: Never Tobacco Cessation:Counseling Given: Not Answered Alcohol Use Standard Drinks/Week Comments Not Currently 0 (1 standard drink = 0.6 oz pur e alcohol) Personal Safety Answer Date Recorded Getting School Help Needed Not on file 08/19 Comments Unknown Sex and Gender Information Value Date Recorded Sex Assigned at Not on file 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 Gender Identity Not on file Sexual Orientation Not on file 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 on file Not on file Obstetrics History Last Filed Vital Signs Vital Sign Reading Time Taken Comments Blood Pressure 133/68 04/20/2024 3:36 PM CDT Pulse 71 04/20/2024 3:36 PM CDT Temperature 36.7 C (98.1 F) 03/20/2020 4:18 PM CDT Respiratory Rate 16 03/20/2020 4:18 PM CDT Oxygen Saturation 97% 04/20/2024 3:3 6 PM CDT 2L portable o2 Inhaled Oxygen Concentration - - Weight 72.6 kg (160 lb) 04/21/2023 11:1 7 AM CDT Height 152.4 cm (5') 03/20/2020 4:18 PM CDT Body Mass Index 31.25 03/20/2020 4:18 PM CDT Plan of Treatment Health Maintenance Due Date Last Done Comments Colon Cancer Screening-Colonoscopy 1956 Depression Screening 1956 Fall Risk Assessment 1956 Hepatitis C Screening 1956 Osteoporosis Screening-Bone Density Scan 1956 Pneumococcal vaccine 65+ (1 of 2 - PCV) 1962 Hepatitis B Screening 1974 Zoster Vaccine (1 of 2) 2006 DTaP/Tdap/Td Vaccine (2 - Td or Tdap) 08/16/2013 08/16/2003 Well Visit 65+ 2021 Breast Cancer Screening-Mammogram 06/24/2023 06/24/2022, 12/12/2020, 09/01/2019, Additional history exists Covid-19 Vaccine ( - 2023-2 5 season) 2024 08/21/2021, 10/16/2020 Influenza Vaccine (#1) 2024 Insurance [employer] MEDICARE GOLD IDPA AETNA MEDICARE GOLD Care Teams Electrical Tester Relationship Specialty Start Date End Date Darshan Ballesteros MD [address] [place] [address] [address] [place] [address] PCP - General Internal Medicine 11/12/18 Abdiaziz Fuentes DO [address] [place] [id number] Medical Oncologist/Test Engine Operator Hematology and Oncology 10/15/20 Cholo Aguilar MD [address] [facility] [address] [place] [address] Geothermal Operating Engineer Pulmonary Disease 07/15/21 Cholo Aguilar MD [address] [place] [id number] Surgeon Pulmonary Disease 04/21/23 Walter Rowan MD [address] [address] Radiation Oncologist Radiation Oncology 04/01/24
--- OUTSIDE RECORDS SUMMARY | 2024-09-22 09:04 | XMS_ITS | Referral Summary ---
Author Organization [facility] Address [address] [place] [address] Care Team Providers Care Podiatric Assistant Name Role Phone Darshan Ballesteros MD Primary Care Provider Abdiaziz Fuentes DO Unavailable [phone] Cholo Aguilar MD Unavailable Cholo Aguilar MD Unavailable Walter Rowan MD Unavailable [phone] Allergies Active Allergy Reactions Criticality Noted Date Comments Fluticasone Propion-Salmeterol Other (See comments) High 07/08/2019 Meperidine Hives Medium 03/07/2019 hives Oxycodone Hives Medium 06/20/2015 Hives Oxycodone-Acetaminophen Hives Medium 03/07/2019 hives Tiotropium [place] Shortness of breath High 03/20/20 20 Medications [...] for chest pain Active sodium chloride-aloe vera ([place] Saline) gel Active cyclobenzaprine (FLEXERIL) 10 mg [...] Name Administration Dates Next Due Tdap 08/16/2003 Social History Tobacco Use Types Packs/Day Years [...] on file Legal Sex Female 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 REGIONAL PLANNER Gender Identity Not on file Sexual Orientation Not on file 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 on file Not on file Last Filed Vital Signs Vital Sign Reading [...] 03/20/2020 4:18 PM CDT Plan of Treatment Not on file Insurance IDPA IDPA [employer] MEDICARE GOLD IDPA AETNA MEDICARE GOLD Care Teams Podiatric Assistant Relationship Specialty Start Date End Date Darshan Ballesteros MD [address] [place] [id number] PCP - General Internal Medicine 11/12/18 Abdiaziz Fuentes DO [address] [place] [id number] Medical Oncologist/Meat Molder Hematology and Oncology 10/15/20 Cholo Aguilar MD [address] [place] [id number] Marketing Pr Intern Pulmonary Disease 07/15/21 Cholo Aguilar MD [address] [place] [id number] Surgeon Pulmonary Disease 04/21/23 Walter Rowan MD [address] [place] [id number] Radiation Oncologist Radiation Oncology 04/01/24
--- OUTSIDE RECORDS SUMMARY | 2024-09-22 09:04 | XMS_ITS | Data Portability ---
Author Organization [facility] Address [address] [facility] [place] [address] Care Team Providers Care Coil Winder Strap Name Role Phone DARSHAN TOWNSEND Primary Care Provider [phone] BASSAM PARRA Beautician Apprentice JAMIE SNELL Ship Laborer Unavailable Assessment No assessment recorded. Plan of Treatment Reminders Order Date Submit Date Provider Last Modified By Organization Details Last Modified Time Details Appointments ANY 2024 11:00A M Darshan Townsend MD Not available Not available Not available ANY 15 2024 11:30A M Jamie Snell MD Not available Not available Not available Lab CMP, serum or plasma 2023 024 SHELDON Patel, [address], [address], [place], [address], 04/28/2024 08:33:34 urinal ysis macro (dipst ick) panel, urine 2023 024 SHELDON Patel, [address], [place], [address], 04/28/2024 08:33:35 lipid panel, serum 2023 024 SHELDON Patel, 2022 [address], [place], [address], 04/28/2024 08:33:33 CBC 2023 024 SHELDON Patel, 2022 [address], [address], [place], [address], 04/28/2024 08:33:36 vitami n D, 25-hyd leatha, total, serum 2023 024 LUDOWICI [facility], [address], [place], [address], 04/28/2024 08:33:37 Referral dermat ologis t referr ольга velazquez rash of both LE 2023 024 lamont Moore MD ([facility], Dermatology), [address], [place], [address], 04/27/2024 15:13:14 Procedures None record ed. Surgeries None record ed. Imaging MAMMO, screen ing, digita l, bilate ral 2023 024 [facility] ([facility] Call Scheduling), [address] [place], [address], 02/15/2024 20:59:09 PFT, comple te 2023 024 [facility] (Rad), [address] [place], [address], 01/29/2024 13:54:39 DEXA [address] (Imaging), [address] [facility] [address], [place], [address], 09/08/2024 10:01:06 Medication Orders Wixela Inhub 250 mcg-50 mcg/do se powder for inhala tion 2023 024 [id number], [address] [facility], [place], [place], [id number], 03/30/2024 12:30:33 Symbic ort 160 mcg-4. 5 mcg/ac tuatio n HFA aeroso l inhale r 2023 024 hlucasfoster [facility] #[id number], [address] [facility], [place], [place], [id number], 10/30/2023 19:18:58 Augmen tin 875 mg-125 mg tablet 2023 08//2 024 SHELDON [facility] #[id number], [address], [place], [place], [id number], 04/06/2024 12:34:49 Patient TargetsNo targets recorded. Patient Instructions Encounter Date Encounter Id Patient Instructions Last Modified By Organization Details Last Modified Time 10/27/2023 [id number] mammogram: about this test oajao Not available 10/27/2023 12:43:18 Restart Symbicor t Stop Wixela COVID vaccine MMG Follow up in 6 months and PRN oajao Not available 10/27/2023 12:57:17 03/30/2024 [id number] rash: care instructions oajao Not available 03/30/2024 12:38:32 Labs DEXA Augmentin Follow up, in 6 months and PRN oajao Not available 03/30/2024 12:44:38 Reason for Referral Compo Caster Referral for E ruption Pigmented rash of both LE Pigmented rash of both LE Referring Physician: Darshan Townsend, Internal Medicine, Encounter Date: 03/30/2024 Results Created Date Observation Date Name Description Value Unit Range Abnormal Flag Note LastModifiedBy Organization Detail LastModifiedTime 04/27/2004/28/2024 LIPID PANEL cholesterol, total 161 mg/dL 100-19 9 Not Available [facility] ([facility]) [address] [facility], [place], [address], 04/28/2024 08:33:33 04/27/2004/28/2024 LIPID PANEL triglyceride s 63 mg/dL 0-149 Not Available [facility] ([facility]) [address] [facility], [place], [address], 04/28/2024 08:33:33 04/27/20 24 04/28/2024 LIPID PANEL HDL cholesterol 78 mg/dL >39 Not Available [facility] ([facility]) [address] [facility] [place] [place], [address], 04/28/2024 08:33:33 04/27/20 24 04/28/2024 LIPID PANEL VLDL cholesterol mick 12 mg/dL 5-40 Not Available [facility] ([facility]) [address] [facility] [place] [place], [address], 04/28/2024 08:33:33 04/27/20 24 04/28/2024 LIPID PANEL LDL chol calc ([facility]) 71 mg/dL 0-99 Not Available [facility] ([facility]) [address] [facility] [place] [place], [address], 04/28/2024 08:33:33 04/27/20 24 04/28/2024 COMP. METAB OLIC PANEL (14) glucose 103 mg/dL 70-99 above high normal Not Available [facility] ([facility]) [address] [facility] [place] [place], [address], 04/28/2024 08:33:34 04/27/20 24 04/28/2024 COMP. METAB OLIC PANEL (14) BUN 11 mg/dL 8-27 Not Available [facility] ([facility]) [address] [facility] [place] [place], [address], 04/28/2024 08:33:34 04/27/20 24 04/28/2024 COMP. METAB OLIC PANEL (14) creatinine 0.68 mg/dL 0.57-1 .00 Not Available [facility] ([facility]) [address] [facility] [place] [place], [address], 04/28/2024 08:33:34 04/27/20 24 04/28/2024 COMP. METAB OLIC PANEL (14) eGFR 95 mL/mi n/1.7 3 >59 Not Available [facility] ([facility]) [address] [facility] [place] [place], [address], 04/28/2024 08:33:34 04/27/20 24 04/28/2024 COMP. METAB OLIC PANEL (14) BUN/creatini ne ratio 16 12-28 Not Available [facility] ([facility]) [address] [facility] [place] [place], [address], 04/28/2024 08:33:34 04/27/20 24 04/28/2024 COMP. METAB OLIC PANEL (14) sodium 140 mmol/ L 134-14 4 Not Available [facility] ([facility]) [address] [facility], [place], [address], 04/28/2024 08:33:34 04/27/20 24 04/28/2024 COMP. METAB OLIC PANEL (14) potassium 4.6 mmol/ L 3.5-5. 2 Not Available [facility] ([facility]) [address] [facility] [place], [address], 04/28/2024 08:33:34 04/27/20 24 04/28/2024 COMP. METAB OLIC PANEL (14) chloride 101 mmol/ L 96-106 Not Available [facility] ([facility]) [address] [facility] [place] [place], [address], 04/28/2024 08:33:34 04/27/20 24 04/28/2024 COMP. METAB OLIC PANEL (14) carbon dioxide, total 24 mmol/ L 20-29 Not Available [facility] ([facility]) [address] [facility], [place], [address], 04/28/2024 08:33:34 04/27/20 24 04/28/2024 COMP. METAB OLIC PANEL (14) calcium 10.0 mg/dL 8.7-10 .3 Not Available [facility] ([facility]) [address] [facility] [place], [address], 04/28/2024 08:33:34 04/27/20 24 04/28/2024 COMP. METAB OLIC PANEL (14) protein, total 7.2 g/dL 6.0-8. 5 Not Available [facility] ([facility]) [address] [facility] [place], [address], 04/28/2024 08:33:34 04/27/20 24 04/28/2024 COMP. METAB OLIC PANEL (14) albumin 4.8 g/dL 3.9-4. 9 Not Available [facility] ([facility]) [address] [facility] [place] [place], [address], 04/28/2024 08:33:34 04/27/20 24 04/28/2024 COMP. METAB OLIC PANEL (14) globulin, total 2.4 g/dL 1.5-4. 5 Not Available [facility] ([facility]) [address] [place], [address], 04/28/2024 08:33:34 04/27/20 24 04/28/2024 COMP. METAB OLIC PANEL (14) bilirubin, total 0.3 mg/dL 0.0-1. 2 Not Available [facility] ([facility]) [address] [facility] [place] [place], [address], 04/28/2024 08:33:34 04/27/20 24 04/28/2024 COMP. METAB OLIC PANEL (14) alkaline phosphatase 170 IU/L 44-121 above high normal Not Available [facility] ([facility]) [address] [facility] [place], [address], 04/28/2024 08:33:34 04/27/20 24 04/28/2024 COMP. METAB OLIC PANEL (14) AST (SGOT) 31 IU/L 0-40 Not Available [facility] ([facility]) [address] [facility] [place] [place], [address], 04/28/2024 08:33:34 04/27/20 24 04/28/2024 COMP. METAB OLIC PANEL (14) ALT (SGPT) 27 IU/L 0-32 Not Available [facility] ([facility]) [address] [facility], [place], [address], 04/28/2024 08:33:34 04/27/20 24 04/28/2024 URINA LYSIS , ROUTI NE specific gravity 1.011 1.005- 1.030 Not Available [facility] ([facility]) [address] [facility], [place], [address], 04/28/2024 08:33:35 04/27/20 24 04/28/2024 URINA LYSIS , ROUTI NE pH 6.5 5.0-7. 5 Not Available [facility] ([facility]) [address] [facility], [place], [address], 04/28/2024 08:33:35 04/27/20 24 04/28/2024 URINA LYSIS , ROUTI NE urine-color YELLOW yellow Not Available [facility] ([facility]) [address] [facility], [place], [address], 04/28/2024 08:33:35 04/27/20 24 04/28/2024 URINA LYSIS , ROUTI NE appearance CLEAR clear Not Available [facility] ([facility]) [address] [facility], [place], [address], 04/28/2024 08:33:35 04/27/20 24 04/28/2024 URINA LYSIS , ROUTI NE WBC esterase NEGATI VE negati ve Not Available [facility] ([facility]) [address] [place], [address], 04/28/2024 08:33:35 04/27/20 24 04/28/2024 URINA LYSIS , ROUTI NE protein NEGATI VE negati ve/tra ce Not Available [facility] ([facility]) [address] [place], [address], 04/28/2024 08:33:35 04/27/20 24 04/28/2024 URINA LYSIS , ROUTI NE glucose 2+ negati ve abnormal Not Available [facility] ([facility]) [address] [place], [address], 04/28/2024 08:33:35 04/27/20 24 04/28/2024 URINA LYSIS , ROUTI NE ketones NEGATI VE negati ve Not Available [facility] ([facility]) [address] [place], [address], 04/28/2024 08:33:35 04/27/20 24 04/28/2024 URINA LYSIS , ROUTI NE occult blood NEGATI VE negati ve Not Available [facility] ([facility]) [address] [place], [address], 04/28/2024 08:33:35 04/27/20 24 04/28/2024 URINA LYSIS , ROUTI NE bilirubin NEGATI VE negati ve Not Available [facility] ([facility]) [address] [place], [address], 04/28/2024 08:33:35 04/27/20 24 04/28/2024 URINA LYSIS , ROUTI NE urobilinogen ,semi-qn 0.2 mg/dL 0.2-1. 0 Not Available [facility] ([facility]) [address] [place], [address], 04/28/2024 08:33:35 04/27/20 24 04/28/2024 URINA LYSIS , ROUTI NE nitrite, urine NEGATI VE negati ve Not Available [facility] ([facility]) [address] [place], [address], 04/28/2024 08:33:35 04/27/20 24 04/28/2024 URINA LYSIS , ROUTI NE microscopic examination COMMEN T Micro scopi c not indic ated and not perfo rmed. Not Available [facility] ([facility]) [address] [place], [address], 04/28/2024 08:33:35 04/27/20 24 04/27/2024 CBC, PLATE LET, NO DIFFE RENTI AL WBC 8.8 x10e3 /uL 3.4-10 .8 Not Available [facility] ([facility]) [address] [facility], [place], [address], 04/28/2024 08:33:36 04/27/20 24 04/27/2024 CBC, PLATE LET, NO DIFFE RENTI AL RBC 5.00 x10e6 /uL 3.77-5 .28 Not Available [facility] ([facility]) [address] [facility], [place], [address], 04/28/2024 08:33:36 04/27/20 24 04/27/2024 CBC, PLATE LET, NO DIFFE RENTI AL hemoglobin 14.4 g/dL 11.1-1 5.9 Not Available [facility] ([facility]) [address] [facility], [place], [address], 04/28/2024 08:33:36 04/27/20 24 04/27/2024 CBC, PLATE LET, NO DIFFE RENTI AL hematocrit 44.6 % 34.0-4 6.6 Not Available [facility] ([facility]) [address] [facility], [place], [address], 04/28/2024 08:33:36 04/27/20 24 04/27/2024 CBC, PLATE LET, NO DIFFE RENTI AL MCV 89 fL 79-97 Not Available [facility] ([facility]) [address] [place], [address], 04/28/2024 08:33:36 04/27/20 24 04/27/2024 CBC, PLATE LET, NO DIFFE RENTI AL MCH 28.8 pg 26.6-3 3.0 Not Available [facility] ([facility]) [address] [place], [address], 04/28/2024 08:33:36 04/27/20 24 04/27/2024 CBC, PLATE LET, NO DIFFE RENTI AL MCHC 32.3 g/dL 31.5-3 5.7 Not Available [facility] ([facility]) [address] [facility], [place], [address], 04/28/2024 08:33:36 04/27/20 24 04/27/2024 CBC, PLATE LET, NO DIFFE RENTI AL RDW 14.0 % 11.7-1 5.4 Not Available [facility] ([facility]) [address] [facility], [place], [address], 04/28/2024 08:33:36 04/27/20 24 04/27/2024 CBC, PLATE LET, NO DIFFE RENTI AL platelets 289 x10e3 /uL 150-45 0 Not Available [facility] ([facility]) [address] [facility], [place], [address], 04/28/2024 08:33:36 04/27/20 24 04/28/2024 VITAM IN D, 25-HY DROXY vitamin D, 25-hydroxy 13.2 NG/mL 30.0-1 00.0 below low normal Vitam in D defic iency has been defin ed by the Insti tute of Medic ine and an Endoc rine Socie ty pract ice guide line as a level of serum 25-OH vitam in D less than 20 ng/mL (1,2) . The Endoc rine Socie ty went on to furth er defin e vitam in D insuf ficie ncy as a level betwe en 21 and 29 ng/mL (2). 1. IOM (Inst itute of Medic ine). 2009. Dieta ry refer ence charlotte es for calci um and D. Wilfred quevedo [place]: The Natio nal [facility] Press . 2. Vandana hanks MF, Binkl ey [place], Bisch off-F errar i RODRIGUEZ, et al. Evalu ation , treat ment, and preve ntion of vitam in D defic iency : an Endoc rine Socie ty clini mick pract ice guide line. JCEM. 2010; 96(7) :1911 -30. Not Available [facility] ([facility]) [address] [facility], [place], [address], 04/28/2024 08:33:37 10/07/19 24 07/20/2023 jose metry , [facility] hodil ation No observ ation record ed. arabella Not Available 12/20 17:15:47 10/16/19 24 10/15/2023 LDCT, chest , for lung cance r scree sophia No observ ation record ed. [address] [place] [address], [address], 10/27/2023 12:57:26 02/11/20 24 02/02/2024 PFT, compl ete No observ ation record ed. [facility] (Resp Services) [address] [place] [address] [address] [facility], [place], [address], 04/06/2024 10:26:29 02/15/20 24 02/15/2024 MAMMO , kristinae sophia, digit al, bilat eral No observ ation record ed. [address] [place] [address], [address], 03/30/2024 12:26:38 04/06/20 24 01/31/2024 jose metry , [facility] hodil ation No observ ation record ed. [facility] ([facility]) [address] [place], [address], 04/26/2024 16:22:50 Result Notes None recorded. Problems Name Problem SNOMED Code Status Onset Date Resolution Date Notes Provider Name and Address Organization Details Recorded Time Colonoscopy declined 8613492020335 00 Active 2016 Darshan Townsend MD Attn: Robert g,[address] [facility], [place], [address], [place] [facility] 7 11:35:45 Solitary nodule of lung 939202400 Active 2017 Darshan Townsend MD Attn: Robert louis,[address] [facility], [place], [address], [place] [facility] 8 14:03:30 Dependence on supplementa l oxygen 444371219569 Active 2018 Darshan Townsend MD Attn: Robert myers,[address] [place], [address], [place] [facility] 3 12:52:30 Memory impairment 919890944 Active 2018 Darshan Townsend MD Attn: Robert myers,[address] [place], [address], [place] [facility] 9 14:01:23 History of calculus of kidney 984225219 Active 2018 Darshan Townsend MD Attn: Robert myers,[address] [place], [address], [place] [facility] 9 14:01:24 Pneumococca l vaccination declined 681141790 Active 2018 Darshan Townsend MD Attn: Robert myers,[address] [facility], [place], [address], [place] [facility] 9 14:03:02 Influenza vaccination declined 749749215 Active 2018 Darshan Townsend MD Attn: Robert myers,[address] [place], [address], [place] [facility] 9 14:03:11 Stenosis of interverteb ral foramina 123884066646 Active 2018 Darshan Townsend MD Attn: Robert myers,[address] [place], [address], [place] [facility] 9 13:59:07 Congenital stenosis of cervical canal 63399002 Active 2018 Darshan Townsend MD Attn: Robert myers,[address] [facility], [place], [address], [place] [facility] 9 13:59:08 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 684394847 Active 2018 Darshan Townsend MD Attn: Accountivan g,[address] [facility], [place], [address], [place] [facility] 9 13:59:11 Tobacco dependence in remission 065607637 Active 2018 Darshan Townsend MD Attn: Accountivan g,[address] [facility], [place], [address], [place] [facility] 9 18:29:47 Acute exacerbatio n of chronic obstructive pulmonary disease 784791369 Active 2018 Darshan Townsend MD Attn: Robert myers,[address] [facility], [place], [address], [place] [facility] 9 14:02:44 Diastolic dysfunction 5804970 Active 2019 Darshan Townsend MD Attn: Robert myers,[address] [facility], [place], [address], [place] [facility] 0 12:11:54 Malignant tumor of lung 468376448 Active 2019 Darshan Townsend MD Attn: Robert myers,[address] [facility], [place], [address], [place] [facility] 0 12:02:41 Edema of lower extremity 933147871 Active 2021 Darshan Townsend MD Attn: Robert g,[address] [facility], [place], [address], [place] [facility] 2 13:17:26 Tobacco user 809279336 Active Darshan Townsend MD Attn: Robert myers,[address] [place], [address], [place] [facility] 5 12:03:25 Numbness 70364966 Active Darshan Townsend MD Attn: Accountin g,[address] [facility], [place], [address], [place] [facility] 4 11:14:07 Headache 22895259 Active Darshan Townsend MD Attn: Accountin g,[address] [facility], [place], [address], [place] [facility] 4 11:14:07 Pure hypercholes terolemia 870068690 Active Darshan Townsend MD Attn: Accountin g,[address] [facility], [place], [address], [place] [facility] 5 12:48:13 Chronic obstructive pulmonary disease 02796240 Active Darshan Townsend MD Attn: Accountin g,[address] [facility], [place], [address], [place] [facility] 3 12:52:26 Coronary arterioscle rosis in [place] artery 5752702919076 Active Darshan Townsend MD Attn: Accountin g,[address] [facility], [place], [address], [place] [facility] 5 13:58:29 Vitamin D deficiency 13784356 Active Darshan Townsend MD Attn: Accountin g,[address] [facility], [place], [address], [place] [facility] 5 13:58:29 Obstructive sleep apnea syndrome 07690768 Active Darshan Townsend MD Attn: Accountin g,[address] [facility], [place], [address], [place] [facility] 5 13:58:29 Pharyngitis 947720772 Active Darshan Townsend MD Attn: Accountin g,[address] [facility], [place], [address], [place] [facility] 6 13:56:35 On examination - hoarseness Active Darshan Townsend MD Attn: Accountin g,[address] [facility], [place], [address], [facility] 6 13:25:18 Notes:Numbness Problem Notes None recorded. Procedures Surgical History Date Name Laterality Status Provider Name and Address Organization Details Recorded Time Hysterectomy completed Darshan Townsend MD Attn: Accounting,[address] , [place], [address], [facility] 12/12/2015 12:32:03 Total Abdominal Hysterectomy completed Darshan Townsend MD Attn: Accounting,[address], [place], [address], [facility] 07/27/2017 11:24:19 Hernia Repair completed November Julito aguilar [facility] 07/24/2014 10:40:39 Breast Surgery completed November Vishal bob [facility] 07/24/2014 10:40:39 Dilation and Curettage completed November VIKAS Mejía [facility] 07/24/2014 10:40:39 Imaging Results Imaging Date Name Status LastModified by Organization Details LastModified Time 07/20/2023 spirometry, pre and post bronchodilation completed [facility] Information not available 12/21/2023 17:15:47 10/15/2023 LDCT, chest, for lung cancer screening completed [address], [address], 10/27/2023 12:57:26 02/02/2024 PFT, complete completed [facility] (Resp Services) [address] [place] [address], [address], 04/06/2024 10:26:29 02/15/2024 MAMMO, screening, digital, bilateral completed [address], [address], 03/30/2024 12:26:38 01/31/2024 spirometry, pre and post bronchodilation completed [facility] (Cardiopulmon[facility] y Services) [address] [place] [address], [address], 04/26/2024 16:22:50 Procedure Notes None recorded. Medical Equipment None Reported. Allergies Allergen ID Allergen Name Allergen Category Reaction Reaction Severity Criticality Documentation Date Start Date Code Code System Note Provider Name and Address Organization Details Recorded Time 982060 Wixela medicatio n other severe Not available 07/08/20192018 06447 06 RxNorm Pt. state d it felt like her tonsi ls swell ed up. Not Available Not Available Not Available 906845 Spiriva medicatio n other severe Not available 07/08/2019 94843 5 RxNorm Pt. state d it felt like her tonsi ls swell ed up. Not Available Not Available Not Available 6313 Demerol medicatio n Not available Not available Not available 07/24/2014 66165 1 RxNorm Not Available Not Available Not Available 6314 acetamino phen / oxycodone medicatio n Not available Not available Not available 07/24/2014 36798 3 RxNorm Not Available Not Available Not Available Medications Name Sig Start Date Stop Date Status Note LastModified by Organization Details LastModified Time Prescript ion - Prior Authoriza tion Request 06/04 completed Not Available Not Available Not Available cyclobenz aprine 10 mg tablet TAKE 1 TABLET BY MOUTH THREE TIMES DAILY NEEDED 06/07 completed Not Available Not Available Not Available albuterol sulfate 0.63 mg/3 mL solution for nebulizat ion Inhale 3 mL 4 times a day by inhalati on route as needed for 30 days. 04/04 completed Not Available Not Available Not Available atorvasta tin 80 mg tablet TAKE 1 TABLET BY MOUTH DAILY active Not Available Not Available No t Available prednison e 10 mg tablet 06/10 completed Not Available Not Available Not Available doxycycli ne hyclate 100 mg capsule 03/12 completed Not Available Not Available Not Available cefuroxim e axetil 250 mg tablet 06/09 completed Not Available Not Available Not Available ipratropi um 0.5 mg-albute rol 3 mg (2.5 mg base)/3 mL nebulizat ion soln USE 3 ML VIA NEBULIZE R FOUR TIMES DAILY NEEDED active Not Available Not Available No t Available cetirizin e 10 mg tablet Take 1 tablet every day by oral route for 30 days. 09/10 completed Not Available Not Available Not Available azithromy alma 250 mg tablet TK 2 TS PO ON DAY 1, THEN TK 1 T PO D FOR 4 DAYS 10/20 completed Not Available Not Available Not Available Lidocaine Viscous 2 % mucosal solution Take 5 mL every 3 hours by oral route as needed for 5 days. 06/09 completed Not Available Not Available Not Available benzonata te 200 mg capsule TAKE 1 CAPSULE BY MOUTH THREE TIMES DAILY FOR 5 DAYS NEEDED 09/26 completed Not Available Not Available Not Available meloxicam 15 mg tablet TAKE 1 TABLET BY MOUTH EVERY DAY WITH MEALS (PRN only) active Not Available Not Available No t Available prednison e 20 mg tablet TAKE 1 TABLET BY MOUTH EVERY DAY AROUND THE CLOCK FOR 7 DAYS 10/20 completed Not Available Not Available Not Available isosorbid e mononitra te ER 30 mg tablet,ex tended release 24 hr 01/25 completed Not Available Not Available Not Available prednison e 5 mg tablet TAKE 1 TABLET BY MOUTH EVERY DAY FOR 14 DAYS 10/26 completed Not Available Not Available Not Available penicilli n V potassium 500 mg tablet Take 1 tablet every 8 hours by oral route for 10 days. 12/11 completed Not Available Not Available Not Available amlodipin e 5 mg tablet Take 1 tablet every day by oral route for 30 days. 07/27 completed Not Available Not Available Not Available omeprazol e 40 mg capsule,d elayed release Take 1 capsule every day by oral route as needed for 30 days. 07/27 completed Not Available Not Available Not Available aspirin 81 mg tablet,de layed release TAKE 1 TABLET BY MOUTH DAILY 2023 active Not Available Not Available Not Avai lable ketorolac 10 mg tablet TAKE 1 TABLET BY MOUTH EVERY 6 HOURS FOR 5 DAYS NEEDED 01/30 completed Not Available Not Available Not Available bisoprolo l fumarate 5 mg tablet Take 1 tablet every day by oral route. 10/21 completed Not Available Not Available Not Available prednisol one acetate 1 % eye drops,isabelle pension 08/23 completed Not Available Not Available Not Available Lipitor 40 mg tablet Take 1 tablet every day by oral route. active Not Available Not Available No t Available amlodipin e 10 mg tablet TAKE 1 TABLET BY MOUTH DAILY active Not Available Not Available No t Available benzonata te 100 mg capsule TAKE 1 CAPSULE BY MOUTH THREE TIMES DAILY FOR 7 DAYS DIRECTED 06/07 completed Not Available Not Available Not Available doxycycli ne monohydra te 100 mg capsule 12/14 completed Not Available Not Available Not Available ropinirol e 0.5 mg tablet Take 1 tablet every day by oral route at bedtime for 30 days. 01/25 completed Not Available Not Available Not Available polymyxin B sulfate 10,000 unit-trim ethoprim 1 mg/mL eye drops 08/23 completed Not Available Not Available Not Available nitroglyc lizeth 0.4 mg sublingua l tablet DISSOLVE 1 TABLET UNDER THE TONGUE EVERY 5 MINUTES 3 TIMES NEEDED FOR CHEST PAIN active Not Available Not Available No t Available zolpidem 5 mg tablet 07/25 completed Not Available Not Available Not Available furosemid e 20 mg tablet TAKE 1 TABLET BY MOUTH EVERY DAY NEEDED 2023 active Not Available Not Available Not Avai lable ergocalci ferol (vitamin D2) 1,250 mcg (50,000 unit) capsule Take 1 capsule every week by oral route as directed for 84 days, for Low Vitamin D. 2023 active Not Available Not Available Not Avai lable levofloxa alma 500 mg tablet 1.5 tablets by mouth daily for 5 days 08/18 completed Not Available Not Available Not Available levofloxa alma 750 mg tablet TAKE 1 TABLET BY MOUTH EVERY DAY FOR 5 DAYS DIRECTED 06/07 completed Not Available Not Available Not Available methylpre dnisolone 4 mg tablets in a dose pack Take 1 package every day by oral route as directed . 06/04 completed Not Available Not Available Not Available albuterol sulfate HFA 90 mcg/actua tion aerosol inhaler Inhale 2 puffs every 4 hours by inhalati on route as needed. active Not Available Not Available No t Available fluticaso ne propionat e 50 mcg/actua tion nasal spray,isabelle pension [place] 2 sprays every day by nasal route as directed for 30 days. 09/10 completed Not Available Not Available Not Available diazepam 5 mg tablet 07/25 completed Not Available Not Available Not Available amoxicill in 875 mg-potass ium clavulana te 125 mg tablet TAKE 1 TABLET BY MOUTH EVERY 12 HOURS UNTIL ALL TAKEN 04/06 completed Not Available Not Available Not Available nicotine 7 mg/24 hr daily transderm al patch 06/10 completed Not Available Not Available Not Available azithromy amla 500 mg tablet 07/25 completed Not Available Not Available Not Available ketorolac 0.4 % eye drops 08/23 completed Not Available Not Available Not Available metoprolo l tartrate 25 mg tablet TAKE 1 TABLET BY MOUTH TWICE DAILY active Not Available Not Available No t Available Spiriva with [employer] r 18 mcg and inhalatio n capsules INHALE THE CONTENTS OF 1 CAPSULE BY MOUTH ONCE DAILY 07/27 completed Not Available Not Available Not Available Flovent HFA 220 mcg/actua tion aerosol inhaler 01/25 completed Not Available Not Available Not Available Atrovent HFA 17 mcg/actua tion aerosol inhaler INHALE 2 PUFFS BY MOUTH FOUR TIMES DAILY 2023 active Not Available Not Available Not Avai lable Calcium 500 09/10 completed Not Available Not Available Not Available Spiriva with [employer] r 07/25 completed Not Available Not Available Not Available ranolazin e ER 500 mg tablet,ex tended release,1 2 hr TAKE 1 TABLET BY MOUTH TWICE DAILY active Not Available Not Available No t Available Symbicort 160 mcg-4.5 mcg/actua tion HFA aerosol inhaler INHALE 2 PUFFS BY MOUTH TWICE DAILY DIRECTED active Not Available Not Available No t Available Symbicort 80 mcg-4.5 mcg/actua tion HFA aerosol inhaler 07/25 completed Not Available Not Available Not Available Combivent Respimat 20 mcg-100 mcg/actua tion solution for inhalatio n INHALE 1 PUFF BY MOUTH FOUR TIMES DAILY 06/04 completed Not Available Not Available Not Available Breo Ellipta 100 mcg-25 mcg/dose powder for inhalatio n INHALE 1 PUFF BY MOUTH EVERY DAY DIRECTED 10/26 completed Not Available Not Available Not Available Jardiance 10 mg tablet TAKE 1 TABLET BY MOUTH EVERY DAY active Not Available Not Available No t Available Spiriva Respimat 2.5 mcg/actua tion solution for inhalatio n Inhale 2 puffs every day by inhalati on route as directed . 07/21 completed Not Available Not Available Not Available Incruse Ellipta 62.5 mcg/actua tion powder for inhalatio n Inhale 1 puff every day by inhalati on route for 90 days. 07/21 completed Not Available Not Available Not Available Daliresp 250 mcg tablet TAKE 1 TABLET BY MOUTH EVERY DAY 11/01 completed My insuranc e won't approve that Not Available Not Available Not Available Keegan Inhub 250 mcg-50 mcg/dose powder for inhalatio n INHALE 1 PUFF BY MOUTH TWICE DAILY FOR 30 DAYS 03/30 completed It was leaving powder in the back of my throat Not Available Not Available Not Available Wegovy 0.25 mg/0.5 mL subcutane ous pen injector active Not Available Not Available Not Available Vitals Date Recorded Body height Body mass index (BMI) Body weight Body temperature Respiratory rate Oxygen saturation Oxygen saturation in Arterial blood by Pulse oximetry Inhaled oxygen flow rate Heart rate Systolic blood pressure Diastolic blood pressure Provider Name and Address Organization Details Last Updated DateTime 4 152.4 cm 29.9 kg/m2 16070.6 3 g 98.1 [degF] 18 /min 96 % 96 % 2 L/min 60 /min 120 mm[Hg] 58 mm[Hg] Olga Anglin LPN [place] - [facility] 4 12:31:50 Date Recorded Body height Body mass index (BMI) Body weight Oxygen saturation Oxygen saturation in Arterial blood by Pulse oximetry Inhaled oxygen flow rate Heart rate Respiratory rate Systolic blood pressure Diastolic blood pressure Provider Name and Address Organization Details Last Updated DateTime 4 152.4 cm 30.1 kg/m2 41237.2 2 g 97 % 97 % 2 L/min 68 /min 18 /min 120 mm[Hg] 76 mm[Hg] Hue Trevino [place] - [facility] 4 12:19:33 Date Recorded Body height Pain severity - 0-10 verbal numeric rating [Score] - Reported Body temperature Body mass index (BMI) Body weight Respiratory rate Oxygen saturation Oxygen saturation in Arterial blood by Pulse oximetry Inhaled oxygen flow rate Heart rate Systolic blood pressure Diastolic blood pressure Provider Name and Address Organization Details Last Updated DateTime 4 152.4 cm 0 97.7 [degF] 29.3 kg/m2 50145.8 6 g 18 /min 96 % 96 % 2 L/min 64 /min 132 mm[Hg] 62 mm[Hg] Olga Anglin LPN [place] - [facility] 4 14:22:03 Date Recorded Body height Body mass index (BMI) Body weight Heart rate Respiratory rate Oxygen saturation Oxygen saturation in Arterial blood by Pulse oximetry Inhaled oxygen flow rate Systolic blood pressure Diastolic blood pressure Provider Name and Address Organization Details Last Updated DateTime 4 152.4 cm 29.3 kg/m2 31406.8 6 g 72 /min 16 /min 95 % 95 % 2 L/min 114 mm[Hg] 70 mm[Hg] Hue Trevino [place] - [facility] 4 12:17:48 Date Recorded Body height Body mass index (BMI) Body weight Body temperature Pain severity - 0-10 verbal numeric rating [Score] - Reported Heart rate Oxygen saturation Oxygen saturation in Arterial blood by Pulse oximetry Inhaled oxygen flow rate Respiratory rate Systolic blood pressure Diastolic blood pressure Provider Name and Address Organization Details Last Updated DateTime 4 152.4 cm 29.5 kg/m2 87900.4 5 g 97 [degF] 0 66 /min 96 % 96 % 2 L/min 18 /min 126 mm[Hg] 6 mm[Hg] Olga Anglin LPN [place] - [facility] 4 12:36:31 Social History Question Answer Notes LastModified by Organizat ion Details LastModified Time Tobacco Smoking Status Former Smoker Hue Trevino MA [place], [place] - [facility] 12/14/2018 12:11:47 Do You Have An Advance Directive? No Information not available 12/27/2021 What Is Your Level Of Alcohol Consumption? Occasional Information not available 09/10/2018 Are You Blind Or Do You Have Difficulty Seeing? No Information not available 11/01/2020 What Is Your Level Of Caffeine Consumption? Moderate Information not available 09/10/2018 In The 14 Days Before Symptom Onset, Have You Had Close Contact With A Laboratory-confir med COVID-19 While That Case Was Ill? No Information not available 06/27/2022 In The 14 Days Before Symptom Onset, Have You Had Close Contact With A Person Who Is Under Investigation For COVID-19 While That Person Was Ill? No Information not available 06/27/2022 Have You Been To An Area Known To Be High Risk For COVID-19? No Information not available 06/27/2022 Are You Currently Employed? No Information not available 11/01/2020 Are You Deaf Or Do You Have Serious Difficulty Hearing? No Information not available 11/01/2020 What Type Of Diet Are You Following? REGULAR Information not available 09/10/2018 Do You Or Have You Ever Used E-cigarettes Or Vape? Never Used Electronic Cigarettes Information not available 06/10/2019 Are There Any Guns Present In Your Home? No Information not available 11/01/2020 Hard Of Hearing Or Deaf In One Or Both Ears? No Information not available 09/10/2018 Legally Blind In One Or Both Eyes? No Information no t available 09/10/2018 Do You Have A Medical Power Of Director Sports? No Information not available 12/27/2021 What Was The Date Of Your Most Recent Tobacco Screening? 04/06/2024 Information not available 04/06/2024 What Is Your Current Pack Years? 30ormorepackye ars Information not available 01/16/2021 Do You Have Smoke And Carbon Monoxide Detectors In Your Home? Yes Information not available 11/01/2020 At What Age Did You Start Smoking Tobacco? 16 Information not available 01/16/2021 Do You Or Have You Ever Used Smokeless Tobacco? Never Used Smokeless Tobacco Information not available 06/10/2019 How Much Tobacco Do You Smoke? No Information not available 12/14/2018 General Stress Level High Information not available 09/10/2018 Do You Use Any Illicit Or Recreational Drugs? No Information not available 01/16/2021 Do You Use Sunscreen Routinely? No Information not available 11/01/2020 Has Tobacco Cessation Counseling Been Provided? Yes Information not available 10/21/2018 On What Date Was Tobacco Cessation Counseling Provided? 01/16/2021 Information not available 01/16/2021 How Many Years Have You Smoked Tobacco? 40 asavala Information not available 07/24/2014 Do You Or Have You Ever Used Any Other Forms Of Tobacco Or Nicotine? No Information not available 01/16/2021 Sex: Unknown Functional Status Question Answer Note LastModified by Organization D etails LastModified Time Are you able to care for yourself? Yes Information n ot available 11/01/2020 What is your exercise level? None Information not available 09/10/2018 Mental Status None recorded. Family History Relationship Description Onset Age of this Age Resolved Age Notes LastModified by Organization Details LastModified Time Father Alcohol abuse asavala Not available 2013 10:40:39 Father Hypertensive disorder asavala Not available 2013 10:40:39 Sister Disorder of thyroid gland asavala Not available 2013 10:40:39 Medical History Condition Response Coronary Artery Disease Y Other N Atrial Fibrillation N High Blood Pressure N Kidney or Bladder Problems N Thyroid Problems N GI Problems N Depression N COPD Y Blood Clots N Skin Problems N Anemia N Heart Attack ([place]) N Anxiety Disorder N Diabetes N Muscle, Joint, or Bone Problems N Seizures/Epilepsy N Acid Reflux (GERD) Y Cancer N Stroke N Asthma N Allergies N High Cholesterol Y Hepatitis N Liver Disease N Headaches N Heart Failure N Osteoporosis N Gynecological HistoryNo gynecological history recorded. Obstetrics History GPAL:G 0 P 0 0 0 0 Immunizations Vaccine Type Date Status Note Provider Nam e and Address Organization Details Recorded Time SARS-COV-2 (COVID-19) vaccine, UNSPECIFIED 1 completed Hue Trevino [place], [place] - [facility] 11/01/2020 10:08:42 SARS-COV-2 (COVID-19) vaccine, UNSPECIFIED 1 completed Darshan Townsend MD Attn: Accounting,[address] [place], [address], [place] - [facility] 01/16/2021 15:50:58 COVID-19, mRNA, LNP-S, PF, 30 mcg/0.3 mL dose 2 completed Darshan Townsend MD Attn: Accounting[address] [place], [address], [place] - [facility] 04/22/2022 12:47:38 COVID-19, mRNA, LNP-S, PF, 30 mcg/0.3 mL dose 1 completed Darshan Townsend MD Attn: Accounting[address] [place], [address], [facility] - [facility] 04/22/2022 12:47:38 Pneumococcal conjugate PCV20, polysaccharide [id number] conjugate, adjuvant, PF 2 completed Darshan Townsend MD Attn: Accounting[address] [place], [address], [facility] - [facility] 10/20/2022 12:37:37 Tdap 3 completed Darshan Townsend MD Attn: Accounting[address] [place], [address], [facility] - [facility] 07/25/2015 12:31:55 Past Encounters Encounter ID Performer Location Encounter Start Date Encounter Closed Date Diagnosis/Indication Diagnosis SNOMED-CT Code Diagnosis ICD10 Code Diagnosis Note [id number] Philip (Adult Med) [address] [place] [address] 07/24/2014 10:17:08 07/24/2014 11:20:24 Numbness [id number] Intermitte nt right sided facial numbness with a negative CT/Carotid duplex exam. Will need an evaluation by the neurologis t Headache 50078168 No spe ech difficulti es or facial weakness noted, CT brain negative 05/22/14, Carotids normal 06/18/14 Pure hypercholesterolemia 341896927 Chronic ob structive pulmonary disease 96860470 Scheduled to see the pulmonolog ist, refused the Influenza vaccine. [id number] November VIKAS Mejía (Adult Med) [address] [place] [address] 10/19/2014 11:16:59 10/19/2014 12:10:23 Pure hypercholesterolemia 656460939 Her LDL is worse at 138, despite her compliance with 40mg po daily of Atorvastat in, I will attempt to push the dose to 80mg po QHS, side effects were discussed. Labs in 6 weeks Chronic ob structive pulmonary disease 11522299 Scheduled to see the pulmonolog ist, however she says that she could not get a hold of them. Pneumovax and Flu vaccine were highly recommende d, she has refused both, despite the extensive discussion regarding the benefits. Z-messi and a short course of Prednisone Tobacco user [id number] C essation was advised [id number] November VIKAS Mejía (Adult Med) [address] [place] [address] 01/30/2015 11:44:52 01/30/2015 14:41:29 Pure hypercholesterolemia 105407588 Her labs are much better on 80mg of Atorvastat in, Chronic ob structive pulmonary disease 25126932 Following up with Dr. Fernando, she is now on home oxygen 1.5-2L She has refused both Pneumonia vaccines Note from pulmonolog ist Screening for cancer 51933209 She was offered a colonoscop y, she has once again refused General ex amination of patient 829185687 Screening mammography 39849010 [id number] [facility] [address] [place] [address] 07/25/2015 11:46:05 07/25/2015 14:44:28 Coronary arteriosclerosis in [place] artery 3593058837 107 I25.10 Z51.81 Recent cath at , 35% occlussion . I will call for a copy of the cardiac cath. This was an extended visit Chronic ob structive pulmonary disease 14453087 J44.[address] Sosa, she is now on home oxygen 1.5-2L She has once again refused both Pneumonia vaccines as well as the Influenza vaccine. Vitamin D deficiency 347 80199 E55.9 Obstructiv e sleep apnea syndrome 43492246 G47.33 She was seen by Dr. Sarkar, she has issues with tolerating the mask. [id number] MD Philip Lang (Adult Med) [address] [place] [address] 11/21/2015 11:38:40 11/21/2015 12:39:00 Pharyngitis 933240971 J02.9 Sore throat and right sided neck pain with movement since which has not changed despite OTC agents and gargling with salt water. [id number] MD Philip Lang (Adult Med) [address] [place] [address]26[address] 0 12/12/2015 11:37:28 12/12/2015 12:35:57 On examination - hoarseness 896180819 R49.8 The pain has resolved, however her voice still varies from being hoarse to having no voice at all. This has been going on for 6 weeks, we will seek the opinion of the ENT surgeon. She was reminded to continue to rinse her mouth after using her Symbicort inhaler. [id number] MD Philip Lang (Adult Med) [address] [place] [address]10[address] 0 06/09/2016 11:59:26 06/09/2016 13:32:51 Severe chronic obstructive pulmonary disease 750052199 J44.9 She cannot tolerate Incruse, I will attempt a PA. In the interim, she should switch to the Spiriva Respimat and I have given her a sample. Immunization refused 275 986744 Z28.20 Discussed Impaired mobility 280191 05 Z74.09 I need a copy of her latest PFT from last week, her FEV1 has to be less than 1 second. I am sure that it is, we however must have documentat ion to support this. 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 Beatty or to me. Acute bronchitis 6638771 2 J20.9 Ecchymosis 128199607 R58 Coronary arteriosclerosis in [place] artery 1185058811 107 Z51.81 Benign ess ential hypertension 8651965 I10 [id number] MD Philip Lang (Adult Med) [address] [place] [address] 07/27/2017 11:08:54 07/27/2017 12:03:18 Essential hypertension 15180838 I10 Screening for malignant neoplasm of breast 583366384 Z12.31 Colonoscopy declined 366 6671098 92667 Z53.20 Diabetes m ellitus screening 824750502 Z13.1 Pharyngitis 564393424 J0 2.9 Disorder o f lipid metabolism 077222860 E78.9 Solitary n odule of lung 348517483 R91.1 Immunization refused 275 317442 Z28.20 She refused despite the fact that I strongly recommende d the Flu vaccine. [id number] MD Philip Lang (Adult Med) [address] [place] [address] 0 01/25/2018 11:31:32 01/26/2018 08:52:53 Colonoscopy declined 5844174035 21586 Z53.20 Cough 43462883 R05 Edema of l ower extremity 079480759 R60.0 This may be due to her CCB Impaired mobility 156091 05 Z74.09 I need a copy of her latest PFT from in [place] , the note from her pulmonolog ist suggests that her last FEV1 was 0.61 L in 2016 Dyspnea 522844788 R06.02 Swelling o f left upper limb 7820471147 6735388 R22.32 Malaise and fatigue 2717 84457 R53.81 Coronary arteriosclerosis in [place] artery 6216284766 107 Z51.81 Solitary n odule of lung 506322059 R91.1 Stable [id number] MD Philip Lang (Adult Med) [address] [place] [address]43[address] 0 03/12/2018 11:49:44 03/12/2018 12:26:00 Chronic obstructive pulmonary disease 05670951 J44.9 Disorder o f lipid metabolism 978160691 E78.9 Screening for malignant neoplasm of breast 627663736 Z12.31 [id number] MD Philip Lang (Adult Med) [address] [place] [address] 0 09/10/2018 11:52:45 09/13/2018 08:29:13 Neck pain 78256828 M54.2 Blurring o f visual image 555604081 H53.8 Nicotine dependence 5629 4008 F17.200 Diabetes m ellitus screening 322976257 Z13.1 [id number] MD Philip Lang (Adult Med) [address] [place] [address] 0 10/21/2018 12:17:17 10/21/2018 13:05:16 Degeneration of cervical intervertebral disc 31997918 M50.30 Improvemen t noted but her pain persists in the posterior area. She denies any radicular symptoms. The xray suggests NFS and DDD. Coronary arteriosclerosis in [place] artery 0428296010 107 Z51.81 Bisoprolol is not on her plan's drug formulary, it was changed to Metoprolol . This was discussed in detail. Screening for disorder 882055515 Z13.9 [id number] MD Philip Lang (Adult Med) [address] [place] [address] 0 12/14/2018 11:53:18 12/14/2018 13:13:58 Blood in urine 45943289 R31.9 Intermitte nt confusion 190186571 R41.0 Edema of l ower extremity 115577764 R60.0 Dependence on supplemental oxygen 2022933176 07 Z99.81 No smokingTit rate Oxygen down to 2.5L/min, then 2L/min as long as her saturation is 90% or above. 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 428335265 M99.59 Memory impairment 081495 006 R41.3 The labs and imaging do not explain her symptomsAd dendumNeur ology evaluation [id number] MD Philip Lang (Adult Med) [address] [place] [address] 0 06/10/2019 15:59:18 06/13/2019 08:48:21 Body mass index 25-29 - overweight 540253462 Z68.26 Follow-up visit 99111480 9 Z09 Influenza vaccination declined 141029429 Z28.21 Discussed in detail, she continues to refuse Tobacco de pendence in remission 268900077 F17.201 LDCT needed Severe chr onic obstructive pulmonary disease 869646934 J44.9 Resume home health, PT, etcThe PFT done 04/26/2019 suggests Very Severe Obstructio n , the complete report has been requested. [id number] MD Philip Lang (Adult Med) [address] [place] [address] [id number] 0 07/27/2019 11:55:30 07/27/2019 12:42:40 Chronic obstructive pulmonary disease 38730582 J44.9 t Acute exac erbation of chronic obstructive pulmonary disease 375206154 J44.1 [id number] MD Philip Lang (Adult Med) [address] [place] [address] 0 08/18/2019 12:00:25 08/18/2019 12:45:56 Chronic obstructive pulmonary disease 26144495 J44.9 Stable at this timeI will have her hold on to a script for Azithromyc in and Prednisone , I have explained to her that she clearly does not need it now. Nausea 872376514 R11.0 Intermitte nt Vitamin D deficiency 347 27942 E55.9 Long-term drug therapy 436208863 Z79.899 Screening for malignant neoplasm of breast 176005306 Z12.31 [id number] FEDERICO HUNTER NP [facility] [address] [place] [address] 08/23/2019 11:53:26 09/13/2019 12:28:27 Chronic obstructive pulmonary disease 35874274 J44.9 -Records request for PFTs, 6 min walk -Continue MDI teaching/t echcarol -COPD education -Pulmonary rehab program discussed, education on program given. Offered pulmonary rehab referral, pt declined at this time. Obstructiv e sleep apnea syndrome 11972825 G47.33 -Request records for sleep study. Pt previously dx with LOUIS, she refuses any further workup and states she will not use a cpap machine. educated pt in importance of CPAP therapy and risks of untreated LOUIS. pt verbalized understand ing, continues to refuse. Former hea vy tobacco smoker [id number] 19417 Z87.891 LDCT, Continue cessation Chronic re spiratory failure 79993131 J96.10 On 2L supplement al oxygen at all times. Essential hypertension 37688778 I10 Continue Medication s. Continue to monitor blood pressure. Encourage low salt diet and exercise. Edema of l ower extremity 691435929 R60.0 mild swelling to left foot. Continue medication s, Reports will see cardiology soon. [id number] FEDERICO HUNTER NP [facility] ts [address] [place] [address] 01/10/2020 09:23:26 01/26/2020 16:42:30 Chronic obstructive pulmonary disease 43476829 J44.9 - Gold 4C, mMRC 3 -Continue MDI teaching/t praveen- Symbicort , in need of additional anticholin ergic inhaler. She declines powder inhaler. -COPD education -Pulmonary rehab program discussed, she is interested and would like to discuss more at next visit. Obstructiv e sleep apnea syndrome 11576616 G47.33 Dx with LOUIS in 2014. Stopped cpap therapy in past due to mask comfortIn need of retesting for dx and cpap equipment if needed , she would like to revisit and order testing at next appointmen t.sleep hygiene discussed Former hea vy tobacco smoker [id number] 90337 Z87.891 LDCT ordered at previous visit, awaiting completion . Continue cessation Chronic re spiratory failure 83391382 J96.10 On 2L supplement al oxygen at rest/sleep , 3L with activityCo mpliant and benefiting from usage Essential hypertension 10427905 I10 Managed in primary care. Continue to monitor blood pressure. Encourage low salt diet and exercise. [id number] Darshan Townsend MD [facility] (Adult Med) [address] [place] [address] 02/21/2020 11:40:32 02/21/2020 12:58:19 Diastolic dysfunction 3599955 I51.9 DiscussedT TE 01/30/2020S T 04/06/2019 Screening for malignant neoplasm of colon 637987838 Z12.11 Edema of l ower extremity 080943004 R60.0 She should double up on her Lasix Chronic ob structive pulmonary disease 65403177 J44.9 She will be following up with her pulmonolog ist Long-term drug therapy 162158938 Z79.899 Coronary arteriosclerosis in [place] artery 9515887578 107 Z51.81 Dyspnea 906540847 R06.02 Intermitte nt palpitations 646798145 R00.2 Localized swelling of left forearm 9775407712 3156957 R22.32 Chronic soft tissue swelling Pain of le ft shoulder joint 2744355796 5206750 M25.512 Malaise and fatigue 2717 82942 R53.81 [id number] BAILEY RAYA [address] [place] [address] 03/05/2020 10:00:51 03/06/2020 08:26:02 Viral screening 560513916 Z11.59 [id number] FEDERICO HUNTER NP [facility] [address] [place] [address] 04/04/2020 12:13:15 04/11/2020 16:39:58 Chronic obstructive pulmonary disease 16683643 J44.9 Pfts done 05/05: severe obstructio n seen in flow reduction, increased volumes and reduction in diffusing capacity. Significan t improvemen t after BD noted FVC :80 %, FEV1: 28 %... 34 % change post broncho, FEV1/FVC ratio: 25 %, T%, RV: 312 %, DLCO: 32 % Ordering new PFTs -Continue MDI Symbicort as prescribed , rinse after each use, Combivent, albuterol as needed, duonebs Stop atrovent -I teaching/t echnique -COPD education Chronic re spiratory failure 21368653 J96.10 On 2L supplement al oxygen at rest/sleep , 3L with activityCo mpliant and benefiting from usage Obstructiv e sleep apnea syndrome 86401178 G47.33 Dx with LOUIS in 2015. Stopped cpap therapy in past due to mask comfortWe have discussed LOUIS and associated problems/r isks if left untreated. I have provided her with literature on LOUIS and advancemen ts in types of masks etc since her study was last done in 2014. She is thinking about pursuing a Split night sleep study. She would like to think about it a little more .Sleep hygiene discussed Former hea vy tobacco smoker [id number] 41039 Z87.891 Continue cessation Essential hypertension 29570243 I10 Managed in primary care. Continue to monitor blood pressure. Encourage low salt diet and exercise. Malignant tumor of lung 106664115 C34.[address] done 03/09/20 with increased metabolic activity to RUL mass. Referred to Oncology and seen 03/20/20. Clinical staging 1A2, will be seen by Dr. Walter carrillo for stereotact ic radio surgery, she is not a candidate for CT guided biopsy due to high risk for Pneumothor ax. He first treatment is scheduled for 04/09/20. [id number] Darshan Townsend MD [facility] (Adult Med) [address] [place] [address] 04/05/2020 08:12:13 04/06/2020 15:01:06 Malignant tumor of lung 745276438 C34.90 She is following up with the Oncologist and her pulmonolog istRadiati on is scheduled with Dr Walter Carrillo Pain of le ft shoulder joint 2685147727 0411802 M25.512 Some improvemen t with Prednisone from Dr Zion salamanca [facility] [id number] FEDERICO HUNTER NP [facility] [address] [place] [address] 06/04/2020 11:56:39 06/05/2020 09:49:39 Chronic obstructive pulmonary disease 94394932 J44.9 Continue symbicort, atrovent, albuterol and nebs. Declines anticholin ergics, states she does not tolerate well. Awaiting PFT, 6 min walk Malignant tumor of lung 542453906 C34.[address] Walter carrillo for stereotact ic radiosurge ry. She has had 3 treatments and has tolerated well. Chronic re spiratory failure 86083016 J96.10 Continue supplement al O2, 2L O2 NC at rest/sleep , 3L with activityCo mpliant and benefiting from usage Obstructiv e sleep apnea syndrome 66106639 G47.33 Declines cpap therapy ro retesting Former hea vy tobacco smoker 1630914847 59753 Z87.891 Continue cessation Essential hypertension 68502923 I10 Managed in primary care. Continue to monitor blood pressure. Encourage low salt diet and exercise. Dyspnea 273064369 R06.00 Reactive a irway disease 4715202280 06 J45.909 Continue MID [id number] Jamie Snell MD [address] [address] 09/07/2020 11:44:48 09/07/2020 13:10:34 Chronic obstructive pulmonary disease 52652898 J44.9 Continue symbicort, atrovent, albuterol and nebs. Chronic re spiratory failure 23209783 J96.10 Continue supplement al O2, 2L O2 NC at rest/sleep , 3L with activityCo mpliant and benefiting from usage Reactive a irway disease 8881823840 06 J45.909 Continue MID Malignant tumor of lung 872071456 C34.[address] Walter carrillo for stereotact ic radiosurge ry. She has had 3 treatments and has tolerated well. Obstructiv e sleep apnea syndrome 13207719 G47.33 Declines cpap therapy ro retesting Former hea vy tobacco smoker 3271361996 14949 Z87.891 Continue cessation Essential hypertension 74305568 I10 Managed in primary care. Continue to monitor blood pressure. Encourage low salt diet and exercise. [id number] Darshan Townsend MD [facility] (Adult Med) [address] [place] [address] 11/01/2020 08:29:21 11/02/2020 09:18:34 Screening for malignant neoplasm of breast 942804003 Z12.31 Medication monitoring 39 9638715 Z51.81 Malignant tumor of lung 832709260 C34.90 She is following up with the Oncologist and her pulmonolog ist She has an appointmen t with the Radiation oncologist , Dr Walter Carrillo HIV screening 319500981 Z11.4 [id number] Jamie Snell MD [facility] [address] [place] [address] 12/07/2020 11:49:53 12/10/2020 15:53:31 Chronic obstructive pulmonary disease 00266437 J44.9 Continue symbicort, atrovent, albuterol and nebs. Chronic re spiratory failure 88431476 J96.10 Continue supplement al O2, 2L O2 NC at rest/sleep , 3L with activity Compliant and benefiting from usage Reactive a irway disease 7995039243 06 J45.909 Continue MID Malignant tumor of lung 276035493 C34.[address] Walter carrillo for stereotact ic radiosurge ry. Obstructiv e sleep apnea syndrome 19547168 G47.33 Declines cpap therapy ro retesting Former hea vy tobacco smoker 6391490289 86760 Z87.891 Continue cessation Essential hypertension 42687889 I10 Managed in primary care. Continue to monitor blood pressure. Encourage low salt diet and exercise. Muscle pain 83463007 M79 .10 Tylenol Motrin Heat patch cxr [id number] Darshan Townsend MD [facility] (Adult Med) [address] [place] [address] 01/16/2021 15:23:37 01/16/2021 16:25:18 Solitary nodule of lung 271453671 R91.1 Stable Colonoscopy declined 237 6928707 35771 Z53.20 Screening for malignant neoplasm of colon 394276127 Z12.11 Chest wall pain 32698756 6 R07.89 [id number] MD [facility] (Adult Med) [address] [place] [address] 01/30/2021 15:49:09 01/31/2021 16:23:07 Chest wall pain 807133979 R07.89 Essential hypertension 32520502 I10 Bronchitis 68054969 J40 [id number] Jamie Snell MD [facility] [address] [place] [address] 03/08/2021 11:49:58 03/08/2021 13:50:29 Chronic obstructive pulmonary disease 62960511 J44.9 Continue symbicort, atrovent, albuterol and nebs as prescribed Chronic re spiratory failure 23615994 J96.10 Continue supplement al O2, 2L O2 NC at rest/ activity Compliant and benefiting from usageOrder ing new portable O2, battery not holding charge Reactive a irway disease 9329998757 06 J45.909 Continue MDI Malignant tumor of lung 085742004 C34.[address] Walter carrillo for stereotact ic radiosurge ry. Obstructiv e sleep apnea syndrome 07895485 G47.33 Declines cpap therapy ro retesting Former hea vy tobacco smoker 7114241683 15318 Z87.891 Continue cessation Essential hypertension 39711428 I10 Managed in primary care. Continue to monitor blood pressure. Encourage low salt diet and exercise. [id number] [facility] [address] [place] [address] 03/13/2021 11:46:52 03/15/2021 07:11:25 Pure hypercholesterolemia 930039845 E78.00 Continue 80mg of Atorvastat in, Benign hypertension 1072 5009 I10 Chest wall pain 50916777 6 R07.89 Medication monitoring 39 5811218 Z51.81 [id number] [facility] [address] [place] [address] 04/19/2021 11:49:27 04/23/2021 05:20:19 Bronchitis 04824320 J40 Impaired f asting glycemia 570053736 R73.01 Immunization advised 310 580561 Z71.9 [id number] Jamie Snell MD [facility] [address] [place] [address] 06/07/2021 11:44:58 06/14/2021 06:38:02 Chronic obstructive pulmonary disease 45786840 J44.9 Continue symbicort, atrovent, albuterol and nebs as prescribed Chronic re spiratory failure 95083278 J96.10 Continue supplement al O2, 2L O2 NC at rest/ activity Compliant and benefiting from usageOrder ing new portable O2, battery not holding charge Reactive a irway disease 8156811664 06 J45.909 Continue MDI Malignant tumor of lung 786878894 C34.[address] Walter carrillo for stereotact ic radiosurge ry. Obstructiv e sleep apnea syndrome 06322127 G47.33 Declines cpap therapy ro retesting Former hea vy tobacco smoker 3387836498 67306 Z87.891 Continue cessation Essential hypertension 98225197 I10 Managed in primary care. Continue to monitor blood pressure. Encourage low salt diet and exercise. [id number] Jamie Snell MD [facility] [address] [address] 09/13/2021 11:57:15 09/13/2021 13:18:51 Chronic obstructive pulmonary disease 78110019 J44.9 Continue symbicort, atrovent, albuterol and nebs as prescribed Chronic re spiratory failure 74232520 J96.10 Continue supplement al O2, 2L O2 NC at rest/ activity Compliant and benefiting from usageAmeri can home DME she is not satisfied, getting run around regarding battery Reactive a irway disease 6870203347 06 J45.909 Continue MDI Malignant tumor of lung 651400810 C34.[address] Walter carrillo for stereotact ic radiosurge ry. Obstructiv e sleep apnea syndrome 18811604 G47.33 continues to decline cpap therapy Former hea vy tobacco smoker 8284068092 66859 Z87.891 Continue cessation Essential hypertension 36390115 I10 Managed in primary care. Continue to monitor blood pressure. Encourage low salt diet and exercise. [id number] Darshan Townsend MD [facility] (Adult Med) [address] [place] [address] 10/17/2021 11:59:14 10/17/2021 12:55:41 Coronary arteriosclerosis in [place] artery 0381044299 107 Z51.81 Edema of l ower extremity 540756948 R60.0 She should use her Lasix PRN only Immunization advised 310 861218 Z71.9 Follow-up visit 51704517 9 Z09 [id number] Jamie Snell MD [facility] [address] [place] [address] 12/27/2021 11:48:29 01/01/2022 08:41:31 Chronic obstructive pulmonary disease 94228876 J44.9 StableCont inue symbicort, atrovent, albuterol and nebs as prescribed Chronic re spiratory failure 25386319 J96.10 Continue supplement al O2, 2L O2 NC at rest/ activity Compliant and benefiting from usageAmeri can home DME she is not satisfied, getting run around regarding battery Reactive a irway disease 2332585449 06 J45.909 Continue MDI Malignant tumor of lung 788038149 C34.[address] Carrillo, Oncology, will continue Chest ct w/o surveilanc e for Bronchogen ic carcinoma , last appointmen t on 10/14/21. Clinical staging 1A2, seeing Dr. Walter carrillo for stereotact ic radiosurge ry, Treatments have been completed Former hea vy tobacco smoker 0011752888 48435 Z87.891 Stop smoking Essential hypertension 27374581 I10 Managed in primary care. Continue to monitor blood pressure. Encourage low salt diet and exercise. History of pneumonia 161 918536 Z87.01 10/07/21 developed a fever, chills, and increased dyspnea with wheezing earlier this month. She presented to the ED for further management . She was diagnosed with a bacterial pneumonia and reportedly negative COVID test. Antibiotic s were prescribed and she had improvemen t in symptoms. [id number] Jamie Snell MD [facility] [address] [place] [address] 03/28/2022 11:43:46 03/28/2022 12:18:20 Chronic obstructive pulmonary disease 35885505 J44.9 Continue symbicort, atrovent, albuterol and nebs as prescribed MDI teaching Chronic re spiratory failure 00241763 J96.10 Continue supplement al O2, 2L O2 NC at rest/ activity Compliant and benefiting from usage Reactive a irway disease 8476690794 06 J45.909 Continue MDI Malignant tumor of lung 755914991 C34.[address] Carrillo, Oncology, will continue Chest ct w/o surveilanc e for Bronchogen ic carcinoma , Clinical staging 1A2, seeing Dr. Walter carrillo for stereotact ic radiosurge ry, Treatments have been completed Essential hypertension 68214851 I10 [id number] Darshan Townsend MD [facility] (Adult Med) [address] [place] [address] 04/22/2022 12:01:22 04/23/2022 11:31:47 Screening for malignant neoplasm of breast 418831443 Z12.31 Impaired mobility 846442 05 Z74.09 Immunization advised 310 781166 Z71.9 Body mass index 30+ - obesity 050657499 Z68.30 Administra tion of pneumococcal vaccine 01829553 Z23 Persistent cough 5357981 02 R05.3 Bradycardia 63401631 R00 .1 Most likely from her Metoprolol [id number] Jamie Snell MD [facility] [address] [place] [address] 06/27/2022 11:57:22 06/27/2022 14:11:10 Chronic obstructive pulmonary disease 92360601 J44.9 Continue symbicort, atrovent, albuterol and nebs as prescribed MDI teaching Chronic re spiratory failure 46429666 J96.10 Continue supplement al O2, 2L O2 NC at rest/ activity Compliant and benefiting from usage Reactive a irway disease 7324337079 06 J45.909 MDIs Malignant tumor of lung 933808407 C34.[address] Carrillo, Oncology, will continue Chest ct w/o surveilanc e for Bronchogen ic carcinoma , Treatments have been completed Essential hypertension 77726161 I10 [id number] FEDERICO HUNTER NP [facility] [address] [place] [address] 09/26/2022 11:49:55 09/26/2022 13:08:41 Chronic obstructive pulmonary disease 73186167 J44.9 COPD exacerbati onCXRcompl ete antibiotic s and steroidsSt art prednisone 5mg daily after 20mg dose completedC ontinue symbicort, atrovent, albuterol and nebs as prescribed Continue MDI teaching Symbicort 160 mcg and , nebs, albuterol as needed Reactive a irway disease 8737595458 06 J45.909 Continue MDIs and nebs Malignant tumor of lung 715406710 C34.[address] Carrillo, Oncology, will continue Chest ct w/o surveilanc e for Bronchogen ic carcinoma , Treatments have been completed Essential hypertension 97841400 I10 Pulmonary emphysema 8743 3001 J43.9 [id number] Darshan Townsend MD [facility] (Adult Med) [address] [place] [address] 10/20/2022 11:49:03 10/21/2022 09:35:28 Body mass index 30+ - obesity 332943842 Z68.30 Immunization advised 310 383372 Z71.9 Her Pneumonia vaccine series is complete Coronary arteriosclerosis in [place] artery 9324794210 107 Z51.81 Medication monitoring 39 4060495 Z51.81 Imaging of lung abnormal 350135598 R91.8 Stable Abnormal f indings on diagnostic imaging of breast 791115057 R92.8 Stable [id number] FEDERICO HUNTER NP [facility] [address] [place] [address] 12/30/2022 11:08:05 12/30/2022 14:17:44 Chronic obstructive pulmonary disease 44436576 J44.9 stable Continue MDI teaching Symbicort 160 mcg nebs, albuterol as needed Reactive a irway disease 9318565822 06 J45.909 Continue MDIs and nebs Malignant tumor of lung 885929996 C34.[address] Carrillo, Oncology Chest ct w/o contrast 10/10/22; stable, no evidence of active malignancy or metastatic diseaseTre atments have been completed Essential hypertension 14586756 I10 [id number] MD [facility] (Adult Med) [address] [place] [address] 04/22/2023 12:12:27 04/24/2023 06:26:52 Benign hypertension 93786081 I10 Edema of l ower extremity 613789710 R60.0 On Lasix PRN only Pure hypercholesterolemia 532495484 E78.00 Continue 80mg of Atorvastat in, Impaired f asting glycemia 894746876 R73.01 Discussed Eruption 984706650 R21 Coronary arteriosclerosis 23468866 I25.10 [id number] Jamie Snell MD [facility] [address] [place] [address] 07/01/2023 11:51:00 07/06/2023 08:13:44 Chronic obstructive pulmonary disease 71230274 J44.9 stable Continue MDI teaching Symbicort 160 mcg nebs, albuterol as needed Reactive a irway disease 6727640907 06 J45.909 Continue MDIs and nebsMDI teaching Malignant tumor of lung 452767218 C34.[address] Carrillo, Oncology Chest ct w/o contrast 10/10/22; stable, no evidence of active malignancy or metastatic diseaseTre atments have been completed Essential hypertension 90154080 I10 continue home meds Moderate p ersistent asthma 009386320 J45.40 [id number] Jamie Snell MD [facility] [address] [place] [address] 10/07/2023 12:06:48 10/08/2023 08:04:39 Chronic obstructive pulmonary disease 95953058 J44.9 stable Continue MDI teaching Symbicort 160 mcg nebs, albuterol as needed Coronary arteriosclerosis in [place] artery 7148062577 107 I25.10 Reactive a irway disease 5699878309 06 J45.909 Continue MDIs and nebsMDI teaching Malignant tumor of lung 516281014 C34.[address] Carrillo, Oncology Chest ct w/o contrast 10/10/22; stable, no evidence of active malignancy or metastatic diseaseTre atments have been completed Essential hypertension 50214209 I10 continue home meds Moderate p ersistent asthma 799724399 J45.40 Severe chr onic obstructive pulmonary disease 651114051 J44.9 [id number] Darshan Townsend MD [facility] (Adult Med) [address] [place] [address] 10/27/2023 11:58:34 10/29/2023 20:19:50 Chronic obstructive pulmonary disease 20257605 J44.9 She is unable to tolerate the medication s on formulary, Breo and Wixela and Airsupra is not appropriat e.Stop WixelaPA for Symbicort. Immunization advised 310 219483 Z71.9 COVID vaccine Screening mammography 24 466659 Z12.31 [id number] Jamie Snell MD [facility] [address] [place] [address] 01/06/2024 14:10:35 01/06/2024 14:54:38 Chronic obstructive pulmonary disease 39263497 J44.9 stable Continue MDI teaching Symbicort 160 mcg nebs, albuterol as needed Severe chr onic obstructive pulmonary disease 146133971 J44.9 Coronary arteriosclerosis in [place] artery 1335337894 107 I25.10 Reactive a irway disease 3079915007 06 J45.909 [facility] Malignant tumor of lung 030895179 C34.[address] Carrillo, Oncology Chest ct w/o contrast 10/10/22; stable, no evidence of active malignancy or metastatic diseaseTre atments have been completed Essential hypertension 86689552 I10 continue home meds Moderate p ersistent asthma 141788858 J45.40 Asthma 278083660 J45.90 9 [id number] Darshan Townsend MD [facility] (Adult Med) [address] [place] [address] 03/30/2024 11:59:04 04/06/2024 08:32:49 Eruption 585792895 R21 Milia?, Photosensi tive rash? Infection of skin 441067 000 L08.9 General ex amination of patient 225084631 Z00.01 Postmenopausal state 764 95619 Z78.0 [id number] Jamie Snell MD [facility] [address] [place] [address] 04/06/2024 12:25:09 04/06/2024 12:55:19 Chronic obstructive pulmonary disease 92207679 J44.9 stable Continue MDI teaching Symbicort 160 mcg nebs, albuterol as needed Severe chr onic obstructive pulmonary disease 944760696 J44.9 Coronary arteriosclerosis in [place] artery 9228011979 107 I25.10 Reactive a irway disease 7979154430 06 J45.909 Continue MDIs and nebsMDI teaching Malignant tumor of lung 087503404 C34.[address] Carrillo, Oncology Chest ct w/o contrast 10/10/22; stable, no evidence of active malignancy or metastatic diseaseTre atments have been completed Essential hypertension 45649332 I10 continue home meds Moderate p ersistent asthma 544593787 J45.40 Asthma 047000745 J45.90 9 Health Concerns Section Related Observation LastModified by Organization Detai ls LastModified Time None Recorded Concern Status LastModified by Organization Details LastModified Time None Recorded Advance Directives Directive N: Payers Encounter Date Sequence Insurance Name Policy Number Policy Rachel Covered Member ID Rachel Member ID Guarantor Name 10/07/2023 1 [employer] (MEDICARE REPLACEMENT PPO) [id number] July K [place] [id number] July [place] 10/07/2023 2 [employer] [place] - [place] ON OR AFTER 2020 (MEDICAID REPLACEMENT - HMO) July K Poneta [id number] July [place] 10/27/2023 1 [employer] - PRIME (MEDICARE REPLACEMENT/AD VANTAGE - HMO) [id number] July K Poneta [id number] July [place] 01/06/2024 1 [employer] (MEDICARE REPLACEMENT PPO) [id number] July K Pon[place] [id number] July [place] 01/06/2024 2 [employer] [place] ON [place] AFTER 2020 (MEDICAID REPLACEMENT - HMO) July K Poneta [id number] July [place] 03/30/2024 1 [employer] - PRIME (MEDICARE REPLACEMENT/AD VANTAGE - HMO) [id number] July K Poneta [id number] July [place] 03/30/2024 2 [place] WHEN MEDICARE OR MEDICARE REPLACEMENT PRIMARY) July Poneta [id number] July [place] 04/06/2024 1 [employer] (MEDICARE REPLACEMENT PPO) [id number] July K Poneta [id number] July [place] 04/06/2024 2 [employer] [place] ON [place] AFTER 2020 (MEDICAID REPLACEMENT - HMO) July K Poneta [id number] July [place] Notes Date Note Type Note Provider Name and Address Organization Details Recorded Time 10/07/2023 text/html follow up COPD/c hronic respiratory failurereports good day and bad days+BAXTER, adlsdenies increased SOB, cough, or feverDME - [facility] [facility] pt2L O2 NC at rest/ activityusing Breo . insurance is not covering Advairdoe not like it.Atrovent as prescribedFollowed by Dr. Carrillo, Oncology, will continue Chest ct w/o surveilance for Bronchogenic carcinoma ,next appointment ct w/o contrast 10/10/22; stable, no evidence of active malignancy or metastatic diseasePFTs done [facility] FEV1/FVC ratio is 77 Jamie Snell MD [address], [place], [address], [place] [facility] 10/07/2023 12:40:05 10/27/2023 text/html Ms Lloyd is lissy ble to tolerate Breo or Wixela as the powder just gets stuck in the back of her throat, the other option is Airsupra which is not a LABA/CCS. She never had any issues with Symbicort. In the interim, she was seen by her sole layer and dental office assistant. Darshan Townsend MD Attn: Accounting,[address] [facility], [place], [address], [place] [facility] 10/27/2023 12:58:38 01/06/2024 text/html follow up COPD/c hronic respiratory failurereports good day and bad days+BAXTER,denies increased SOB, cough, or feverDME - [place] pt2L O2 NC at rest/ activityusing symbicortAtrovent as prescribedFollowed by Dr. Carrillo, Oncology, will continue Chest ct w/o surveilance for Bronchogenic carcinoma ,next appointment 05/09Ches ct w/o contrast 10/10/22; stable, no evidence of active malignancy or metastatic diseasePFTs done in July 2023 at [facility] reviewed FEV1/FVC ratio is 77 Jamie Snell MD [address], [place], [address], [place] [facility] 01/06/2024 14:40:59 03/30/2024 text/html Medicare Annual Wellness VisitReported bypatient.Diet and Nutrition:healthy diet; discussed vitamin and supplement use Fracture Risk:no history of fractures; no recent explained fracture; no sudden unexplained fractures; no previous musculoskeletal injuries Physical Activity:discussed weightbearing activities; discussed exercise habits Depression Risk:never feels sad, empty, or tearful; no loss of interest in activities; no significant changes in weight; no sleep disturbances or insomnia; no agitation; no loss of energy; no feelings of worthlessness or guilt; no thoughts of suicide; no history of depression; no history of mood disorders Orientation:no disorientation to time; no disorientation to date; no disorientation to place Concentration and Memory:no decreased concentrating ability; no memory lapses or loss; does not forget words Speech/Motor difficulties:no speech difficulties; no difficulty expressing formulated concepts; no difficulty with fine manipulative tasks; no difficulty writing/copying; no slowed reaction time; does not knock things over when trying to pick them up Hearing:no loss of hearing Vision:worse near Activities of Daily Living:able to bathe with limited or no assistance; able to contol urination and bowels; able to dress with limited or no assistance; able to feed self with limited or no assistance; able to get out of chair or bed with limited or no assistance; able to groom with limited or no assistance; able to toilet with limited or no assistance Instrumental Activities of Daily Living:able to manage medications with limited or no assistance; able to manage money with limited or no assistance; able to use the phone with limited or no assistance;unable to do house work without assistance;unable to grocery shop without assistance;unable to to prepare meals without assistance Falls Risk Assessment:no frequent falls while walking; no fall in the past year; no fall since last visit; no dizziness/vertigo Home Safety:no unsafe margarita hazzards; no unsafe stairs; no unsafe gas appliances; working smoke/CO detectors; wears protective head gear for biking/high velocity; use of seatbelts; no vision or hearing loss while driving; no fire arms; has hand bars in the bathroom/shower; good lighting in the home 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 She also sustained a skin tear on her right forearm, she has been using H2O2 and Triple antibiotic topically. Darshan Townsend MD Attn: Accounting,[address] [facility], [place], [address], [place] 03/30/2024 14:46:49 04/06/2024 text/html follow up COPD/c hronic respiratory failure reports good day and bad days denies BAXTER, denies increased SOB, cough, or fever DME - [place] pt 2L O2 NC at rest/ activity using symbicort Atrovent as prescribed Followed by Dr. Carrillo, Oncology, will continue Chest ct w/o surveilance for Bronchogenic carcinoma , Chest ct w/o contrast 10/10/22; stable, no evidence of active malignancy or metastatic disease PFTs done in July 2023 at [facility] reviewed FEV1/FVC ratio is 77 PFTs done in [place] are NOT available to review Jamie Snell MD [address] [place], [address], [place] 04/06/2024 12:43:14 OBGyn Episode No OBEpisode recorded.
== END 2024-09-22 08:54 | disposition home or self-care (01) ==
PROVIDERS: PCP Internal Medicine Infectious Disease; Visit Provider Internal Medicine Infectious Disease
DX: M85.89 Other specified disorders of bone density and structure, multiple sites (principal); Z78.0 Asymptomatic menopausal state; Z13.820 Encounter for screening for osteoporosis
CPT/HCPCS: 77080

== ENCOUNTER 2024-10-11 09:58 | Outpatient (CLI) | payer MEDICARE, MEDICAID, SELFPAY ==
--- NOTE | ~2024-10-11 | CT_ITS ---
EXAMINATION:CT diagnostic chest wo con DATE: 10/11/2024 10:19 INDICATION: Bronchogenic carcinoma of right lung. TECHNIQUE: Computed tomography (CT) of the chest was performed without intravenous contrast. Automate d exposure control and iterative reconstruction technique were employed. The dose-length product (DLP ) was 164.28 mGy-cm. COMPARISON: Chest CT 04/15/2024, 02/29/2020 FINDINGS: There is severe emphysema. Calcified right lung nodules and calcified right hilar and media stinal lymph nodes are consistent with old granulomatous disease. There are stable peripheral airspac e opacities in right upper lobe. There is mild scarring at left lung apex. No pleural effusion. The h eart size is normal. There are coronary artery calcifications. No pericardial effusion. There is mary re cervical spondylosis and moderate thoracic spondylosis. There is sclerosis of multiple right-sided ribs, consistent with radiation osteitis. There are old healed right rib fractures. Again seen is a healing fracture of right fourth rib. IMPRESSION: 1. Stable airspace opacities in peripheral right upper lobe, consistent with primary bronchogenic car cinoma and changes of radiation therapy. 2. Severe emphysema. Reviewed, dictated and finalized at location A. IC AND TEXTILE FACTORY WORKER IMPRESSION: 1. Stable airspace opacities in peripheral right upper lobe, consistent with pr imary bronchogenic carcinoma and changes of radiation therapy. 2. Severe emphysema.
--- OUTSIDE RECORDS SUMMARY | 2024-10-11 11:25 | XMS_ITS | Encounter Summary ---
Author Organization [facility] Facility Care Team Providers Care Sterilization Technician Name Role Phone Darshan Ballesteros MD Primary Care Provider Abdiaziz Fuentes DO Unavailable [phone] Walter Rowan MD Unavailable [phone] Cholo Aguilar MD Unavailable Cholo Aguilar MD Unavailable Walter Rowan MD Unavailable [phone] Encounter Details Date Type Department Care Team (Latest Contact Info) Description 10/10/2015 Orders Only [facility] CLINCONV ProviderDayan MD [address] [place] [address] Social History Tobacco Use Types Packs/Day Years Used Date Smoking Tobacco: Never Assessed Comments Unknown Sex and Gender Information Value Date Recorded Sex Assigned at Not on file 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 Gender Identity Not on file Sexual Orientation [...] on filedocumented in this encounter Care Teams Sterilization Technician Relationship Specialty Start Date End Date Darshan Ballesteros MD [address] [facility] [address] [place] [address] PCP - General Internal Medicine 11/12/18 Abdiaziz Fuentes DO [facility] [address] Medical Oncologist/Rn Picu Hematology and Oncology 10/15/20 Walter Rowan MD [address] [place] [address] [id number] Radiation Oncologist Radiation Oncology 04/10/21 Cholo Aguilar MD [address] [place] [address] [id number] Sales Incentive Analyst Pulmonary Disease 07/15/21 Cholo Aguilar MD [address] [place] [address] [id number] Surgeon Pulmonary Disease 04/21/23 Walter Rowan MD [address] [place] [address] [id number] Radiation Oncologist Radiation Oncology 04/01/24 documented as of this encounter
--- OUTSIDE RECORDS SUMMARY | 2024-10-11 11:25 | XMS_ITS | Encounter Summary ---
Author Organization [facility] Facility Care Team Providers Care Box Office Clerk Name Role Phone Darshan Ballesteros MD Primary Care Provider Abdiaziz Fuentes DO Unavailable [phone] Walter Rowan MD Unavailable [phone] Cholo Aguilar MD Unavailable Cholo Aguilar MD Unavailable Walter Rowan MD Unavailable [phone] Encounter Details Date Type Department Care Team (Latest Contact Info) Description 06/20/2015 Orders Only [facility] CLINCONV ProviderDayan MD [address] [place] [address] Social History Tobacco Use Types Packs/Day Years Used Date Smoking Tobacco: Never Assessed Comments Unknown Sex and Gender Information Value Date Recorded Sex Assigned at Not on file 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 Gender Identity Not on file Sexual Orientation [...] filedocumented in this encounter Care Teams Box Office Clerk Relationship Specialty Start Date End Date Darshan Ballesteros MD [address] [address] PCP - General Internal Medicine 11/12/18 Abdiaziz Fuentes DO [address] [address] Medical Oncologist/Grill Attendant Hematology and Oncology 10/15/20 Walter Rowan MD [facility] 247[address] Radiation Oncologist Radiation Oncology 04/10/21 Cholo Aguilar MD [address] [address] Tongue And Groove Machine Operator Pulmonary Disease 07/15/21 Cholo Aguilar MD [address] [place] [address] Surgeon Pulmonary Disease 04/21/23 Walter Rowan MD [address] [address] Radiation Oncologist Radiation Oncology 04/01/24 documented as of this encounter
--- OUTSIDE RECORDS SUMMARY | 2024-10-11 11:25 | XMS_ITS | CONTINUITY OF CARE DOCUMENT ---
Author Name yared vail Address Unknown Organization [facility] Address [address] [facility] [address] [place] [address] Phone [phone] Care Team Providers Care Battery Container Inspector Name Role Phone Sam BARRIGA, Andrew Unavailable EDI TOWNSEND MD Unavailable EDI TOWNSEND MD Unavailable [phone] PROBLEMS Condition Status Date Provider Notes PREDIABETES; active Andrew Vargas MD Tricuspid regurgitation, mild active Andrew Vargas MD Diastolic dysfunction active Andrew Vargas MD Emphysema;see lung md active Andrew Vargas MD Tobacco use, quit active Andrew Vargas MD Screening active Andrew Vargas MD neg d HTN essential active Andrew Vargas MD VITAMIN D DEFICIENCY active Andrew Banuelos Hyperlipidemia;with low lpa and high crp active Andrew Vargas MD FAMILY HISTORY OF HEART DISEASE active Andrew Vargas MD family hx CAD;NEG DUPLEX per pt active Andrew Vargas MD Abnormal electrocardiogram completed 04/06 - Andrew Vargas MD [place], adult active Andrew Vargas MD Lung cancer active Andrew Vargas MD had rad rxl 2020 Pulmonary hypertension active Andrew Vargas MD Overweight active Andrew Vargas MD ENCOUNTERS Date Type Provider Location Encounter Diag nosis - In-person encounter Office Visit Andrew Vargas MD [facility] ScreeningHyperlipidemia;with low lpa and high crpPulmonary hypertensionOverweight - In-person encounter Office Visit Andrew Vargas MD [facility] [place], adultLung cancer - In-person encounter Office Visit Andrew Vargas MD [facility] VITAMIN D DEFICIENCYAbnormal electrocardiogram - In-person encounter Office Visit Andrew Vargas MD [facility] Emphysema;see lung mdTobacco use, quitScreeningHTN essentialVITAMIN [...] Vargas MD blood pressure, diastolic 70 mm[Hg] Dodie nkLogic blood pressure, systolic 131 mm[Hg] Yasmine kLogic blood pressure, cuff size regular Ja rret blood pressure, diastolic 70 mm[Hg] Ja rret blood pressure, systolic 131 mm[Hg] Jar ret pulse rate 65 /min Shade y respiratory rate E&M 12 /min Shade Inhaled O2 2 L/min Shade y oxygen saturation, oximetry 86 % Shade weight E&M 159 [lb_av] Shade y height E&M 60 [in_i] Shade y Body Mass Index (Ratio) 30.07 kg/m2 Lisseth Vargas MD respiratory rate E&M 16 /min Tonsha Pepe blood pressure, diastolic 72 mm[Hg] To nsha Pepe blood pressure, systolic 132 mm[Hg] Ton [facility] Pepe blood pressure, resting Yes Tons [facility] Pepe oxygen saturation, oximetry 94 % Tonsha Pepe pulse rate 59 /[facility] 154 [lb_av] [facility] height E&M 60 [in_i] [facility] temperature site temporal Tammy Tank sley temperature E&M 97.5 [degF] Tammy [facility] Body Mass Index (Ratio) 26.75 kg/m2 Lisseth Vargas MD Inhaled O2 2 L/min Kim Smiley l blood pressure, cuff size regular Cy raheem Carbajal blood pressure, diastolic 70 mm[Hg] Cy raheem Carbajal blood pressure, systolic 134 mm[Hg] Petra Carbajal oxygen saturation, oximetry 87 % Kim Carbajal pulse rate 74 /min Kim Odombel l respiratory rate E&M 16 /min Kim Carbajal height E&M 60 [in_i] Kim Leibel l weight E&M 137 [lb_av] Kim Odombel l ALLERGIES Allergy Name Onset Date Reaction Criticality Status Tiotropium Cubero Low Criticality a ctive Oxycodone-Acetaminophen Low Critical [...] 0-149 1 cholesterol, serum 140 mg/dL Link[facility]ic [id number]/07/3 1 calcium, serum 9.9 mg/dL LinkLogic 8.7-10.3 [...] Estab. 1 platelet count 292 X10E3/UL LinkLogic 190-021 9616/07/3 1 red blood cell distribution width 14.0 [...] Medication Status Instructions Dates Provider Indications Com ments Jardiance 10 mg tablet active TAKE 1 TABLET [...] BY MOUTH TWICE A DAY - Jinny Pierce ranolazine 500 mg tablet extended release 12 hr completed TAKE 1 TABLET BY MOUTH TWICE DAILY - Urvashi RICE Atrovent HFA 17 mcg/actuation HFA aerosol inhaler active Inhale 2 puff by mouth four times a day Urvashi RIOSP #12.9, 30 days supply, Prescribed by FEDERICO [...] Take 1 tablet once a day - [facility] metoprolol tartrate 25 mg tablet active Take 1 tablet by mouth twice a day Kim Carbajal atorvastatin 80 mg tablet active Take 1 tablet once a day Kim Carbajal aspirin 81 mg tablet,delayed release (DR/EC) active Take 1 tablet by mouth once a day [facility] amlodipine 10 mg tablet active Take tablet [...] MD drug use no Urvashi Ventimig nenita [facility] alcohol use no Urvashi Ventimig nenita [facility] smoking status Former smoker Urvashi Venti miglia [facility] social history E&M S moking History: Pancho richard is a former smoker. Andrew Vargas MD social history reviewed E&M revi ewed - no changes required Andrew Vargas MD smoking, year quit 2018 Tonsha Mo ss smoking history, tot al pack/day 4 PPD Tonsha Pepe cigarette use yes Tonsha Pepe smoking status Former smoker Anisha Pepe quit smoking, stage quit Andrew pa MD social history E&M S moking History: Pancho richard is a former smoker. Andrew Vargas MD social history reviewed E&M radha garcia - no changes required Andrew Vargas MD smoking, year quit 2019 Kim Melba bell smoking history, tot al pack/day 4 PPD Kim Carbajal cigarette use yes Kim Ambriz smoking status Former smoker Kim Lei arzate [...] Payer name Policy type / Coverage type [place] red democrat ID [employer] MEDICARE GOLD ADVANTAGE HMO Medicare [id number] [facility] SERVICES Medicaid 9 [id number] ADVANCE DIRECTIVES Name Date DISCUSSED - NO DECISION MADE TREATMENT PLAN Date Name Performer [id number],C,nml pro Kay Vargas MD [id number],S, Urvashi mcmullen [facility] [id number],S,will do f/u e cho Urvashi Christy [facility] [id number],S,r cedrick on statin therapy. LIpids at goal. Last LDL was 61 H er updated medication list for this problem includes: Atorvastatin 80 Mg Tablet (Atorvastatin) ..... Take 1 tablet once a day Urvashi Christy [facility] [id number],C,O2 dependent Urvashi Westley [facility] [id number],S,B P well controlled 131/70. C ontinue present [...] once a day as needed Urvashi Christy [facility] [id number],S,H as history of HFref. She has chronic SOB unclear if related to her COPD or also diastolic HF. We will update some labs. Recent labs from PCP show no anemia. Will also update echo as last echo was in 2019. 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 as well as her pre-diabetes O rders: E KG (CPT-39981) 9 9214 MOD 30-39min (CPT-48705) C omplete Echo (CPT-74238) P ROBNP, N TERMINAL (39739) P ROBNP, N TERMINAL (20436) M icroalb/Creatinine Urine, Random (6517) L ipoprotein (a) (490487) C RP, high sensitivity (50900) C T, Coronary Calcium Score (CPT-47799) Urvashi Christy [facility] :5.7 Andrew Vargas MD Cardiology Andrew Vargas MD Cardiology Andrew Vargas [...] MD :nml pro Andrew Vargas MD Cardiology Urvashimichael Garciajr henry [facility] Cardiology:will do f/u echo Darrell Mason [facility] Cardiology:remains o n statin therapy. LIpids at goal. Last LDL was 61 H er updated medication list for this problem includes: Atorvastatin 80 Mg Tablet (Atorvastatin) ..... Take 1 tablet once a day Urvashimichael Garciajrhenry [facility] Cardiology:O2 dependent Urvashi spraguejrhenry [facility] Cardiology:BP well c ontrolled 131/70. C [...] mouth once a day as needed Urvashi [facility] Cardiology:Has histo ry of HFref. She has chronic SOB unclear if related to her COPD or also diastolic HF. We will update some labs. Recent labs from PCP show no anemia. Will also update echo as last echo was in 2019. 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 as well as her pre-diabetes O rders: E KG (CPT-83871) 9 9214 MOD 30-39min (CPT-19324) C omplete Echo (CPT-12089) P ROBNP, N TERMINAL (75295) P ROBNP, N TERMINAL (37220) M icroalb/Creatinine Urine, Random (7617) L ipoprotein (a) (231929) C RP, high sensitivity (90631) C T, Coronary Calcium Score (CPT-45220) Urvashi Christy [facility] Cardiology Andrew Vargas MD Cardiology Andrew [...] New Patient Andrew chinchilla MD Cardiology New [place]he[place] nt : H er updated medication list [...] Andrew Vargas MD complete d Counseling LDCT Andrew Vargas MD com pleted EKG Andrew Vargas MD complete d Regadenoson, 4 units Andrew Vargas MD completed Cardiolite, 2 units Andrew Vargas MD completed SPECT Images Andrew Vargas MD comple caroline Stress EKG Andrew Vargas MD complete d EKG Andrew Vargas MD complete d
--- OUTSIDE RECORDS SUMMARY | 2024-10-11 11:26 | XMS_ITS | Clinical Summary ---
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
--- OUTSIDE RECORDS SUMMARY | 2024-10-11 11:26 | XMS_ITS | Data Portability ---
Author Organization [facility] Address [address] [place] [address] Care Team Providers Care Icu Specialist Name Role Phone DARSHAN TOWNSEND Primary Care Provider BASSAM PARRA Trauma Program Manager JAMIE SNELL Scientific Director Unavailable Assessment No assessment recorded. Plan of Treatment Reminders Order Date Submit Date Provider Last Modified By Organization Details Last Modified Time Details Appointments ANY 2024 02:30P Sonya Snell MD Not available Not available Not available ANY 15 2024 11:00A Sonya Townsend MD Not available Not available Not available Lab alkali ne phosph atase, bone-s pecifi c, serum 2024 025 [facility], [address], [place], [address], 10/04/2024 13:12:36 basic metabo lic 1998 panel, serum or plasma 2024 025 [facility], [address], [place], [address], 10/04/2024 13:12:35 CBC 2024 025 [facility], [address], [place], [address], 10/04/2024 13:12:39 HbA1c (hemog lobin A1c), blood 2024 025 [facility], [address], [place], [address], 10/04/2024 13:12:37 vitami n D, 25-hyd leatha, total, serum 2024 025 [facility], [address], [place], [address], 10/04/2024 13:12:40 CMP, serum or plasma 2023 024 [facility], [address], [place], [address], 04/28/2024 08:33:34 urinal ysis macro (dipst ick) panel, urine 2023 024 [facility], [address], [place], [address], 04/28/2024 08:33:35 lipid panel, serum 2023 024 [facility], [address], [place], [address], 04/28/2024 08:33:33 CBC 2023 024 [facility], [address], [place], [address], 04/28/2024 08:33:36 vitami n D, 25-hyd leatha, total, serum 2023 024 [facility], [address], [place], [address], 04/28/2024 08:33:37 Referral dermat ologis t referr ольга velazquez rash of both LE 2023 024 lamont Moore MD ([facility], Dermatology), [address], [place], [address], 04/27/2024 15:13:14 Procedures None record ed. Surgeries None record ed. Imaging MAMMO, screen ing, bilate ral 2024 025 [facility] (One Call Scheduling), [address] [place], [address], 09/30/2024 12:42:50 DEXA 2023 024 [facility] (Imaging), [address] [facility] [address], [address], 09/27/2024 13:08:53 [facility]FT, comple te [facility]23 [facility] [address] [place], [address], 01/29/2024 13:54:39 MAMMO, screen ing, digita l, bilate ral 2023 024 [facility] (One Call Scheduling), [address] [place], [address], 02/15/2024 20:59:09 Medication Orders calciu m 600 mg (as carbon ate)-v itamin D3 10 mcg (400 unit) tablet 2024 025 [id number], [address], [place], [id number], 09/30/2024 12:37:27 Augmen tin 875 mg-125 mg tablet 2023 024 [id number], [address], [place], [id number], 04/06/2024 12:34:49 Symbic ort 160 mcg-4. 5 mcg/ac tuatio n HFA aeroso l inhale r 2023 024 [id number], [address], [place], [id number], 10/30/2023 19:18:58 Patient TargetsNo targets recorded. Patient Instructions Encounter Date Encounter Id Patient Instructions Last Modified By Organization Details Last Modified Time 10/27/2023 [id number] mammogram: about this test oajao Not available 10/27/2023 12:43:18 Restart Symbicor t Stop Wixela COVID vaccine MMG Follow up in 6 months and PRN oajao Not available 10/27/2023 12:57:17 03/30/2024 [id number] rash: care instructions oajao Not available 03/30/2024 12:38:32 Labs DEXA Augmentin Follow up, in 6 months and PRN oajao Not available 03/30/2024 12:44:38 09/30/2024 [id number] A healthy lifestyle: care instructions oajao Not available 09/30/2024 12:25:51 prediabetes: car e instructions oajao Not available 09/30/2024 12:40:21 learning about breast cancer screening oajao Not available 09/30/2024 12:42:50 learning about healthy weight oajao Not available 09/30/2024 12:25:51 Cardiac cath report from [place] Start Calcium/D MMG in February, Labs Follow up in 5 months and PRN oajao Not available 09/30/2024 12:42:08 Reason for Referral Telephone Operator Referral for E ruption Pigmented rash of both LE Pigmented rash of both LE Referring Physician: Darshan Townsend, Internal Medicine, Encounter Date: 03/30/2024 Results Created Date Observation Date Name Description Value Unit Range Abnormal Flag Note LastModifiedBy Organization Detail LastModifiedTime 04/27/20 24 04/28/2024 LIPID PANEL cholesterol, total 161 mg/dL 100-19 9 Not Available [facility] ([facility]) [address] , [place], [address], 04/28/2024 08:33:33 04/27/20 24 04/28/2024 LIPID PANEL triglyceride s 63 mg/dL 0-149 Not Available [facility] ([facility]) [address] [facility], [place], [address], 04/28/2024 08:33:33 04/27/20 24 04/28/2024 LIPID PANEL HDL cholesterol 78 mg/dL >39 Not Available [facility] ([facility]) [address] [facility], [place], [address], 04/28/2024 08:33:33 04/27/20 24 04/28/2024 LIPID PANEL VLDL cholesterol mick 12 mg/dL 5-40 Not Available [facility] ([facility]) [address] [facility], [place], [address], 04/28/2024 08:33:33 04/27/20 24 04/28/2024 LIPID PANEL LDL chol calc ([facility]) 71 mg/dL 0-99 Not Available [facility] ([facility]) [address] [place], [address], 04/28/2024 08:33:33 04/27/20 24 04/28/2024 COMP. METAB OLIC PANEL (14) glucose 103 mg/dL 70-99 above high normal Not Available [facility] ([facility]) [address] [place], [address], 04/28/2024 08:33:34 04/27/20 24 04/28/2024 COMP. METAB OLIC PANEL (14) BUN 11 mg/dL 8-27 Not Available [facility] ([facility]) [address] [facility], [place], [address], 04/28/2024 08:33:34 04/27/20 24 04/28/2024 COMP. METAB OLIC PANEL (14) creatinine 0.68 mg/dL 0.57-1 .00 Not Available [facility] ([facility]) [address] [place], [address], 04/28/2024 08:33:34 04/27/20 24 04/28/2024 COMP. METAB OLIC PANEL (14) eGFR 95 mL/mi n/1.7 3 >59 Not Available [facility] ([facility]) [address] [facility] [place], [address], 04/28/2024 08:33:34 04/27/20 24 04/28/2024 COMP. METAB OLIC PANEL (14) BUN/creatini ne ratio 16 12-28 Not Available [facility] ([facility]) [address] [facility] [place], [address], 04/28/2024 08:33:34 04/27/20 24 04/28/2024 COMP. METAB OLIC PANEL (14) sodium 140 mmol/ L 134-14 4 Not Available [facility] ([facility]) [address] [facility] [place], [address], 04/28/2024 08:33:34 04/27/20 24 04/28/2024 COMP. METAB OLIC PANEL (14) potassium 4.6 mmol/ L 3.5-5. 2 Not Available [facility] ([facility]) [address] [facility] [place], [address], 04/28/2024 08:33:34 04/27/20 24 04/28/2024 COMP. METAB OLIC PANEL (14) chloride 101 mmol/ L 96-106 Not Available [facility] ([facility]) [address] [place], [address], 04/28/2024 08:33:34 04/27/20 24 04/28/2024 COMP. METAB OLIC PANEL (14) carbon dioxide, total 24 mmol/ L 20-29 Not Available [facility] ([facility]) [address] [place], [address], 04/28/2024 08:33:34 04/27/20 24 04/28/2024 COMP. METAB OLIC PANEL (14) calcium 10.0 mg/dL 8.7-10 .3 Not Available [facility] ([facility]) [address] [place], [address], 04/28/2024 08:33:34 04/27/20 24 04/28/2024 COMP. METAB OLIC PANEL (14) protein, total 7.2 g/dL 6.0-8. 5 Not Available [facility] ([facility]) [address] [place], [address], 04/28/2024 08:33:34 04/27/20 24 04/28/2024 COMP. METAB OLIC PANEL (14) albumin 4.8 g/dL 3.9-4. 9 Not Available [facility] ([facility]) [address] [facility] [place], [address], 04/28/2024 08:33:34 04/27/20 24 04/28/2024 COMP. METAB OLIC PANEL (14) globulin, total 2.4 g/dL 1.5-4. 5 Not Available [facility] ([facility]) [address] [facility] [place], [address], 04/28/2024 08:33:34 04/27/20 24 04/28/2024 COMP. METAB OLIC PANEL (14) bilirubin, total 0.3 mg/dL 0.0-1. 2 Not Available [facility] ([facility]) [address] [facility] [place], [address], 04/28/2024 08:33:34 04/27/20 24 04/28/2024 COMP. METAB OLIC PANEL (14) alkaline phosphatase 170 IU/L 44-121 above high normal Not Available [facility] ([facility]) [address] [facility] [place], [address], 04/28/2024 08:33:34 04/27/20 24 04/28/2024 COMP. METAB OLIC PANEL (14) AST (SGOT) 31 IU/L 0-40 Not Available [facility] ([facility]) [address] [facility] [place], [address], 04/28/2024 08:33:34 04/27/20 24 04/28/2024 COMP. METAB OLIC PANEL (14) ALT (SGPT) 27 IU/L 0-32 Not Available [facility] ([facility]) [address] [facility], [place], [address], 04/28/2024 08:33:34 04/27/20 24 04/28/2024 URINA LYSIS , ROUTI NE specific gravity 1.011 1.005- 1.030 Not Available [facility] ([facility]) [address] [facility], [place], [address], 04/28/2024 08:33:35 04/27/20 24 04/28/2024 URINA LYSIS , ROUTI NE pH 6.5 5.0-7. 5 Not Available [facility] ([facility]) [address] [facility], [place], [address], 04/28/2024 08:33:35 04/27/20 24 04/28/2024 URINA LYSIS , ROUTI NE urine-color YELLOW yellow Not Available [facility] ([facility]) [address] [facility], [place], [address], 04/28/2024 08:33:35 04/27/20 24 04/28/2024 URINA LYSIS , ROUTI NE appearance CLEAR clear Not Available [facility] ([facility]) [address] [facility], [place], [address], 04/28/2024 08:33:35 04/27/20 24 04/28/2024 URINA LYSIS , ROUTI NE WBC esterase NEGATI VE negati ve Not Available [facility] ([facility]) [address] [facility], [place], [address], 04/28/2024 08:33:35 04/27/20 24 04/28/2024 URINA LYSIS , ROUTI NE protein NEGATI VE negati ve/tra ce Not Available [facility] ([facility]) [address] [facility], [place], [address], 04/28/2024 08:33:35 04/27/20 24 04/28/2024 URINA LYSIS , ROUTI NE glucose 2+ negati ve abnormal Not Available [facility] ([facility]) [address] [facility], [place], [address], 04/28/2024 08:33:35 04/27/20 24 04/28/2024 URINA LYSIS , ROUTI NE ketones NEGATI VE negati ve Not Available [facility] ([facility]) [address] [facility], [place], [address], 04/28/2024 08:33:35 04/27/20 24 04/28/2024 URINA LYSIS , ROUTI NE occult blood NEGATI VE negati ve Not Available [facility] ([facility]) [address] [facility], [place], [address], 04/28/2024 08:33:35 04/27/20 24 04/28/2024 URINA LYSIS , ROUTI NE bilirubin NEGATI VE negati ve Not Available [facility] ([facility]) [address] [facility], [place], [address], 04/28/2024 08:33:35 04/27/20 24 04/28/2024 URINA LYSIS , ROUTI NE urobilinogen ,semi-qn 0.2 mg/dL 0.2-1. 0 Not Available [facility] ([facility]) [address] [place], [address], 04/28/2024 08:33:35 04/27/20 24 04/28/2024 URINA LYSIS , ROUTI NE nitrite, urine NEGATI VE negati ve Not Available [facility] ([facility]) [address] [facility], [place], [address], 04/28/2024 08:33:35 04/27/20 24 04/28/2024 URINA LYSIS , ROUTI NE microscopic examination COMMEN T Micro scopi c not indic ated and not perfo rmed. Not Available [facility] ([facility]) [address] [facility], [place], [address], 04/28/2024 08:33:35 04/27/20 24 04/27/2024 CBC, PLATE LET, NO DIFFE RENTI AL WBC 8.8 x10e3 /uL 3.4-10 .8 Not Available [facility] ([facility]) [address] [facility], [place], [address], 04/28/2024 08:33:36 04/27/2004/27/2024 CBC, PLATE LET, NO DIFFE RENTI AL RBC 5.00 x10e6 /uL 3.77-5 .28 Not Available [facility] ([facility]) [address] [facility], [place], [address], 04/28/2024 08:33:36 04/27/20 24 04/27/2024 CBC, PLATE LET, NO DIFFE RENTI AL hemoglobin 14.4 g/dL 11.1-1 5.9 Not Available [facility] ([facility]) [address] [facility], [place], [address], 04/28/2024 08:33:36 04/27/20 24 04/27/2024 CBC, PLATE LET, NO DIFFE RENTI AL hematocrit 44.6 % 34.0-4 6.6 Not Available [facility] ([facility]) [address] [facility], [place], [address], 04/28/2024 08:33:36 04/27/2004/27/2024 CBC, PLATE LET, NO DIFFE RENTI AL MCV 89 fL 79-97 Not Available [facility] ([facility]) [address] [facility], [place], [address], 04/28/2024 08:33:36 04/27/20 24 04/27/2024 CBC, PLATE LET, NO DIFFE RENTI AL MCH 28.8 pg 26.6-3 3.0 Not Available [facility] ([facility]) [address] [place], [address], 04/28/2024 08:33:36 04/27/20 24 04/27/2024 CBC, PLATE LET, NO DIFFE RENTI AL MCHC 32.3 g/dL 31.5-3 5.7 Not Available [facility] ([facility]) [address] [facility], [place], [address], 04/28/2024 08:33:36 04/27/20 24 04/27/2024 CBC, PLATE LET, NO DIFFE RENTI AL RDW 14.0 % 11.7-1 5.4 Not Available [facility] ([facility]) [address] [facility], [place], [address], 04/28/2024 08:33:36 04/27/20 24 04/27/2024 CBC, PLATE LET, NO DIFFE RENTI AL platelets 289 x10e3 /uL 150-45 0 Not Available [facility] ([facility]) [address] [facility], [place], [address], 04/28/2024 08:33:36 04/27/20 24 04/28/2024 VITAM IN [...] 1. IOM (Inst itute of Medic ine). 2010. Kenneth ry refer kalee charlotte es for calci um and D. Wilfred quevedo [place]: The Natio nal [facility] Press . 2. Vandana hanks [place], Binmichael wyatt [place], Vandana off-F errar i RODRIGUEZ, et al. Evalu ation , treat ment, and preve ntion of vitam in D defic iency : an Endoc rine Socie ty clini mick pract ice guide line. JCEM. 2010; 96(7) :1911 -30. Not Available [facility] ([facility]) [address] [facility], [place], [address], 04/28/2024 08:33:37 10/07/19 24 07/20/2023 jose metry , [facility] hodil ation No observ ation record ed. arabella Not Available 12/20 17:15:47 10/16/19 24 10/15/2023 LDCT, chest , for lung cance r kristinae sophia No observ ation record ed. [address], [address], 10/27/2023 12:57:26 02/11/20 24 02/02/2024 PFT, compl ete No observ ation record ed. [facility] (Resp Services) [address] [place] [address], [address], 04/06/2024 10:26:29 02/15/20 24 02/15/2024 MAMMO , tess cortes, digit al, bilat eral No observ ation record ed. [address], [address], 03/30/2024 12:26:38 04/06/20 24 01/31/2024 jose metry , [facility] hodil ation No observ ation record ed. [facility] [place] (Cardiopulmon guerda Services) [address] [facility], [place], [address], 09/30/2024 12:24:44 09/27/19 25 09/22/2024 DEXA No observ ation record ed. [facility] [address], [place], [address], 10/04/2024 12:04:53 Result Notes None recorded. Problems Name Problem SNOMED Code Status Onset Date Resolution Date Notes Provider Name and Address Organization Details Recorded Time Colonoscopy declined 0434137214277 00 Active 2016 Darshan Townsend MD Attn: Robert myers,[address] [place], [address], [place] [facility] 7 11:35:45 Solitary nodule of lung 654857732 Active 2017 Darshan Townsend MD Attn: Robert myers,[address] [place], [address], [place] [facility] 8 14:03:30 Dependence on supplementa l oxygen 762510002791 Active 2018 Darshan Townsend MD Attn: Robert myers,[address] [place], [address] [facility] 3 12:52:30 Memory impairment 798039141 Active 2018 Darshan Townsend MD Attn: Robert myers,[address] [place], [address] [facility] 9 14:01:23 History of calculus of kidney 535370108 Active 2018 Darshan Townsend MD Attn: Robert myers,[address] [place], [address] [facility] 9 14:01:24 Pneumococca l vaccination declined 427043889 Active 2018 Darshan Townsend MD Attn: Robert myers,[address] [place], [address] [facility] 9 14:03:02 Influenza vaccination declined 881688805 Active 2018 Darshan Townsend MD Attn: Robert [address]ers[address] [place], [address], [place] [facility] 9 14:03:11 Stenosis of interverteb ral foramina 600217982050 Active 2018 Darshan Townsend MD Attn: Robert louis,[address] [facility], [place], [address], [place] [facility] 9 13:59:07 Congenital stenosis of cervical canal 53657803 Active 2018 Darshan Townsend MD Attn: Robert myers,[address] [facility], [place], [address], [place] [facility] 9 13:59:08 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 960158073 Active 2018 Darshan Townsend MD Attn: Robert myers,[address] [place], [address], [place] [facility] 9 13:59:11 Tobacco dependence in remission 977123531 Active 2018 Darshan Townsend MD Attn: Robert myers,[address] [facility], [place], [address], [place] [facility] 9 18:29:47 Acute exacerbatio n of chronic obstructive pulmonary disease 629574205 Active 2018 Darshan Townsend MD Attn: Robert myers,[address] [facility], [place], [address], [place] [facility] 9 14:02:44 Diastolic dysfunction 0123537 Active 2019 Darshan Townsend MD Attn: Robert myers,[address] [facility], [place], [address], [place] [facility] 0 12:11:54 Malignant tumor of lung 847961893 Active 2019 Darshan Townsend MD Attn: Robert myers,[address] [place], [address], [place] [facility] 0 12:02:41 Edema of lower extremity 066855700 Active 2021 Darshan Townsend MD Attn: Accountin g,[address] [facility], [place], [address], [place] [facility] 2 13:17:26 Tobacco user 757394768 Active Darshan Townsend MD Attn: Accountin g,[address] [facility], [place], [address], [place] [facility] 5 12:03:25 Osteopenia 241694536 Active 2024 Darshan Townsend MD Attn: Jossin g,[address] [facility], [place], [address], [place] [facility] 5 12:28:20 SARS-CoV-2 mRNA vaccine declined 1424793356 Active 2024 Darshan Townsend MD Attn: Accountin g,[address] [facility], [place], [address], [place] [facility] 5 14:14:02 Impaired fasting glycemia 367518168 Active 2024 Darshan Townsend MD Attn: Accountin g,[address] [facility], [place], [address], [place] [facility] 5 13:41:07 Numbness 23289767 Active Darshan Townsend MD Attn: Jossin g,[address] [facility], [place], [address], [place] [facility] 4 11:14:07 Headache 28786241 Active Darshan Townsend MD Attn: Accountin g,[address] [facility], [place], [address], [place] [facility] 4 11:14:07 Pure hypercholes terolemia 554891383 Active Darshan Townsend MD Attn: Robert g,[address] [facility], [place], [address], [place] [facility] 5 12:48:13 Chronic obstructive pulmonary disease 25353840 Active Darshan Townsend MD Attn: Robert g,[address] [place], [address] [facility] 3 12:52:26 Coronary arterioscle rosis in [place] artery 1854074667248 Active Darshan Townsend MD Attn: Robert louis,[address] [place], [address] [facility] 5 13:58:29 Vitamin D deficiency 03247581 Active Darshan Townsend MD Attn: Robert louis,[address] [place], [address] [facility] 5 12:28:12 Obstructive sleep apnea syndrome 65367089 Active Darshan Townsend MD Attn: Robert louis,[address] [place], [address] [facility] 5 13:58:29 Pharyngitis 519718871 Active Darshan Townsend MD Attn: Robert louis,[address] [place], [address] [facility] 6 13:56:35 On examination - hoarseness Active Darshan Townsend MD Attn: Robert louis,[address] [place], [address] [facility] 6 13:25:18 Notes:Numbness Problem Notes None recorded. Procedures Surgical History Date Name Laterality Status Provider Name and Address Organization Details Recorded Time Hysterectomy completed Darshan Townsend MD Attn: Accounting,[address] [place], [address], [place] [facility] 12/12/2015 12:32:03 Total Abdominal Hysterectomy completed Darshan Townsend MD Attn: Accounting,[address] [place], [address], [place] [facility] 07/27/2017 11:24:19 Hernia Repair completed November Julito aguilar [place] - [facility] 07/24/2014 10:40:39 Breast Surgery completed November Vishal bob [place] [facility] 07/24/2014 10:40:39 Dilation and Curettage completed November AlfonzoVIKAS [place] - [facility] 07/24/2014 10:40:39 Imaging Results Imaging Date Name Status LastModified by Organization Details LastModified Time 07/20/2023 spirometry, pre and post bronchodilation completed uriellindanadine Information not available 12/21/2023 17:15:47 10/15/2023 LDCT, chest, for lung cancer screening completed [address], [address], 10/27/2023 12:57:26 02/02/2024 PFT, complete completed [facility] (Resp Services) [address] [place] [address], [address], 04/06/2024 10:26:29 02/15/2024 MAMMO, screening, digital, bilateral completed [address], [address], 03/30/2024 12:26:38 01/31/2024 spirometry, pre and post bronchodilation completed [facility] [place] (Cardiopulmonar y Services) [address] [place], [address], 09/30/2024 12:24:44 09/22/2024 DEXA completed [address], [address], 10/04/2024 12:04:53 Procedure Notes None recorded. Medical Equipment None Reported. Allergies Allergen ID Allergen Name Allergen Category Reaction Reaction Severity Criticality Documentation Date Start Date Code Code System Note Provider Name and Address Organization Details Recorded Time 402286 Wixela medicatio n other severe Not available 07/08/20192018 74796 06 RxNorm Pt. state d it felt like her tonsi ls swell ed up. Not Available Not Available Not Available 768218 Spiriva medicatio n other severe Not available 07/08/2019 47187 5 RxNorm Pt. state d it felt like her tonsi ls swell ed up. Not Available Not Available Not Available 6313 Demerol medicatio n Not available Not available Not available 07/24/2014 35939 1 RxNorm Not Available Not Available Not Available 6314 acetamino phen / oxycodone medicatio n Not available Not available Not available 07/24/2014 26585 3 RxNorm Not Available Not Available Not [...] for 84 days, for Low Vitamin D. active Not Available Not Available No t Available levofloxa alma 500 mg tablet 1.5 tablets [...] e 50 mcg/actua tion nasal spray,isabelle pension Beeson 2 sprays every day by nasal route [...] Available Not Available Not Available azithromy alma 500 mg tablet 07/25 completed Not Available [...] Not Available Not Available No t Available calcium 600 mg (as carbonate )-vitamin D3 10 mcg (400 unit) tablet Take 1 tablet every day by oral route as directed for 90 days, for Osteopen ia. active Not Available Not Available No t Available Symbicort 80 mcg-4.5 mcg/actua tion HFA aerosol inhaler 07/25 completed Not Available Not Available Not Available budesonid e-formote rol HFA 160 mcg-4.5 mcg/actua tion aerosol inhaler INHALE 2 PUFFS BY MOUTH TWICE DAILY DIRECTED active Not Available Not Available No t Available Combivent Respimat 20 mcg-100 mcg/actua tion [...] that Not Available Not Available Not Available Wixela Inhub 250 mcg-50 mcg/dose powder for inhalatio n INHALE 1 PUFF BY MOUTH TWICE DAILY FOR 30 DAYS 03/30 completed It was leaving powder in the back of my throat Not Available Not Available Not Available Wegovy 0.25 mg/0.5 mL subcutane ous pen injector 09/30 completed Not Available Not Available Not Available Vitals Date Recorded Body height Body mass index (BMI) Body weight Oxygen saturation Oxygen saturation in Arterial blood by Pulse oximetry Inhaled oxygen flow rate Heart rate Respiratory rate Systolic blood pressure Diastolic blood pressure Provider Name and Address Organization Details Last Updated DateTime 4 152.4 cm 30.1 kg/m2 05403.2 2 g 97 % 97 % 2 L/min 68 /min 18 /min 120 mm[Hg] 76 mm[Hg] Hue Trevino MA [facility] 4 12:19:33 Date Recorded Body height Pain [...] 152.4 cm 0 97.7 [degF] 29.3 kg/m2 49598.8 6 g 18 /min 96 % 96 % 2 L/min 64 /min 132 mm[Hg] 62 mm[Hg] Olga Anglin LPN [facility] 4 14:22:03 Date Recorded Body height Body mass index (BMI) Body weight Heart rate Respiratory rate Oxygen saturation Oxygen saturation in Arterial blood by Pulse oximetry Inhaled oxygen flow rate Systolic blood pressure Diastolic blood pressure Provider Name and Address Organization Details Last Updated DateTime 4 152.4 cm 29.3 kg/m2 33705.8 6 g 72 /min 16 /min 95 % 95 % 2 L/min 114 mm[Hg] 70 mm[Hg] Hue Trevino MA [facility] 4 12:17:48 Date Recorded Body height Body mass index (BMI) Body weight Body temperature Pain severity - 0-10 verbal numeric rating [Score] - Reported Heart rate Oxygen saturation Oxygen saturation in Arterial blood by Pulse oximetry Inhaled oxygen flow rate Respiratory rate Systolic blood pressure Diastolic blood pressure Provider Name and Address Organization Details Last Updated DateTime 4 152.4 cm 29.5 kg/m2 90384.4 5 g 97 [degF] 0 66 /min 96 % 96 % 2 L/min 18 /min 126 mm[Hg] 6 mm[Hg] Olga Anglin LPN [facility] 4 12:36:31 Date Recorded Body height Body mass index (BMI) Body weight Heart rate Oxygen saturation Oxygen saturation in Arterial blood by Pulse oximetry Inhaled oxygen flow rate Body temperature Respiratory rate Systolic blood pressure Diastolic blood pressure Provider Name and Address Organization Details Last Updated DateTime 5 152.4 cm 29.1 kg/m2 79703.6 2 g 68 /min 95 % 95 % 2 L/min 97.7 [degF] 18 /min 140 mm[Hg] 76 mm[Hg] Hue Trevino MA [facility] 5 12:10:22 Social History Question Answer Notes LastModified by [employer] Details LastModified Time Tobacco Smoking Status Former Smoker Hue Trevino MA [facility], [facility] 12/14/2018 12:11:47 Do You Have An Advance [...] Do You Have A Medical Power Of Cloth Spreader Screen Printing? No Information not available 12/27/2021 What Was [...] Response Coronary Artery Disease Y Other N High Blood Pressure N Atrial Fibrillation N Kidney or Bladder Problems N Thyroid Problems N GI Problems N Depression N COPD Y Blood Clots N Skin Problems N Anemia N Heart Attack ([place]) N Anxiety Disorder N Diabetes N Muscle, [...] vaccine, UNSPECIFIED 1 completed Hue Trevino MA [facility], [place] [facility] 11/01/2020 10:08:42 SARS-COV-2 (COVID-19) vaccine, UNSPECIFIED 1 completed Darshan Townsend MD Attn: Accounting,[address] [place], [place], [address] [place] [address], [place] [facility] 01/16/2021 15:50:58 COVID-19, mRNA, LNP-S, PF, 30 mcg/0.3 mL dose 2 completed Darshan Townsend MD Attn: Accounting[address] [place], [address], [place] [facility] 04/22/2022 12:47:38 COVID-19, mRNA, LNP-S, PF, 30 mcg/0.3 mL dose 1 completed Darshan Townsend MD Attn: Accounting[address] [place], [place], [address] [place] [address] [place] [facility] 04/22/2022 12:47:38 Pneumococcal conjugate PCV20, polysaccharide [id number] conjugate, adjuvant, PF 2 completed Darshan Townsend MD Attn: Accounting,[address], [place], [address], [place] [facility] 10/20/2022 12:37:37 Tdap 3 completed Darshan Townsend MD Attn: Accounting,[address], [place], [address], [place] [facility] 07/25/2015 12:31:55 Past Encounters Encounter ID Performer Location Encounter Start Date Encounter Closed Date Diagnosis/Indication Diagnosis SNOMED-CT Code Diagnosis ICD10 Code Diagnosis Note [id number] [facility] (Adult Med) [address] [place] [address] 07/24/2014 10:17:08 07/24/2014 11:20:24 Numbness [id number] Intermitte nt right sided facial numbness with a negative CT/Carotid duplex exam. Will need an evaluation by the neurologis t Headache 02861737 No spe ech difficulti es or facial weakness noted, CT brain negative 05/22/14, Carotids normal 06/18/14 Pure hypercholesterolemia 561535372 Chronic ob structive pulmonary disease 31710708 Scheduled to see the pulmonolog ist, refused the Influenza vaccine. [id number] [facility] (Adult Med) [address] [place] [address] 10/19/2014 11:16:59 10/19/2014 12:10:23 Pure hypercholesterolemia 749709201 Her LDL is worse at 138, despite her compliance with 40mg po daily of Atorvastat in, I will attempt to push the dose to 80mg po QHS, side effects were discussed. Labs in 6 weeks Chronic ob structive pulmonary disease 21836217 Scheduled to see the pulmonolog ist, however she says that she could not get a hold of them. Pneumovax and Flu vaccine were highly recommende d, she has refused both, despite the extensive discussion regarding the benefits. Z-messi and a short course of Prednisone Tobacco user 662150025 C essation was advised [id number] [facility] (Adult Med) [address] [place] [address] 01/30/2015 11:44:52 01/30/2015 14:41:29 Pure hypercholesterolemia 571524540 Her labs are much better on 80mg of Atorvastat in, Chronic ob structive pulmonary disease 05895898 Following up with Dr. Fernando, she is now on home oxygen 1.5-2L She has refused both Pneumonia vaccines Note from pulmonolog ist Screening for cancer 64518162 She was offered a colonoscop y, she has once again refused General ex amination of patient 636220578 Screening mammography 48377767 [id number] MD Philip Lang (Adult Med) [address] [place] [address] 07/25/2015 11:46:05 07/25/2015 14:44:28 Coronary arteriosclerosis in [place] artery 6866298693 107 I25.10 Z51.81 Recent cath at , 35% occlussion . I will call for a copy of the cardiac cath. This was an extended visit Chronic ob structive pulmonary disease 54980839 J44.[address] Sosa, she is now on home oxygen 1.5-2L She has once again refused both Pneumonia vaccines as well as the Influenza vaccine. Vitamin D deficiency 347 79340 E55.9 Obstructiv e sleep apnea syndrome 34836544 G47.33 She was seen by Dr. Sarkar, she has issues with tolerating the mask. [id number] MD Philip Lang (Adult Med) [address] [place] [address] 11/21/2015 11:38:40 11/21/2015 12:39:00 Pharyngitis 462372919 J02.9 Sore throat and right sided neck pain with movement since which has not changed despite OTC agents and gargling with salt water. [id number] MD Philip Lang (Adult Med) [address] [place] [address] 12/12/2015 11:37:28 12/12/2015 12:35:57 On examination - hoarseness 486700125 R49.8 The pain has resolved, however her voice still varies from being hoarse to having no voice at all. This has been going on for 6 weeks, we will seek the opinion of the ENT surgeon. She was reminded to continue to rinse her mouth after using her Symbicort inhaler. [id number] MD Philip Lang (Adult Med) [address] [place] [address] 0 06/09/2016 11:59:26 06/09/2016 13:32:51 Severe chronic obstructive pulmonary disease 413129078 J44.9 She cannot tolerate Incruse, I will attempt a PA. In the interim, she should switch to the Spiriva Respimat and I have given her a sample. Immunization refused 275 691611 Z28.20 Discussed Impaired mobility 207935 05 Z74.09 I need a copy of her latest PFT from last week, her FEV1 has to be less than 1 second. I am sure that it is, we however must have documentat ion to support this. Screening mammography 24 121007 Z12.31 Chronic hoarseness 88069 66013 105 R49.0 She was seen by ENT, a copy of the note will be useful [id number] MD Philip Lang (Adult Med) [address] [place] [address] 0 07/21/2016 11:27:22 07/21/2016 12:14:16 Acute bronchitis 90614032 J20.9 Coronary arteriosclerosis in [place] artery 5218163386 107 Z51.81 [id number] MD Philip Lang (Adult Med) [address] [place] [address] 01/19/2017 11:04:34 01/19/2017 11:59:42 Tobacco dependence in remission 669893596 F17.201 LDCT needed Chronic ob structive pulmonary disease 82918578 J44.9 She needs a smaller and more portable oxygen tank, her last order was from her last pulmonolog ist, she should contact [facility] and have them send it to her new pulmonolog ist, Dr. Beatty or to me. Acute bronchitis 7267561 2 J20.9 Ecchymosis 860550614 R58 Coronary arteriosclerosis in [place] artery 9798122282 107 Z51.81 Benign ess ential hypertension 2209955 I10 [id number] MD Philip Lang (Adult Med) [address] [place] [address] 07/27/2017 11:08:54 07/27/2017 12:03:18 Essential hypertension 96071544 I10 Screening for malignant neoplasm of breast 439834102 Z12.31 Colonoscopy declined 297 0951190 02936 Z53.20 Diabetes m ellitus screening 983012428 Z13.1 Pharyngitis 408020868 J0 2.9 Disorder o f lipid metabolism 149360493 E78.9 Solitary n odule of lung 135083415 R91.1 Immunization refused 275 445310 Z28.20 She refused despite the fact that I strongly recommende d the Flu vaccine. [id number] MD Philip Lang (Adult Med) [address] [place] [address] 01/25/2018 11:31:32 01/26/2018 08:52:53 Colonoscopy declined 7325294595 65902 Z53.20 Cough 51074432 R05 Edema of l ower extremity 896542550 R60.0 This may be due to her CCB Impaired mobility 411366 05 Z74.09 I need a copy of her latest PFT from in [place] , the note from her pulmonolog ist suggests that her last FEV1 was 0.61 L in 2016 Dyspnea 511631445 R06.02 Swelling o f left upper limb 4266952490 6040909 R22.32 Malaise and fatigue 2717 58782 R53.81 Coronary arteriosclerosis in [place] artery 6976861334 107 Z51.81 Solitary n odule of lung 888091615 R91.1 Stable [id number] Darshan Townsend MD [facility] (Adult Med) [address] [place] [address] 03/12/2018 11:49:44 03/12/2018 12:26:00 Chronic obstructive pulmonary disease 46022632 J44.9 Disorder o f lipid metabolism 681572728 E78.9 Screening for malignant neoplasm of breast 756476540 Z12.31 [id number] MD [facility] Lang (Adult Med) [address] [place] [address]3072[address] 0 09/10/2018 11:52:45 09/13/2018 08:29:13 Neck pain 85278722 M54.2 Blurring o f visual image 413614535 H53.8 Nicotine dependence 5629 4008 F17.200 Diabetes m ellitus screening 841408679 Z13.1 [id number] Darshan Townsend MD [facility] (Adult Med) [address] [place] [address] 0 10/21/2018 12:17:17 10/21/2018 13:05:16 Degeneration of cervical intervertebral disc 21674304 M50.30 Improvemen t noted but her pain persists in the posterior area. She denies any radicular symptoms. The xray suggests NFS and DDD. Coronary arteriosclerosis in [place] artery 8748647237 107 Z51.81 Bisoprolol is not on her plan's drug formulary, it was changed to Metoprolol . This was discussed in detail. Screening for disorder 243716222 Z13.9 [id number] MD [facility] (Adult Med) [address] [place] [address] 12/14/2018 11:53:18 12/14/2018 13:13:58 Blood in urine 28470222 R31.9 Intermitte nt confusion 906615472 R41.0 Edema of l ower extremity 380733403 R60.0 Dependence on supplemental oxygen 8557611643 07 Z99.81 No smokingTit rate Oxygen down to 2.5L/min, then 2L/min as long as her saturation is 90% or above. Memory impairment 350059 006 R41.3 Chronic ob structive pulmonary disease 54381353 J44.9 History of calculus of kidney 555518762 Z87.442 Pneumococc al vaccination declined 761923082 Z28.21 Influenza vaccination declined 662510865 Z28.21 Blurring o f visual image 849201090 H53.8 Previously referred in August, [id number] MD [facility] (Adult Med) [address] [place] [address] 0 01/25/2019 11:56:23 01/25/2019 12:37:13 Stenosis of intervertebral foramina 8449110197 09 M99.9 Congenital stenosis of cervical canal 42137659 Q51.828 Stenosis o f spinal canal due to intervertebral disc 203178748 M99.59 Memory impairment 643328 006 R41.3 The labs and imaging do not explain her symptomsAd dendumNeur ology evaluation [id number] MD [facility] (Adult Med) [address] [place] [address]58[address] 0 06/10/2019 15:59:18 06/13/2019 08:48:21 Body mass index 25-29 - overweight 766480777 Z68.26 Follow-up visit 59914258 9 Z09 Influenza vaccination declined 153398700 Z28.21 Discussed in detail, she continues to refuse Tobacco de pendence in remission 603261930 F17.201 LDCT needed Severe chr onic obstructive pulmonary disease 042714263 J44.9 Resume home health, PT, etcThe PFT done 04/26/2019 suggests Very Severe Obstructio n , the complete report has been requested. [id number] MD [facility] Lang (Adult Med) [address] [place] [address]4714[address] 0 07/27/2019 11:55:30 07/27/2019 12:42:40 Chronic obstructive pulmonary disease 61441044 J44.9 t Acute exac erbation of chronic obstructive pulmonary disease 019998929 J44.1 [id number] MD [facility] (Adult Med) [address] [place] [address]39[address] 0 08/18/2019 12:00:25 08/18/2019 12:45:56 Chronic obstructive pulmonary disease 34706922 J44.9 Stable at this timeI will have her hold on to a script for Azithromyc in and Prednisone , I have explained to her that she clearly does not need it now. Nausea 774490027 R11.0 Intermitte nt Vitamin D deficiency 347 59948 E55.9 Long-term drug therapy 173027297 Z79.899 Screening for malignant neoplasm of breast 917115937 Z12.31 [id number] FEDERICO HUNTER NP [facility] [address] [address] 08/23/2019 11:53:26 09/13/2019 12:28:27 Chronic obstructive pulmonary disease 28641058 J44.9 -Records request for PFTs, 6 min walk -Continue MDI teaching/t echnique -COPD education -Pulmonary rehab program discussed, education on program given. Offered pulmonary rehab referral, pt declined at this time. Obstructiv e sleep apnea syndrome 33932469 G47.33 -Request records for sleep study. Pt previously dx with LOUIS, she refuses any further workup and states she will not use a cpap machine. educated pt in importance of CPAP therapy and risks of untreated LOUIS. pt verbalized understand ing, continues to refuse. Former hea vy tobacco smoker 5669277292 05334 Z87.891 LDCT, Continue cessation Chronic re spiratory failure 31263077 J96.10 On 2L supplement al oxygen at all times. Essential hypertension 57387548 I10 Continue Medication s. Continue to monitor blood pressure. Encourage low salt diet and exercise. Edema of l ower extremity 924699891 R60.0 mild swelling to left foot. Continue medication s, Reports will see cardiology soon. [id number] FEDERICO HUNTER NP [facility] [address] [address] 01/10/2020 09:23:26 01/26/2020 16:42:30 Chronic obstructive pulmonary disease 11763015 J44.9 - Gold 4C, mMRC 3 -Continue MDI teaching/t praveen- Symbicort , in need of additional anticholin ergic inhaler. She declines powder inhaler. -COPD education -Pulmonary rehab program discussed, she is interested and would like to discuss more at next visit. Obstructiv e sleep apnea syndrome 03827197 G47.33 Dx with LOUIS in 2014. Stopped cpap therapy in past due to mask comfortIn need of retesting for dx and cpap equipment if needed , she would like to revisit and order testing at next appointmen t.sleep hygiene discussed Former hea vy tobacco smoker 1285962403 21742 Z87.891 LDCT ordered at previous visit, awaiting completion . Continue cessation Chronic re spiratory failure 27024382 J96.10 On 2L supplement al oxygen at rest/sleep , 3L with activityCo mpliant and benefiting from usage Essential hypertension 24511741 I10 Managed in primary care. Continue to monitor blood pressure. Encourage low salt diet and exercise. [id number] MD Philip Lang (Adult Med) [address] [place] [address] 0 02/21/2020 11:40:32 02/21/2020 12:58:19 Diastolic dysfunction 6522583 I51.9 DiscussedT TE 01/30/2020S T 04/06/2019 Screening for malignant neoplasm of colon 629452390 Z12.11 Edema of l ower extremity 976796830 R60.0 She should double up on her Lasix Chronic ob structive pulmonary disease 59191636 J44.9 She will be following up with her pulmonolog ist Long-term drug therapy 394803455 Z79.899 Coronary arteriosclerosis in [place] artery 1065319818 107 Z51.81 Dyspnea 293925540 R06.02 Intermitte nt palpitations 022374408 R00.2 Localized swelling of left forearm 9674150991 9031661 R22.32 Chronic soft tissue swelling Pain of le ft shoulder joint 2750008741 2198072 M25.512 Malaise and fatigue 2717 56774 R53.81 [id number] PRASHANT WU NP [facility] [address] [place] [address] 03/05/2020 10:00:51 03/06/2020 08:26:02 Viral screening 595173755 Z11.59 [id number] FEDERICO HUNTER NP [facility] [address] [place] [address] 04/04/2020 12:13:15 04/11/2020 16:39:58 Chronic obstructive pulmonary disease 09899346 J44.9 Pfts done 05/05: severe obstructio n [...] Combivent, albuterol as needed, duonebs Stop atrovent -MDI teaching/t echnique -COPD education Chronic re spiratory failure 10247652 J96.10 On 2L supplement al oxygen at rest/sleep , 3L with activityCo mpliant and benefiting from usage Obstructiv e sleep apnea syndrome 65956037 G47.33 Dx with LOUIS in 2014. Stopped [...] little more .Sleep hygiene discussed Former hea pennyy tobacco smoker 6815790871 51047 Z87.891 Continue cessation Essential hypertension 96851069 I10 Managed in primary care. Continue to monitor blood pressure. Encourage low salt diet and exercise. Malignant tumor of lung 965822632 C34.[address] done 03/09/20 with increased metabolic activity to RUL mass. Referred to Oncology and seen 03/20/20. Clinical staging 1A2, will be seen by Dr. Walter carrillo for stereotact ic radio surgery, she is not a candidate for CT guided biopsy due to high risk for Pneumothor ax. He first treatment is scheduled for 04/09/20. [id number] Darshan Townsend MD [facility] (Adult Med) [address] [place] [address] 04/05/2020 08:12:13 04/06/2020 15:01:06 Malignant tumor of lung 376240650 C34.90 She is following up with the Oncologist and her pulmonolog istRadiati on is scheduled with Dr Walter Carrillo Pain of le ft shoulder joint 4099896413 1818608 M25.512 Some improvemen t with Prednisone from Dr Zion salamanca [id number] FEDERICO HUNTER NP [facility] [place] [address] 06/04/2020 11:56:39 06/05/2020 09:49:39 Chronic obstructive pulmonary disease 45401180 J44.9 Continue symbicort, atrovent, albuterol and nebs. Declines anticholin ergics, states she does not tolerate well. Awaiting PFT, 6 min walk Malignant tumor of lung 377987651 C34.[address] Walter carrillo for stereotact ic radiosurge ry. She has had 3 treatments and has tolerated well. Chronic re spiratory failure 55623668 J96.10 Continue supplement al O2, 2L O2 NC at rest/sleep , 3L with activityCo mpliant and benefiting from usage Obstructiv e sleep apnea syndrome 13854870 G47.33 Declines cpap therapy ro retesting Former hea vy tobacco smoker 8583654911 68967 Z87.891 Continue cessation Essential hypertension 73810732 I10 Managed in primary care. Continue to monitor blood pressure. Encourage low salt diet and exercise. Dyspnea 842277744 R06.00 Reactive a irway disease 0058701112 06 J45.909 Continue MID [id number] Jamie Snell MD [facility] [address] [place] [address] 09/07/2020 11:44:48 09/07/2020 13:10:34 Chronic obstructive pulmonary disease 39416600 J44.9 Continue symbicort, atrovent, albuterol and nebs. Chronic re spiratory failure 51002726 J96.10 Continue supplement al O2, 2L O2 NC at rest/sleep , 3L with activityCo mpliant and benefiting from usage Reactive a [place] disease 2385946225 06 J45.909 Continue MID Malignant tumor of lung 355712962 C34.[address] Walter carrillo for stereotact ic radiosurge ry. She has had 3 treatments and has tolerated well. Obstructiv e sleep apnea syndrome 13828447 G47.33 Declines cpap therapy ro retesting Former hea vy tobacco smoker 2569663443 91422 Z87.891 Continue cessation Essential hypertension 00287572 I10 Managed in primary care. Continue to monitor blood pressure. Encourage low salt diet and exercise. [id number] Darshan Townsend MD [facility] (Adult Med) [address] [place] [address] 11/01/2020 08:29:21 11/02/2020 09:18:34 Screening for malignant neoplasm of breast 100214891 Z12.31 Medication monitoring 39 0569393 Z51.81 Malignant tumor of lung 856372679 C34.90 She is following up with the Oncologist and her pulmonolog ist She has an appointmen t with the Radiation oncologist , Dr Walter Carrillo HIV screening 049815480 Z11.4 [id number] Jamie Snell MD [facility] [address] [place] [address] 12/07/2020 11:49:53 12/10/2020 15:53:31 Chronic obstructive pulmonary disease 72314805 J44.9 Continue symbicort, atrovent, albuterol and nebs. Chronic re spiratory failure 83466339 J96.10 Continue supplement al O2, 2L O2 NC at rest/sleep , 3L with activity Compliant and benefiting from usage Reactive a [place]way disease 6238486227 06 J45.909 Continue MID Malignant tumor of lung 950089159 C34.[address] Walter carrillo for stereotact ic radiosurge ry. Obstructiv e sleep apnea syndrome 05441768 G47.33 Declines cpap therapy ro retesting Former hea vy tobacco smoker 1684543821 84223 Z87.891 Continue cessation Essential hypertension 18542072 I10 Managed in primary care. Continue to monitor blood pressure. Encourage low salt diet and exercise. Muscle pain 94900574 M79 .10 Tylenol Motrin Heat patch cxr [id number] MD [facility] (Adult Med) [address] [place] [address] 01/16/2021 15:23:37 01/16/2021 16:25:18 Solitary nodule of lung 747562327 R91.1 Stable Colonoscopy declined 915 6572095 19071 Z53.20 Screening for malignant neoplasm of colon 580380724 Z12.11 Chest wall pain 57922218 6 R07.89 [id number] MD [facility] (Adult Med) [address] [place] [address] 01/30/2021 15:49:09 01/31/2021 16:23:07 Chest wall pain 211023808 R07.89 Essential hypertension 34927900 I10 Bronchitis 96210588 J40 [id number] Jamie Snell MD [facility] [address] [place] [address] 03/08/2021 11:49:58 03/08/2021 13:50:29 Chronic obstructive pulmonary disease 16801613 J44.9 Continue symbicort, atrovent, albuterol and nebs as prescribed Chronic re spiratory failure 12184943 J96.10 Continue supplement al O2, 2L O2 NC at rest/ activity Compliant and benefiting from usageOrder ing new portable O2, battery not holding charge Reactive a irway disease 8574828996 06 J45.909 Continue MDI Malignant tumor of lung 702869830 C34.[address] Walter carrillo for stereotact ic radiosurge ry. Obstructiv e sleep apnea syndrome 35989085 G47.33 Declines cpap therapy ro retesting Former hea vy tobacco smoker 9622704770 45472 Z87.891 Continue cessation Essential hypertension 31383674 I10 Managed in primary care. Continue to monitor blood pressure. Encourage low salt diet and exercise. [id number] Darshan Townsend MD [facility] (Adult Med) [address] [place] [address] 03/13/2021 11:46:52 03/15/2021 07:11:25 Pure hypercholesterolemia 198770319 E78.00 Continue 80mg of Atorvastat in, Benign hypertension 1072 5009 I10 Chest wall pain 52869755 6 R07.89 Medication monitoring 39 5316167 Z51.81 [id number] Darshan Townsend MD [facility] (Adult Med) [address] [place] [address] 0 04/19/2021 11:49:27 04/23/2021 05:20:19 Bronchitis 15186845 J40 Impaired f asting glycemia 675558264 R73.01 Immunization advised 310 914157 Z71.9 [id number] Jamie Snell MD [facility] [address] [address] 06/07/2021 11:44:58 06/14/2021 06:38:02 Chronic obstructive pulmonary disease 86774921 J44.9 Continue symbicort, atrovent, albuterol and nebs as prescribed Chronic re spiratory failure 40834968 J96.10 Continue supplement al O2, 2L O2 NC at rest/ activity Compliant and benefiting from usageOrder ing new portable O2, battery not holding charge Reactive a irway disease 4619474121 06 J45.909 Continue MDI Malignant tumor of lung 784384976 C34.[address] Walter carrillo for stereotact ic radiosurge ry. Obstructiv e sleep apnea syndrome 96054071 G47.33 Declines cpap therapy ro retesting Former hea vy tobacco smoker [id number] 98243 Z87.891 Continue cessation Essential hypertension 96792270 I10 Managed in primary care. Continue to monitor blood pressure. Encourage low salt diet and exercise. [id number] Jamie Snell MD [facility] [address] [place] [address] 09/13/2021 11:57:15 09/13/2021 13:18:51 Chronic obstructive pulmonary disease 65185344 J44.9 Continue symbicort, atrovent, albuterol and nebs as prescribed Chronic re spiratory failure 10665632 J96.10 Continue supplement al O2, 2L O2 NC at rest/ activity Compliant and benefiting from usageAmeri can home DME she is not satisfied, getting run around regarding battery Reactive a irway disease 4690671035 06 J45.909 Continue MDI Malignant tumor of lung 156412787 C34.[address] Walter carrillo for stereotact ic radiosurge ry. Obstructiv e sleep apnea syndrome 23323374 G47.33 continues to decline cpap therapy Former hea vy tobacco smoker [id number] 59281 Z87.891 Continue cessation Essential hypertension 88859808 I10 Managed in primary care. Continue to monitor blood pressure. Encourage low salt diet and exercise. [id number] Darshan Townsend MD [facility] (Adult Med) [address] [place] [address] 10/17/2021 11:59:14 10/17/2021 12:55:41 Coronary arteriosclerosis in [place] artery 8081127456 107 Z51.81 Edema of l ower extremity 032250897 R60.0 She should use her Lasix PRN only Immunization advised 310 289814 Z71.9 Follow-up visit 85649788 9 Z09 [id number] Jamie Snell MD [facility] [address] [place] [address] 12/27/2021 11:48:29 01/01/2022 08:41:31 Chronic obstructive pulmonary disease 60270214 J44.9 StableCont inue symbicort, atrovent, albuterol and nebs as prescribed Chronic re spiratory failure 58913431 J96.10 Continue supplement al O2, 2L O2 NC at rest/ activity Compliant and benefiting from usageAmeri can home DME she is not satisfied, getting run around regarding battery Reactive a irway disease 8404418510 06 J45.909 Continue MDI Malignant tumor of lung 439234879 C34.[address] Carrillo, Oncology, will continue Chest ct w/o surveilanc e for Bronchogen ic carcinoma , last appointmen t on 10/14/21. Clinical staging 1A2, seeing Dr. Walter carrillo for stereotact ic radiosurge ry, Treatments have been completed Former hea vy tobacco smoker [id number] 87330 Z87.891 Stop smoking Essential hypertension 13713838 I10 Managed in primary care. Continue to monitor blood pressure. Encourage low salt diet and exercise. History of pneumonia 161 763550 Z87.01 10/07/21 developed a fever, chills, and increased dyspnea with wheezing earlier this month. She presented to the ED for further management . She was diagnosed with a bacterial pneumonia and reportedly negative COVID test. Antibiotic s were prescribed and she had improvemen t in symptoms. [id number] Jamie Snell MD [facility] [address] [place] [address] 03/28/2022 11:43:46 03/28/2022 12:18:20 Chronic obstructive pulmonary disease 68847537 J44.9 Continue symbicort, atrovent, albuterol and nebs as prescribed MDI teaching Chronic re spiratory failure 70399676 J96.10 Continue supplement al O2, 2L O2 NC at rest/ activity Compliant and benefiting from usage Reactive a irway disease 5881918808 06 J45.909 Continue MDI Malignant tumor of lung 842266206 C34.[address] Carrillo, Oncology, will continue Chest ct w/o surveilanc e for Bronchogen ic carcinoma , Clinical staging 1A2, seeing Dr. Walter carrillo for stereotact ic radiosurge ry, Treatments have been completed Essential hypertension 11085528 I10 [id number] Darshan Townsend MD [facility] (Adult Med) [address] [place] [address] 04/22/2022 12:01:22 04/23/2022 11:31:47 Screening for malignant neoplasm of breast 601431691 Z12.31 Impaired mobility 659945 05 Z74.09 Immunization advised 310 047482 Z71.9 Body mass index 30+ - obesity 104656237 Z68.30 Administra tion of pneumococcal vaccine 88752048 Z23 Persistent cough 6001689 02 R05.3 Bradycardia 02769362 R00 .1 Most likely from her Metoprolol [id number] Jamie Snell MD [facility] [address] [place] [address] 06/27/2022 11:57:22 06/27/2022 14:11:10 Chronic obstructive pulmonary disease 13903600 J44.9 Continue symbicort, atrovent, albuterol and nebs as prescribed MDI teaching Chronic re spiratory failure 66606762 J96.10 Continue supplement al O2, 2L O2 NC at rest/ activity Compliant and benefiting from usage Reactive a irway disease 9625742764 06 J45.909 MDIs Malignant tumor of lung 947426963 C34.[address] Carrillo, Oncology, will continue Chest ct w/o surveilanc e for Bronchogen ic carcinoma , Treatments have been completed Essential hypertension 75905223 I10 [id number] FEDERICO HUNTER NP [facility] [address] [place] [address] 09/26/2022 11:49:55 09/26/2022 13:08:41 Chronic obstructive pulmonary disease 89442959 J44.9 COPD exacerbati onCXRcompl ete antibiotic s and steroidsSt art prednisone 5mg daily after 20mg dose completedC ontinue symbicort, atrovent, albuterol and nebs as prescribed Continue MDI teaching Symbicort 160 mcg and , nebs, albuterol as needed Reactive a irway disease 4660111970 06 J45.909 Continue MDIs and nebs Malignant tumor of lung 942384233 C34.[address] Carrillo, Oncology, will continue Chest ct w/o surveilanc e for Bronchogen ic carcinoma , Treatments have been completed Essential hypertension 43631284 I10 Pulmonary emphysema 8743 3001 J43.9 [id number] Darshan Townsend MD [facility] (Adult Med) [address] [place] [address] 10/20/2022 11:49:03 10/21/2022 09:35:28 Body mass index 30+ - obesity 316865773 Z68.30 Immunization advised 310 000808 Z71.9 Her Pneumonia vaccine series is complete Coronary arteriosclerosis in [place] artery 1765019281 107 Z51.81 Medication monitoring 39 8963595 Z51.81 Imaging of lung abnormal 291931280 R91.8 Stable Abnormal f indings on diagnostic imaging of breast 552899220 R92.8 Stable [id number] FEDERICO HUNTER NP [facility] [address] [place] [address] 12/30/2022 11:08:05 12/30/2022 14:17:44 Chronic obstructive pulmonary disease 69485284 J44.9 stable Continue MDI teaching Symbicort 160 mcg nebs, albuterol as needed Reactive a irway disease 4705764234 06 J45.909 Continue MDIs and nebs Malignant tumor of lung 402082719 C34.[address] Carrillo, Oncology Chest ct w/o contrast 10/10/22; stable, no evidence of active malignancy or metastatic diseaseTre atments have been completed Essential hypertension 49918934 I10 [id number] Darshan Townsend MD [facility] (Adult Med) [address] [place] [address] 04/22/2023 12:12:27 04/24/2023 06:26:52 Benign hypertension 26271450 I10 Edema of l ower extremity 084874048 R60.0 On Lasix PRN only Pure hypercholesterolemia 745749711 E78.00 Continue 80mg of Atorvastat in, Impaired f asting glycemia 695564290 R73.01 Discussed Eruption 610306227 R21 Coronary arteriosclerosis 79739146 I25.10 [id number] Jamie Snell MD [facility] [address] [place] [address] 07/01/2023 11:51:00 07/06/2023 08:13:44 Chronic obstructive pulmonary disease 64692001 J44.9 stable Continue MDI teaching Symbicort 160 mcg nebs, albuterol as needed Reactive a irway disease 3079503140 06 J45.909 Continue MDIs and nebsMDI teaching Malignant tumor of lung 268396954 C34.[address] Carrillo, Oncology Chest ct w/o contrast 10/10/22; stable, no evidence of active malignancy or metastatic diseaseTre atments have been completed Essential hypertension 46885713 I10 continue home meds Moderate p ersistent asthma 580716372 J45.40 [id number] Jamie Snell MD [facility] [address] [place] [address] 10/07/2023 12:06:48 10/08/2023 08:04:39 Chronic obstructive pulmonary disease 13416075 J44.9 stable Continue MDI teaching Symbicort 160 mcg nebs, albuterol as needed Coronary arteriosclerosis in [place] artery 0407464314 107 I25.10 Reactive a irway disease 5402312264 06 J45.909 Continue MDIs and nebDI teaching Malignant tumor of lung 494017183 C34.[address] Carrillo, Oncology Chest ct w/o contrast 10/10/22; stable, no evidence of active malignancy or metastatic diseaseTre atments have been completed Essential hypertension 02519527 I10 continue home meds Moderate p ersistent asthma 236427530 J45.40 Severe chr onic obstructive pulmonary disease 232650834 J44.9 [id number] Darshan Townsend MD [facility] (Adult Med) [address] [place] [address] 10/27/2023 11:58:34 10/29/2023 20:19:50 Chronic obstructive pulmonary disease 98692768 J44.9 She is unable to tolerate the medication s on formulary, Breo and Wixela and Airsupra is not appropriat e.Stop WixelaPA for Symbicort. Immunization advised 310 781850 Z71.9 COVID vaccine Screening mammography 24 507975 Z12.31 [id number] Jamie Snell MD [facility] [address] [place] [address] 01/06/2024 14:10:35 01/06/2024 14:54:38 Chronic obstructive pulmonary disease 21193917 J44.9 stable Continue MDI teaching Symbicort 160 mcg nebs, albuterol as needed Severe chr onic obstructive pulmonary disease 694796513 J44.9 Coronary arteriosclerosis in [place] artery 3418561814 107 I25.10 Reactive a irway disease 6214515118 06 J45.909 Continue MDIs and nebDI teaching Malignant tumor of lung 461512791 C34.[address] Carrillo, Oncology Chest ct w/o contrast 10/10/22; stable, no evidence of active malignancy or metastatic diseaseTre atments have been completed Essential hypertension 27387548 I10 continue home meds Moderate p ersistent asthma 630426882 J45.40 Asthma 625770995 J45.90 9 [id number] Darshan Townsend MD [facility] (Adult Med) [address] [place] [address] 03/30/2024 11:59:04 04/06/2024 08:32:49 Eruption 715253588 R21 Milia?, Photosensi tive rash? Infection of skin 624511 000 L08.9 General ex amination of patient 358173601 Z00.01 Postmenopausal state 764 92608 Z78.0 [id number] Jamie Snell MD [facility] [address] [address] 04/06/2024 12:25:09 04/06/2024 12:55:19 Chronic obstructive pulmonary disease 64453960 J44.9 stable Continue MDI teaching Symbicort 160 mcg nebs, albuterol as needed Severe chr onic obstructive pulmonary disease 075863129 J44.9 Coronary arteriosclerosis in [place] artery 8543286871 107 I25.10 Reactive a [place]way disease 7782818434 06 J45.909 Continue MDIs and nebsMDI teaching Malignant tumor of lung 900287376 C34.[address] Carrillo, Oncology Chest ct w/o contrast 10/10/22; stable, no evidence of active malignancy or metastatic diseaseTre atments have been completed Essential hypertension 61156340 I10 continue home meds Moderate p ersistent asthma 101439361 J45.40 Asthma 475822771 J45.90 [id number] MD [facility] (Adult Med) [address] [place] [address] 09/30/2024 11:48:47 10/04/2024 16:41:17 Osteopenia 698036891 M85.80 Discussed in detailWeig ht bearing exercises Body mass index 25-29 - overweight 893701566 Z68.26 Overweight 178953373 E66 .3 Vitamin D deficiency 347 86061 E55.9 Labs 04/27/2024 Vitamin D 13On Vitamin D Alkaline p hosphatase above reference range 488753899 R74.8 SARS-CoV-2 mRNA vaccine declined 5187973348 Z28.21 Impaired f asting glycemia 610331467 R73.01 Medication monitoring 39 0727187 Z51.81 Screening for malignant neoplasm of breast 490872642 Z12.31 Health Concerns Section Related Observation LastModified by Organization Detai ls LastModified Time None Recorded Concern Status LastModified by Organization Details LastModified Time None Recorded Advance Directives Directive N: Payers Encounter Date Sequence Insurance Name Policy Number Policy Rachel Covered Member ID Rachel Member ID Guarantor Name 10/27/2023 1 [employer] - PRIME (MEDICARE REPLACEMENT/AD VANTAGE - HMO) [id number] July K Poneta [id number] July Poneta 01/06/2024 1 [employer] (MEDICARE REPLACEMENT PPO) [id number] July K Poneta [id number] July Poneta 01/06/2024 2 [employer] ON [place] AFTER 2020 (MEDICAID REPLACEMENT - HMO) July K Poneta [id number] July Poneta 03/30/2024 1 [employer] - [place] (MEDICARE REPLACEMENT/AD VANTAGE - HMO) [id number] July K Poneta [id number] July [place] 03/30/2024 2 [place] WHEN MED[place]ARE OR MEDICARE REPLACEMENT PRIMARY) July Poneta [id number] July Poneta 04/06/2024 1 [employer] (MEDICARE REPLACEMENT PPO) [id number] July K Poneta [id number] July Poneta 04/06/2024 2 [employer] 2020 (MEDICAID REPLACEMENT - HMO) July K Poneta [id number] July Pon[place] 09/30/2024 1 [employer] - [place] (MEDICARE REPLACEMENT/AD VANTAGE - HMO) [id number] July Lloyd [id number] July Lloyd 09/30/2024 2 [employer] AFTER 07/17/2020 (MEDICAID REPLACEMENT - HMO) July Lloyd [id number] July Lloyd Notes Date Note Type Note Provider Name and Address Organization Details Recorded Time 10/27/2023 text/html Ms Lloyd is lissy ble to tolerate Breo or Wixela as the powder just gets stuck in the back of her throat, the other option is Airsupra which is not a LABA/CCS. She never had any issues with Symbicort. 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 Darshan Townsend MD Attn: Accounting,[address] [place], [address], [facility] 10/27/2023 12:58:38 01/06/2024 text/html follow up COPD/c hronic respiratory failurereports good day and bad days+BAXTER,denies increased SOB, cough, or feverDME - Prydeinig Home pt2L O2 NC at rest/ activityusing symbicortAtrovent as prescribedFollowed by Dr. Carrillo, Oncology, will continue Chest ct w/o surveilance for Bronchogenic carcinoma ,next appointment 05/09Chest ct w/o contrast 10/10/22; stable, no evidence of active malignancy or metastatic diseasePFTs done in July 2023 at [facility] reviewed FEV1/FVC ratio is 77 Jamie Snell MD [address] [place], [address], [facility] 01/06/2024 14:40:59 03/30/2024 text/html Medicare Annual Wellness [...] Here with a gentleman who is her security analyst Just a check up My daughter's dog, [...] topically. Darshan Townsend MD Attn: Accounting,[address] [place], [address], [place] [facility] 03/30/2024 14:46:49 04/06/2024 text/html follow up COPD/c hronic respiratory failure reports good day and bad days denies BAXTER, denies increased SOB, cough, or fever DME - Prydeinig Home pt 2L O2 NC at rest/ activity using symbicort Atrovent as prescribed Followed by Dr. Carrillo, Oncology, will continue Chest ct w/o surveilance for Bronchogenic carcinoma , Chest ct w/o contrast 10/10/22; stable, no evidence of active malignancy or metastatic disease PFTs done in July 2023 at [facility] reviewed FEV1/FVC ratio is 77 PFTs done in [place] are NOT available to review Jamie Snell MD [address] [place], [address], [facility] 04/06/2024 12:43:14 09/30/2024 text/html COPDReported bypatient.Onset/Timing :multiple times per day; chronic; chronic: has not changed Severity:very limiting Alleviating factors:relieved with oxygen; relieved with bronchodilator Associated Symptoms:no snoring; no excessive daytime sleepiness; no arousals from sleep; no decrease in exercise capacity; no fatigue; not coughing up sputum; no cough; no fever; no wheezing; no weight loss; no depression;dyspnea during exertion Here with a gentleman Just routine I decided not to take it, I was reading a lot of stuff about it and i decided not to take it Ms Lloyd is doing well, her fur dry cleaner had stopped her Jardiance and started her on Wegovy, she decided not to take the Wegovy and continued the Jardiance. Darshan Townsend MD Attn: Accounting,[address] [facility], [place], [address], [facility] 09/30/2024 14:14:49 OBGyn Episode No OBEpisode recorded.
--- OUTSIDE RECORDS SUMMARY | 2024-10-11 11:26 | XMS_ITS | Clinical Summary ---
Author Organization [facility] Address [address] [place] [address] Care Team Providers Care Can Sorter Name Role Phone Darshan Ballesteros MD Primary Care Provider Abdiaziz Fuentes DO Unavailable [phone] Cholo Aguilar MD Unavailable Cholo Aguilar MD Unavailable Walter Rowan MD Unavailable [phone] Allergies Active Allergy Reactions Criticality Noted Date Comments Fluticasone Propion-Salmeterol Other (See comments) High 07/08/2019 Meperidine Hives Medium 03/07/2019 hives Oxycodone Hives Medium 06/20/2015 Hives Oxycodone-Acetaminophen Hives Medium 03/07/2019 hives Tiotropium [place] Shortness of breath High 03/20/20 20 Medications [...] for chest pain Active sodium chloride-aloe vera ([place] Saline) gel Active cyclobenzaprine (FLEXERIL) 10 mg [...] on 03/21/2020 Left shoulder tendinitis 03/21/2020 Immunizations Immunization Administration Dates Next Due Tdap 08/16/2003 Surgical [...] on file Legal 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 Gender Identity Not on file Sexual Orientation [...] Screening 1955 Osteoporosis Screening-Bone Density Scan 1956 Hepatitis B Screening 1974 Pneumococcal vaccine 65+ (1 of 2 - PCV) 1975 Zoster Vaccine (1 of 2) 2006 DTaP/Tdap/Td Vaccine (2 - Td or Tdap) 08/16/2013 08/16/2003 Well Visit 65+ 2021 Breast Cancer Screening-Mammogram 06/24/2023 06/24/2022, 12/12/2020, 09/01/2019, Additional history exists Covid-19 Vaccine (3 - 2023-2 5 season) 2024 08/21/2021, 10/16/2020 Influenza Vaccine (#1) 2024 Insurance [place] [address] AETNA MEDICARE GOLD Care Teams Can Sorter Relationship Specialty Start Date End Date Darshan Ballesteros MD [address] [place] [address] 1 [place] [address] PCP - General Internal Medicine 11/12/18 Abdiaziz Fuentes DO [address] [place] [address] Medical Oncologist/Release Of Information Clerk Hematology and Oncology 10/15/20 Cholo Aguilar MD [address] [facility] [address] [place] [address] Service Station Helper Pulmonary Disease 07/15/21 Cholo Aguilar MD [address] [place] [address] Surgeon Pulmonary Disease 04/21/23 Walter Rowan MD [address] [address] Radiation Oncologist Radiation Oncology 04/01/24
--- OUTSIDE RECORDS SUMMARY | 2024-10-11 11:26 | XMS_ITS ---
Author Organization [facility] Address [address] [place] [address] Care Team Providers Care Residential Pest Control Technician Name Role Phone Darshan Ballesteros MD Primary Care Provider Abdiaziz Fuentes DO Unavailable [phone] Cholo Aguilar MD Unavailable Cholo Aguilar MD Unavailable Walter Rowan MD Unavailable [phone] Active Problems Problem Noted Date Diagnosed Date 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 Cancer Staging:Clinical stage from 03/20/2020:Stage IA2(cT1b, cN0, cM0) - Signed by Abdiaziz Fuentes DO on 03/21/2020 Left shoulder tendinitis 03/21/2020 Current Treatment and Therapy Plans No current plan information found. Past Treatment and Therapy Plans No past plan information found. Radiation Treatments * Course [id number] 04/09/2020 - 04/13/2020 Treatment Period Energy Fraction Dose Fractions Total Dose Plans Planned SBRT R LUNG 04/09/2020 - 04/13/2020 1,800 3 / 5,400 Reference Points Delivered SBRT R LUNG 04/09/2020 - 04/13/2020 5,400
--- OUTSIDE RECORDS SUMMARY | 2024-10-11 11:26 | XMS_ITS | Encounter Summary ---
Author Organization [facility] Care Team Providers Care Ecommerce Marketing Specialist Name Role Phone Darshan Ballesteros MD Primary Care Provider Abdiaziz Fuentes DO Unavailable [phone] Walter Rowan MD Unavailable [phone] Cholo Aguilar MD Unavailable Cholo Aguilar MD Unavailable Walter Rowan MD Unavailable [phone] Encounter Details Date Type Department Care Team (Latest Contact Info) Description 01/28/2018 Orders Only [facility] CLINCONV ProviderDayan MD [address] [place] [address] Social History Tobacco Use Types Packs/Day Years Used Date Smoking Tobacco: Never Assessed Comments Unknown Sex and Gender Information Value Date Recorded Sex Assigned at Not on file 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 Gender Identity Not on file Sexual Orientation [...] on filedocumented in this encounter Care Teams Ecommerce Marketing Specialist Relationship Specialty Start Date End Date Darshan Ballesteros MD [address] [facility] [address] [place] [address] PCP - General Internal Medicine 11/12/18 Abdiaziz Fuentes DO [address] [place] [address] Medical Oncologist/Produce Production Team Member Hematology and Oncology 10/15/20 Walter Rowan MD [address] [place] [address] Radiation Oncologist Radiation Oncology 04/10/21 Cholo Aguilar MD [address] [place] [address] Electronic Coils Supervisor Pulmonary Disease 07/15/21 Cholo Aguilar MD [address] [place] [id number] Surgeon Pulmonary Disease 04/21/23 Walter Rowan MD [address] [place] [id number] Radiation Oncologist Radiation Oncology 04/01/24 documented as of this encounter
--- OUTSIDE RECORDS SUMMARY | 2024-10-11 11:26 | XMS_ITS | Referral Summary ---
Author Organization [facility] Address [address] [place] [address] Care Team Providers Care Mannequin Mold Maker Name Role Phone Darshan Ballesteros MD Primary Care Provider Abdiaziz Fuentes DO Unavailable [phone] Cholo Aguilar MD Unavailable Cholo Aguilar MD Unavailable Walter Rowan MD Unavailable [phone] Allergies Active Allergy Reactions Criticality Noted Date Comments Fluticasone Propion-Salmeterol Other (See comments) High 07/08/2019 Meperidine Hives Medium 03/07/2019 hives Oxycodone Hives Medium 06/20/2015 Hives Oxycodone-Acetaminophen Hives Medium 03/07/2019 hives Tiotropium Wren Shortness of breath High 03/20/20 20 Medications [...] for chest pain Active sodium chloride-aloe vera ([place] Saline) gel Active cyclobenzaprine (FLEXERIL) 10 mg [...] Immunization Administration Dates Next Due Tdap 08/16/2003 Social [...] on file 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 Gender Identity Not on file Sexual [...] GOLD IDPA AETNA MEDICARE GOLD Care Teams Mannequin Mold Maker Relationship Specialty Start Date End Date Darshan Ballesteros MD [address] [place] [address] PCP - General Internal Medicine 11/12/18 Abdiaziz Fuentes DO [address] [place] [address] Medical Oncologist/Ticket Collector Or Usher Hematology and Oncology 10/15/20 Cholo Aguilar MD [address] [place] [address] Director Apparel Pulmonary Disease 07/15/21 Cholo Aguilar MD [address] [place] [address] Surgeon Pulmonary Disease 04/21/23 Walter Rowan MD [address] [place] [address] Radiation Oncologist Radiation Oncology 04/01/24
--- OUTSIDE RECORDS SUMMARY | 2024-10-11 11:26 | XMS_ITS | Encounter Summary ---
Author Organization [facility] Facility Care Team Providers Care Hotel Front Desk Agent Name Role Phone Darshan Ballesteros MD Primary Care Provider Abdiaziz Fuentes DO Unavailable [phone] Walter Rowan MD Unavailable [phone] Cholo Aguilar MD Unavailable Cholo Aguilar MD Unavailable Walter Rowan MD Unavailable [phone] Encounter Details Date Type Department Care Team (Latest Contact Info) Description 06/06/2015 Orders Only [facility] CLINCONV ProviderDayan MD [address] [place] [address] Social History Tobacco Use Types Packs/Day Years Used Date Smoking Tobacco: Never Assessed Comments Unknown Sex and Gender Information Value Date Recorded Sex Assigned at Not on file 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 Gender Identity Not on file Sexual Orientation [...] on filedocumented in this encounter Care Teams Hotel Front Desk Agent Relationship Specialty Start Date End Date Darshan Ballesteros MD [address] [facility] 1 [place] [address] PCP - General Internal Medicine 11/12/18 Abdiaziz Fuentes DO [facility] [address] Medical Oncologist/Embroiderer Hematology and Oncology 10/15/20 Walter Rowan MD [address] [place] [address] [phone] Radiation Oncologist Radiation Oncology 04/10/21 Cholo Aguilar MD [address] [place] [address] [phone] Sephora Operations Consultant Pulmonary Disease 07/15/21 Cholo Aguilar MD [address] [place] [address] [phone] Surgeon Pulmonary Disease 04/21/23 Walter Rowan MD [address] [place] [address] 515609 Radiation Oncologist Radiation Oncology 04/01/24 documented as of this encounter
--- OUTSIDE RECORDS SUMMARY | 2024-10-11 11:26 | XMS_ITS | Encounter Summary ---
Author Organization [facility] Facility Care Team Providers Care Television Repairman Name Role Phone Darshan Ballesteros MD Primary Care Provider Abdiaziz Fuentes DO Unavailable [phone] Walter Rowan MD Unavailable [phone] Cholo Aguilar MD Unavailable Cholo Aguilar MD Unavailable Walter Rowan MD Unavailable [phone] Encounter Details Date Type Department Care Team (Latest Contact Info) Description 06/08/2015 Orders Only MMG CLINCONV ProviderDayan MD [address] [place] [address] Social History Tobacco Use Types Packs/Day Years Used Date Smoking Tobacco: Never Assessed Comments Unknown Sex and Gender Information Value Date Recorded Sex Assigned at Not on file 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 [place] [facility] [address] Medical Oncologist/Avionics System Engineer Hematology and Oncology 10/15/20 Walter Rowan MD [address] [place] [address] [phone] Radiation Oncologist Radiation Oncology 04/10/21 Cholo Aguilar MD [address] [place] [address] 112119 Remote Control Mirror Installer Pulmonary Disease 07/15/21 Cholo Aguilar MD [address] [place] [address] [phone] Surgeon Pulmonary Disease 04/21/23 Walter Rowan MD [address] [place] [address] 212559 Radiation Oncologist Radiation Oncology 04/01/24 documented as of this encounter
== END 2024-10-11 09:59 | disposition home or self-care (01) ==
PROVIDERS: PCP Internal Medicine Infectious Disease; Visit Provider Radiology Radiation Oncology
DX: C34.91 Malignant neoplasm of unspecified part of right bronchus or lung (principal); J43.9 Emphysema, unspecified; R91.8 Other nonspecific abnormal finding of lung field
CPT/HCPCS: 71250

== ENCOUNTER 2025-04-10 13:57 | Outpatient (CLI) | payer MEDICARE, MEDICAID, SELFPAY ==
--- NOTE | ~2025-04-10 | CT_ITS ---
EXAMINATION: CT diagnostic chest wo con DATE: 04/10/2025 14:11 INDICATION: Right lung cancer TECHNIQUE: Computed tomography (CT) of the chest was performed without intravenous contrast. The dose-length product was 247.40 mGy-cm. COMPARISON: Chest CT 10/11/2024 FINDINGS: No enlarged mediastinal or hilar lymph nodes. Heart is unenlarged. Thoracic aorta is partially calcified but is not aneurysmal. Visualized upper abdomen is grossly unchanged. Tracheobronchial tree is grossly unchanged. No pneumothorax. No pleural effusion. Grossly stable centrilobular emphysema. Stable mild scarring in the left lung apex. Grossly stable size and configuration of the bandlike opacity which extends from the right hilum to the pleura. Bones appear osteopenic. Multilevel degenerative change in the visualized spine similar to the prior study. IMPRESSION: 1. Overall, grossly stable exam as compared to the study from 10/11/2024. Reviewed, dictated and finalized at location Q.
--- OUTSIDE RECORDS SUMMARY | 2025-04-10 14:03 | XMS_ITS | Clinical Summary ---
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 Gender Identity Not on file Sexual Orientation Not on file Plan of Treatment Health Maintenance Due Date Last Done Comments Hepatitis C Virus (HCV) Screening 1956 Cologuard 2001 Colonoscopy 2001 Colorectal Cancer Screening 2001 Immunochemical Fecal Occult Blood 2001 Pneumococcal Immunization (50+ years) (1 of 1 - PCV) 2006 Zoster Immunization (1 of 2) 2006 SARS-COV-2 Immunization ( season) 2024 08/21/2021, 11/06/2020, 10/16/2020, Additional history exists Influenza Immunization (#1) 2025 Respiratory Syncytial Virus (RSV) Immunization (Adult) (1 - 1-dose 75+ series) 2031 DTaP/Tdap/Td Immunization Discontinued 08/16/2003 TdaP Immunization Completed 08/16/2003 Hepatitis B Immunization Aged Out No longer eligible based on patient's age to complete this topic Human Papillomavirus (HPV) Immunization Aged Out No longer eligible based on patient's age to complete this topic Meningococcal Immunization (ACWY) Aged Out No longer eligible based on patient's age to complete this topic Rotavirus Immunization Aged Out No lo nger eligible based on patient's age to complete this topic
== END 2025-04-10 13:58 | disposition home or self-care (01) ==
PROVIDERS: PCP Internal Medicine Infectious Disease; Visit Provider Radiology Radiation Oncology
DX: C34.91 Malignant neoplasm of unspecified part of right bronchus or lung (principal)
CPT/HCPCS: 71250

== ENCOUNTER 2025-05-09 15:14 | Outpatient (CLI) | payer MEDICARE, MEDICAID, SELFPAY ==
--- NOTE | ~2025-05-09 | MM_ITS ---
EXAMINATION: MM screening lucio BI w arianna HISTORY: Screening TECHNIQUE: Craniocaudal and mediolateral oblique 3-D tomosynthesis images were obtained and synthetic 2-D images were generated. CAD analysis was submitted and interpreted. COMPARISON: 02/15/2024 BREAST PARENCHYMAL COMPOSITION: There are scattered areas of fibroglandular density. FINDINGS: There is no evidence of suspicious mass, calcification, or architectural distortion to suggest malignancy. There has been no suspicious interval change. IMPRESSION: 1. No mammographic evidence of malignancy. Recommend routine screening mammography in one year. BI-RADS Category 2: Benign finding(s) Reviewed, dictated and finalized at location Q. IMPRESSION: 1. No mammographic evidence of malignancy. Recommend routine screening mammogra phy in one year. BI-RADS Category 2: Benign finding(s)
--- OUTSIDE RECORDS SUMMARY | 2025-05-09 15:16 | XMS_ITS | Clinical Summary ---
Author Organization [facility] Address [address] [place] [address] Care Team Providers Care Cushion Mat Maker Name Role Phone Darshan Ballesteros MD Primary Care Provider Abdiazzi Fuentes DO Unavailable [phone] Cholo Aguilar MD Unavailable Cholo Aguilar MD Unavailable Walter Rowan MD Unavailable [phone] Allergies Active Allergy Reactions Criticality Noted Date Comments Fluticasone Propion-Salmeterol Other (See comments) High 07/08/2019 Meperidine Hives Medium 03/07/2019 hives Oxycodone Hives Medium 06/20/2015 Hives Oxycodone-Acetaminophen Hives Medium 03/07/2019 hives Tiotropium [place] Shortness of breath High 03/20/20 20 Medications [...] for chest pain Active sodium chloride-aloe vera ([place] Saline) gel Active cyclobenzaprine (FLEXERIL) 10 mg [...] mg total) by mouth daily 3 Active calcium carbonate-vitam in D3 (CALTRATE 600 + D) 1500 mg (600 mg elemental) -400 units per tablet Take 1 tablet by mouth daily 5 Active Active Problems Problem Noted Date Diagnosed Date 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 Cancer Staging:Clinical stage from 03/20/2020:Stage IA2(cT1b, cN0, cM0) - Signed by Abdiaziz Fuentes DO on 03/21/2020 Left shoulder tendinitis 03/21/2020 Encounters Date Type Department Care Team Description 04/26/2025 1:30 PM CDT Office Visit [facility] 2 Radiation Oncology [address] [place] [address] Walter Rowan MD Bronchogenic carcinoma of right lung (HCC) (Primary Dx) from Last 3 Months Immunizations Immunization Administration Dates Next Due Tdap 08/16/2003 Surgical History Surgery Date Site/Laterality Comments HERNIA REPAIR CARPAL TUNNEL RELEASE PARTIAL HYSTERECTOMY HYSTERECTOMY Medical History Medical History Date Comments Depression Emphysema, unspecified Bronchitis Hypercholesteremia Hypertension Peptic ulceration CAD (coronary [...] drink = 0.6 oz pur e alcohol) Comments Unknown Sex and Gender Information Value Date Recorded Sex Assigned at Not on file Legal Sex Female 2:47 AM HOOKMAN Gender Identity Not on file Sexual Orientation Not on file 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 on file Not on file Obstetrics History Last Filed Vital Signs Vital Sign Reading Time Taken Comments Blood Pressure 144/59 04/26/2025 1:41 PM CDT Pulse 66 04/26/2025 1:41 PM CDT Temperature 36.7 C (98.1 F) 03/20/2020 4:18 PM CDT Respiratory Rate 16 03/20/2020 4:18 PM CDT Oxygen Saturation 96% 04/26/2025 1:41 PM CDT Inhaled Oxygen Concentration - - Weight 67.6 kg (149 lb) 04/26/2025 1:41 PM CDT Height 152.4 cm (5') 03/20/2020 4:18 PM CDT Body Mass Index 29.1 03/20/2020 4:18 PM CDT Plan of Treatment [...] Additional history exists Covid-19 Vaccine ( - 2024-2 6 season) 2025 08/21/2021, 10/16/2020 Influenza Vaccine (#1) 2025 [place] [address] [employer] AETNA MEDICARE GOLD IDTN AETNA MEDICARE GOLD Care Teams Cushion Mat Maker Relationship Specialty Start Date End Date Darshan Ballesteros MD [address] [place] [address] PCP - General Internal Medicine 11/12/18 Abdiaziz Fuentes DO [address] [place] [address] Medical Oncologist/Claims Auditor Hematology and Oncology 10/15/20 Cholo Aguilar MD [address] [place] [address] Oyster Washer Pulmonary Disease 07/15/21 Cholo Aguilar MD [address] [place] [address] Surgeon Pulmonary Disease 04/21/23 Walter Rowan MD [address] [place] [address] Radiation Oncologist Radiation Oncology 04/01/24
--- OUTSIDE RECORDS SUMMARY | 2025-05-09 15:16 | XMS_ITS | Encounter Summary ---
Author Organization [facility] Facility Care Team Providers Care Patient Accounts Manager Name Role Phone Darshan Ballesteros MD Primary Care Provider Abdiaziz Fuentes DO Unavailable [phone] Walter Rowan MD Unavailable [phone] Cholo Aguilar MD Unavailable Cholo Aguilar MD Unavailable Walter Rowan MD Unavailable [phone] Encounter Details Date Type Department Care Team (Latest Contact Info) Description 06/08/2015 Orders Only MMG CLINCONV ProviderDayan MD [address] [place] [address] Social History Tobacco Use Types Packs/Day Years Used Date Smoking Tobacco: Never Assessed Comments Unknown Sex and Gender Information Value Date Recorded Sex Assigned at Not on file Legal Sex Female 2:47 AM SERVICER Gender Identity Not on file Sexual Orientation [...] Ordered by an unspecified provider. Historical Provider [facility] Final Result documented in this encounter Visit Diagnoses Not on filedocumented in this encounter Care Teams Patient Accounts Manager Relationship Specialty Start Date End Date Darshan Ballesteros MD [address] [address] PCP - General Internal Medicine 11/12/18 Abdiaziz Fuentes DO [address] [place] [address] [phone] Medical Oncologist/Poultry Processing Supervisor Hematology and Oncology 10/15/20 Walter Rowan MD [address] [place] [address] 163049 Radiation Oncologist Radiation Oncology 04/10/21 Cholo Aguilar MD [address] [place] [address] [phone] Police Justice Pulmonary Disease 07/15/21 Cholo Aguilar MD [address] [place] [address] [phone] Surgeon Pulmonary Disease 04/21/23 Walter Rowan MD [address] [place] [address] 180769 Radiation Oncologist Radiation Oncology 04/01/24 documented as of this encounter
--- OUTSIDE RECORDS SUMMARY | 2025-05-09 15:16 | XMS_ITS | Encounter Summary ---
Author Organization [facility] Facility Care Team Providers Care Flight Service Specialist Name Role Phone Darshan Ballesteros MD Primary Care Provider Abdiaziz Fuentes DO Unavailable [phone] Walter Rowan MD Unavailable [phone] Cholo Aguilar MD Unavailable Cholo Aguilar MD Unavailable Walter Rowan MD Unavailable [phone] Encounter Details Date Type Department Care Team (Latest Contact Info) Description 06/06/2015 Orders Only MMG CLINCONV ProviderDayan MD [address] [place] [address] Social History Tobacco Use Types Packs/Day Years Used Date Smoking Tobacco: Never Assessed Comments Unknown Sex and Gender Information Value Date Recorded Sex Assigned at Not on file 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 Gender Identity Not on file Sexual Orientation [...] on filedocumented in this encounter Care Teams Flight Service Specialist Relationship Specialty Start Date End Date Darshan Ballesteros MD [address] [address] PCP - General Internal Medicine 11/12/18 Abdiaziz Fuentes DO [address] [place] [address] 285779 Medical Oncologist/Data Report Analyst Hematology and Oncology 10/15/20 Walter Rowan MD [address] [place] [address] 562339 Radiation Oncologist Radiation Oncology 04/10/21 Cholo Aguilar MD [address] [place] [address] [phone] Coding Support Specialist Pulmonary Disease 07/15/21 Cholo Aguilar MD [address] [place] [address] 014579 Surgeon Pulmonary Disease 04/21/23 Walter Rowan MD [address] [place] [address] [phone] Radiation Oncologist Radiation Oncology 04/01/24 documented as of this encounter
--- OUTSIDE RECORDS SUMMARY | 2025-05-09 15:16 | XMS_ITS ---
Author Organization [facility] Address [address] [place] [address] Care Team Providers Care Audograph Operator Name Role Phone Darshan Ballesteros MD Primary Care Provider Abdiaziz Fuentes DO Unavailable [phone] Cholo Aguilar MD Unavailable Cholo Aguilar MD Unavailable Walter Rowan MD Unavailable [phone] Active Problems Problem Noted Date Diagnosed [...]
--- OUTSIDE RECORDS SUMMARY | 2025-05-09 15:16 | XMS_ITS | Clinical Summary ---
Author Organization 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
--- OUTSIDE RECORDS SUMMARY | 2025-05-09 15:16 | XMS_ITS | Encounter Summary ---
Author Organization [facility] Facility Care Team Providers Care Institutional Cook Name Role Phone Darshan Ballesteros MD Primary Care Provider Abdiaziz Fuentes DO Unavailable [phone] Walter Rowan MD Unavailable [phone] Cholo Aguilar MD Unavailable Cholo Aguilar MD Unavailable Walter Rowan MD Unavailable [phone] Encounter Details Date Type Department Care Team (Latest Contact Info) Description 10/10/2015 Orders Only MMG CLINCONV ProviderDayan MD [address] [place] [address] Social History Tobacco Use Types Packs/Day Years Used Date Smoking Tobacco: Never Assessed Comments Unknown Sex and Gender Information Value Date Recorded Sex Assigned at Not on file Legal Sex Female 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 Gender Identity Not on file Sexual [...] on filedocumented in this encounter Care Teams Institutional Cook Relationship Specialty Start Date End Date Darshan Ballesteros MD [address] [address] PCP - General Internal Medicine 11/12/18 Abdiaziz Fuentes DO [address] [place] [address] 405909 Medical Oncologist/Broomcorn Grader Hematology and Oncology 10/15/20 Walter Rowan MD [address] [place] [address] [phone] Radiation Oncologist Radiation Oncology 04/10/21 Cholo Aguilar MD [address] [place] [address] [phone] Layout Inspector Pulmonary Disease 07/15/21 Cholo Aguilar MD [address] [place] [address] [phone] Surgeon Pulmonary Disease 04/21/23 Walter Rowan MD [address] [place] [address] 855019 Radiation Oncologist Radiation Oncology 04/01/24 documented as of this encounter
--- OUTSIDE RECORDS SUMMARY | 2025-05-09 15:16 | XMS_ITS | Encounter Summary ---
Author Organization [facility] Facility Care Team Providers Care Junior Account Executive Name Role Phone Darshan Ballesteros MD Primary Care Provider Abdiaziz Fuentes DO Unavailable [phone] Walter Rowan MD Unavailable [phone] Cholo Aguilar MD Unavailable Cholo Aguilar MD Unavailable Walter Rowan MD Unavailable [phone] Encounter Details Date Type Department Care Team (Latest Contact Info) Description 06/20/2015 Orders Only MMG CLINCONV ProviderDayan MD [address] [place] [address] Social History Tobacco Use Types Packs/Day Years Used Date Smoking Tobacco: Never Assessed Comments Unknown Sex and Gender Information Value Date Recorded Sex Assigned at Not on file Legal Sex Female 2:47 AM PREFITTER DOORS Gender Identity Not on file Sexual Orientation [...] on filedocumented in this encounter Care Teams Junior Account Executive Relationship Specialty Start Date End Date Darshan Ballesteros MD [address] [address] PCP - General Internal Medicine 11/12/18 Abdiaziz Fuentes DO [address] 045159 Medical Oncologist/Supervisor Quality Control Hematology and Oncology 10/15/20 Walter Rowan MD [address] [phone] Radiation Oncologist Radiation Oncology 04/10/21 Cholo Aguilar MD [address] [facility] [address] [place] [address] Gritting Machine Operator Pulmonary Disease 07/15/21 Cholo Aguilar MD [address] [facility] [address] [place], [place] 214219 Surgeon Pulmonary Disease 04/21/23 Walter Rowan MD [address] 169219 Radiation Oncologist Radiation Oncology 04/01/24 documented as of this encounter
--- OUTSIDE RECORDS SUMMARY | 2025-05-09 15:16 | XMS_ITS | Encounter Summary ---
Author Organization [facility] Care Team Providers Care Donor Relations Officer Name Role Phone Darshan Ballesteros MD Primary Care Provider Abdiaziz Fuentes DO Unavailable [phone] Walter Rowan MD Unavailable [phone] Cholo Aguilar MD Unavailable Cholo Aguilar MD Unavailable Walter Rowan MD Unavailable [phone] Encounter Details Date Type Department Care Team (Latest Contact Info) Description 01/28/2018 Orders Only MMG CLINCONV ProviderDayan MD [address] [place] [address] Social History Tobacco Use Types Packs/Day Years Used Date Smoking Tobacco: Never Assessed Comments Unknown Sex and Gender Information Value Date Recorded Sex Assigned at Not on file Legal Sex Female 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 us Historical Provider Final Res ult documented in this encounter Visit Diagnoses Not on filedocumented in this encounter Care Teams Donor Relations Officer Relationship Specialty Start Date End Date Darshan Ballesteros MD [address] [place] [address] PCP - General Internal Medicine 11/12/18 Abdiaziz Fuentes DO [address] [place] [address] [phone] Medical Oncologist/Career Manager Hematology and Oncology 10/15/20 Walter Rowan MD [address] [place] [address] [phone] Radiation Oncologist Radiation Oncology 04/10/21 Cholo Aguilar MD [address] [place] [address] [phone] Crm Developer Pulmonary Disease 07/15/21 Chloo Aguilar MD [address] [place] [address] 119959 Surgeon Pulmonary Disease 04/21/23 Walter Rowan MD [address] [place] [address] [phone] Radiation Oncologist Radiation Oncology 04/01/24 documented as of this encounter
== END 2025-05-09 15:15 | disposition home or self-care (01) ==
LOC: ANHFOHIMG 15:15
PROVIDERS: PCP Internal Medicine Infectious Disease; Visit Provider Internal Medicine Infectious Disease
DX: Z12.31 Encounter for screening mammogram for malignant neoplasm of breast (principal)
CPT/HCPCS: 77063; 77067